=== PATIENT | male | born 1930 | race Asian ===

== ENCOUNTER → 2016-06-10 | Outpatient (CLI) | payer BC ==
[~2016-06-10] MED LIST: ATOR-22 PO; CALC-20 PO; CARB25TA PO; CEPH500C2 PO; CHOL1000 PO; FERR325T74 PO; HYDR-5688 PO; LOSA100T2 PO; METO25TA56 PO; PLV75 PO; RASA1TAB PO; SILO8CAP PO; TOLT2TAB9 PO; TRAV0.00 OP; VSC/10 PO
== END | disposition home or self-care (01) ==
LOC: C.MAMM 14:54
PROVIDERS: ATTEND Family Medicine
DX: M81.0 Age-related osteoporosis without current pathological fracture (principal)

== ENCOUNTER → 2016-09-17 | Outpatient (CLI) | payer BC ==
[~2016-09-17] MED LIST changes: -CEPH500C2 PO; -HYDR-5688 PO
[2016-09-17 17:30] LABS: BLOOD UREA NITROGEN 46 mg/dl (7-18)
== END | disposition home or self-care (01) ==
LOC: C.LABBC 14:48
PROVIDERS: ATTEND Psychiatry & Neurology Neurology
DX: N18.3 Chronic kidney disease, stage 3 (moderate) (principal); R48.2 Apraxia; F09 Unspecified mental disorder due to known physiological condition

== ENCOUNTER → 2016-09-19 | Outpatient (CLI) | payer BC ==
--- NOTE | 2016-09-19 09:13 | DIAGNOSTIC IMAGING REPORT ---
Brain MRI WITHOUT CONTRAST HISTORY: Mental status change COGNITIVE DISORDER TECHNIQUE: Multiplanar multisequence MRI of the brain was performed without the use of contrast. COMPARISON STUDY: None. FINDINGS: There are no areas of restricted diffusion to suggest acute infarction. The midline structures are intact. The paranasal sinuses are clear. The mastoid air cells are clear. The ventricles and sulci are within normal limits for age. There is no mass, hematoma, midline shift. The major vascular flow-voids at the skull base are well maintained. Considerable chronic small vessel change of the periventricular deep white matter regions. No midline shift. Generalized atrophy. IMPRESSION: Moderate atrophy. Considerable chronic small vessel change. No acute intracranial abnormality. Electronically signed by: Jason Steinberg M.D. 09/19/2016 9:11 AM Dictated Date/Time: 09/19/2016 9:08 AM
== END | disposition home or self-care (01) ==
LOC: C.MRIBC 07:45
PROVIDERS: ATTEND Psychiatry & Neurology Neurology
DX: F09 Unspecified mental disorder due to known physiological condition (principal); R48.2 Apraxia; G31.9 Degenerative disease of nervous system, unspecified

== ENCOUNTER 2016-12-26 11:46 | Inpatient (IN) | payer BC, OTHER ==
[~2016-12-26] VITALS: Ht 170.2 cm; Wt 57.7 kg
[~2016-12-26 11:46] MED LIST changes: -PLV75 PO; -TOLT2TAB9 PO
--- NOTE | 2016-12-26 12:35 | EMERGENCY ROOM VISIT NOTE ---
History Report prepared by Alba: Juan Quiroga Under the Supervision of: Dr. Halina Mcdaniels D.O. First contact with patient: 12:16 Chief Complaint: WEAKNESS Stated Complaint: CANNOT WALK Nursing Triage Summary: Patient reports bilateral leg weakness that began yesterday. Patient states he feels like he is not able to pick and shovel worker his feet. Patient also had a recent fall approx a week ago. Patient has bruising to right lower arm and hand from the fall. History of Present Illness The patient is an 86 year old male who presents to the Emergency Room with complaints of sudden onset and worsening bilateral leg weakness that started yesterday. This weakness is worse with walking. The patient reports typically walking with a cane or walker but now being unable to walk at all. Additional symptoms include a loss of appetite and frequent urination. Patient denies fevers, nausea, vomiting, diarrhea, abdominal pain, pain in legs, chest pain, and dizziness. The patient notes that he suffered a fall approximately two weeks ago. Source of History: patient Onset: Yesterday Position: leg (bilateral) Timing: worsening Modifying Factors (Worsening): other (Walking) Associated Symptoms: + urinary symptoms (Frequent urination ), No fevers, No chest pain, No nausea, No vomiting, No diarrhea Note: Additional associated symptoms include loss of appetite. Review of Systems See HPI for pertinent positives & negatives. A total of 10 systems reviewed and were otherwise negative. Past Medical & Surgical Medical Problems: (1) Benign hypertension (2) Heart disease (3) Inguinal hernia (4) Leg weakness, bilateral (5) Parkinson's disease Family History Unknown Social History Smoking Status: Never Smoker Alcohol Use: none Drug Use: none Marital Status: Housing Status: lives with significant other Current/Historical Medications Scheduled Atorvastatin (Lipitor), 20 MG PO QPM Carbidopa-Levodopa (Sinemet Cr 25MG/100MG), 2 TAB PO TID Clopidogrel Bisulfate (Clopidogrel), 1 TAB PO DAILY Losartan Potassium & Hydrochlo (Hyzaar), 1 TABLET PO QAM Metoprolol Tartrate (Lopressor) (Lopressor), 12.5 MG PO BID Rasagiline Mesylate (Azilect), 1 MG PO DAILY Tolterodine Tartrate (Tolterodine Tartrate), 1 TAB PO BID Travoprost (Travatan Z), 1 DROPS OP QAM Allergies Coded Allergies: Alfuzosin (Unverified Allergy, Unknown, DIZZY, 12/26/16) Lactose Intolerance (GI) (Unverified Allergy, Unknown, diarrhea with milk products, 12/26/16) Physical Exam Vital Signs Date Time Temp Pulse Resp B/P (MAP) Pulse Ox O2 Delivery O2 Flow Rate FiO2 12/26/16 17:56 69 13 207/79 99 Room Air 12/26/16 17:28 64 202/85 12/26/16 17:00 62 19 197/90 96 Room Air 12/26/16 16:18 69 12/26/16 16:00 67 20 209/91 96 Room Air 12/26/16 14:53 65 18 194/84 97 Room Air 12/26/16 13:47 57 20 198/73 99 Room Air 12/26/16 12:13 97 Room Air 12/26/16 12:08 50 12/26/16 11:49 36.7 51 18 145/63 98 Room Air Physical Exam GENERAL: alert, well appearing, well nourished, no distress, non-toxic EYE EXAM: normal conjunctiva, PERRL and EOM's grossly intact OROPHARYNX: no exudate, no erythema, lips, buccal mucosa, and tongue normal and mucous membranes are mildly dry. NECK: supple, no nuchal rigidity, no adenopathy, non-tender LUNGS: Clear to auscultation. Normal chest wall mechanics HEART: no murmurs, S1 normal and S2 normal ABDOMEN: abdomen soft, non-tender, normo-active bowel sounds, no masses, no rebound or guarding. BACK: Back is symmetrical on inspection and there is no deformity, no midline tenderness, no CVA tenderness. SKIN: no rashes and no bruising UPPER EXTREMITIES: Resolving ecchymosis of right forearm. upper extremities are otherwise grossly normal. LOWER EXTREMITIES: No pitting edema. NEURO EXAM: Normal sensorium, cranial nerves II-XII grossly intact, normal speech, no gross weakness of arms, no gross weakness of legs. Medical Decision & Procedures ER Provider Diagnostic Interpretation: Radiology results have been interpreted by the radiologist and reviewed by me. HEAD WITHOUT CONTRAST (CT) CT DOSE: 767.83 mGy.cm HISTORY: Mental status change leg weakness TECHNIQUE: Multiaxial CT images of the head were performed without the use of intravenous contrast. A dose lowering technique was utilized adhering to the principles of ALARA. Comparison: 08/12/2012 Findings: The paranasal sinuses and mastoid air cells are clear. Moderate cerebellar as well as cerebral atrophy. No acute intracranial hemorrhage. No midline shift. Impression: No acute process. Atrophy. The above report was generated using voice recognition software. It may contain grammatical, syntax or spelling errors. Electronically signed by: Jason Steinberg M.D. 12/26/2016 1:24 PM Dictated Date/Time: 12/26/2016 1:22 PM RIGHT FOREARM 2 VIEWS ROUTINE CLINICAL HISTORY: fall Right trauma. Pain. COMPARISON: None. DISCUSSION: The bones and joint spaces appear intact. There is no evidence of fracture, dislocation or bony disease. There is no evidence for soft tissue swelling. IMPRESSION: Negative study. The above report was generated using voice recognition software. It may contain grammatical, syntax or spelling errors. Electronically signed by: Jason Steinberg M.D. 12/26/2016 1:36 PM Dictated Date/Time: 12/26/2016 1:35 PM CHEST ONE VIEW PORTABLE CLINICAL HISTORY: weakness dyspnea COMPARISON STUDY: 08/04/2015 FINDINGS: Moderate stable cardiomegaly. Prior median sternotomy. Chronic emphysematous change. Chronic fullness the pulmonary vasculature. No focal infiltrate. IMPRESSION: Moderate stable cardiomegaly. Chronic pulmonary vascular congestion. The above report was generated using voice recognition software. It may contain grammatical, syntax or spelling errors. Electronically signed by: Jason Steinberg M.D. 12/26/2016 1:37 PM Dictated Date/Time: 12/26/2016 1:36 PM Laboratory Results 12/26/16 12:30 Red Blood Count 3.29, Mean Corpuscular Volume 90.3, Mean Corpuscular Hemoglobin 27.4, Mean Corpuscular Hemoglobin Concent 30.3, Mean Platelet Volume 10.7, Neutrophils (%) (Auto) 68.4, Lymphocytes (%) (Auto) 22.6, Monocytes (%) (Auto) 7.5, Eosinophils (%) (Auto) 1.1, Basophils (%) (Auto) 0.2, Neutrophils # (Auto) 3.00, Lymphocytes # (Auto) 0.99, Monocytes # (Auto) 0.33, Eosinophils # (Auto) 0.05, Basophils # (Auto) 0.01 12/26/16 12:30 Test 12/26/16 12:30 12/26/16 12:53 White Blood Count 4.39 K/uL (4.8-10.8) Red Blood Count 3.29 M/uL (4.7-6.1) Hemoglobin 9.0 g/dL (14.0-18.0) Hematocrit 29.7 % (42-52) Mean Corpuscular Volume 90.3 fL (80-100) Mean Corpuscular Hemoglobin 27.4 pg (25-34) Mean Corpuscular Hemoglobin Concent 30.3 g/dl (32-36) Platelet Count 155 K/uL (130-400) Mean Platelet Volume 10.7 fL (7.4-10.4) Neutrophils (%) (Auto) 68.4 % Lymphocytes (%) (Auto) 22.6 % Monocytes (%) (Auto) 7.5 % Eosinophils (%) (Auto) 1.1 % Basophils (%) (Auto) 0.2 % Neutrophils # (Auto) 3.00 K/uL (1.4-6.5) Lymphocytes # (Auto) 0.99 K/uL (1.2-3.4) Monocytes # (Auto) 0.33 K/uL (0.11-0.59) Eosinophils # (Auto) 0.05 K/uL (0-0.5) Basophils # (Auto) 0.01 K/uL (0-0.2) RDW Standard Deviation 48.0 fL (36.4-46.3) RDW Coefficient of Variation 14.6 % (11.5-14.5) Immature Granulocyte % (Auto) 0.2 % Immature Granulocyte # (Auto) 0.01 K/uL (0.00-0.02) Prothrombin Time 10.8 SECONDS (9.0-12.0) Prothromb Time International Ratio 1.0 (0.9-1.1) Anion Gap 6.0 mmol/L (3-11) Est Creatinine Clear Calc Drug Dose 18.4 ml/min Estimated GFR () 27.3 Estimated GFR (Non- 23.5 BUN/Creatinine Ratio 23.2 (10-20) Lactic Acid Level 1.5 mmol/L (0.4-2.0) Calcium Level 8.3 mg/dl (8.5-10.1) Magnesium Level 2.3 mg/dl (1.8-2.4) Total Bilirubin 0.5 mg/dl (0.2-1) Aspartate Amino Transf (AST/SGOT) 17 U/L (15-37) Alanine Aminotransferase (ALT/SGPT) 10 U/L (12-78) Alkaline Phosphatase 61 U/L (45-117) Troponin I 0.048 ng/ml (0-0.045) Total Protein 6.2 gm/dl (6.4-8.2) Albumin 3.5 gm/dl (3.4-5.0) Globulin 2.7 gm/dl (2.5-4.0) Albumin/Globulin Ratio 1.3 (0.9-2) Thyroid Stimulating Hormone (TSH) 0.749 uIu/ml (0.300-4.500) Urine Color YELLOW Urine Appearance CLEAR (CLEAR) Urine pH 6.0 (4.5-7.5) Urine Specific [place] 1.015 (1.000-1.030) Urine Protein 1+ (NEG) Urine Glucose (UA) NEG (NEG) Urine Ketones NEG (NEG) Urine Occult Blood NEG (NEG) Urine Nitrite NEG (NEG) Urine Bilirubin NEG (NEG) Urine Urobilinogen NEG (NEG) Urine Leukocyte Esterase NEG (NEG) Urine WBC (Auto) 0 /hpf (0-5) Urine RBC (Auto) 0-4 /hpf (0-4) Urine Hyaline Casts (Auto) 0 /lpf (0-5) Urine Epithelial Cells (Auto) 0-5 /lpf (0-5) Urine Bacteria (Auto) NEG (NEG) Laboratory results per my review. Medications Administered Medications (Trade) Dose Ordered Sig/Janet Route Start Time Stop Time Status Last Admin Dose Admin Aspirin/Aluminum/ Magnesium/Ca Carb (Ascriptin Tab) 325 mg NOW STAT PO 12/26/16 14:07 12/26/16 14:09 DC 12/26/16 14:50 325 MG Hydralazine HCl (HydrALAZINE INJ) 10 mg Q8H PRN IV. 12/26/16 15:15 01/25/17 15:14 12/26/16 17:31 10 MG Losartan Potassium (coZAAR TAB) 100 mg 1620 ONCE PO 12/26/16 16:20 12/26/16 16:50 DC 12/26/16 17:14 100 MG ECG Indication: weakness Rate (beats per minute): 49 Rhythm: sinus bradycardia Findings: no acute ischemic change, other (Normal axis, normal intervals, flattened t-wave throughout) ED Course 1219: The patient was evaluated in room B8. A complete history and physical exam was performed. 1222: Upon further EMR review, it was found that the patient had an MRI in September for cognitive disorder. 1342: I updated the patient on the treatment plan. He is agreeable at this time. 1407: Ordered Ascriptin Tablet 325 mg PO. 1404: I reviewed the patient's case with Dr. Nelson ([facility] [place]). She will evaluate the patient for further management. Medical Decision Differential Diagnosis includes but is not limited to dehydration, stroke, anemia, hypoglycemia, hyponatremia, hypernatremia, urinary tract infection, pneumonia, bronchitis, sepsis, gastroenteritis, additional abdominal pathology, metabolic abnormalities and infections. Unclear etiology of worsening lower extremity weakness and ambulatory dysfunction. No apparent bacteremia/sepsis or other infectious etiology. Patient with a history of Parkinson's disease leading to shuffling gait, however not usually this ataxic per description of both patient and at bedside. No other recent medication changes, no acute collection light abnormalities, anemia and chronic kidney disease appear stable compared to baseline. Patient admitted here for continued evaluation and treatment, given age and comorbidities and saturation of possible CVA/TIA or cerebellar pathology. Patient and verbalized understanding of all results were agreeable with plan. No evidence of acute cardiac etiology, patient with no history of prior back injury or symptoms to suggest cauda equina/discitis/ epidural abscess or hematoma/acute nerve impingement. Mildly elevated troponin more likely secondary to chronic kidney disease, patient with no symptoms to suggest acute coronary syndrome, EKG not suggestive of acute ischemic changes either. Medication Reconcilliation Current Medication List: was personally reviewed by me Blood Pressure Screening Patient's blood pressure: Elevated blood pressure Blood pressure disposition: Referred to PCP Consults Time Called: 1352 Consulting Physician: Dr. Nelson ([facility] [place]) Returned Call: [phone] I reviewed the patient's case with Dr. Nelson ([facility] [place]). She will evaluate the patient for further management. Impression Primary Impression: Leg weakness, bilateral Additional Impressions: Parkinson's disease Chronic kidney disease (CKD) Elevated troponin Scribe Attestation The scribe's documentation has been prepared under my direction and personally reviewed by me in its entirety. I confirm that the note above accurately reflects all work, treatment, procedures, and medical decision making performed by me. Departure Information Dispostion Being Evaluated By Hospitalist Referrals No Doctor, Assigned (PCP) Patient Instructions My [facility] Problem Qualifiers Additional Impressions: Chronic kidney disease (CKD) Chronic kidney disease stage: unspecified stage Qualified Codes: N18.9 - Chronic kidney disease, unspecified
[2016-12-26 13:02] LABS: BASO % 0.2 %; BASO ABS # 0.01 K/uL (0-0.2); COMPLETE YES; EOS % 1.1 %; HEMATOCRIT 29.7 % (42-52); IG% 0.2 %; LYMPH % 22.6 %; LYMPH ABS # 0.99 K/uL (1.2-3.4); MEAN CELL VOLUME 90.3 fL (80-100); MEAN CORPUSCULAR HEMOGLOBIN 27.4 pg (25-34); MEAN CORPUSCULAR HGB CONC 30.3 g/dl (32-36); MEAN PLATELET VOLUME 10.7 fL (7.4-10.4); MONO % 7.5 %; NEUT % 68.4 %; PLATELET COUNT 155 K/uL (130-400); RED BLOOD COUNT 3.29 M/uL (4.7-6.1); WHITE BLOOD COUNT 4.39 K/uL (4.8-10.8)
[2016-12-26 13:08] LABS: PROTHROMBIN TIME (PATIENT) 10.8 SECONDS (9.0-12.0)
[2016-12-26 13:16] LABS: BUN/CREATININE RATIO 23.2 (10-20); CALCIUM 8.3 mg/dl (8.5-10.1); CREATININE 2.4 mg/dl (0.60-1.40); MAGNESIUM 2.3 mg/dl (1.8-2.4); POTASSIUM 3.7 mmol/L (3.5-5.1)
[2016-12-26 13:21] LABS: URINE APPEARANCE CLEAR (CLEAR); URINE BILIRUBIN NEG (NEG); URINE COLOR YELLOW; URINE EPITHELIAL CELL AUTO 0-5 /lpf (0-5); URINE NITRITE NEG (NEG); URINE SPECIFIC GRAVITY 1.015 (1.000-1.030); UROBILINOGEN NEG (NEG); ZZUR CULT IF INDIC CLEAN CATCH NO
[2016-12-26 13:24] LABS: MANUAL MICROSCOPIC REQUIRED? NO; REVIEW REQ? NO
--- NOTE | 2016-12-26 13:25 | DIAGNOSTIC IMAGING REPORT ---
HEAD WITHOUT CONTRAST (CT) CT DOSE: 767.83 mGy.cm HISTORY: Mental status change leg weakness TECHNIQUE: Multiaxial CT images of the head were performed without the use of intravenous contrast. A dose lowering technique was utilized adhering to the principles of ALARA. Comparison: 08/12/2012 Findings: The paranasal sinuses and mastoid air cells are clear. Moderate cerebellar as well as cerebral atrophy. No acute intracranial hemorrhage. No midline shift. Impression: No acute process. Atrophy. The above report was generated using voice recognition software. It may contain grammatical, syntax or spelling errors. Electronically signed by: Jason Steinberg M.D. 12/26/2016 1:24 PM Dictated Date/Time: 12/26/2016 1:22 PM
[2016-12-26 13:31] LABS: ALB/GLOB RATIO 1.3 (0.9-2); THYROID STIMULATING HORMONE 0.749 uIu/ml (0.300-4.500)
--- NOTE | 2016-12-26 13:37 | DIAGNOSTIC IMAGING REPORT ---
RIGHT FOREARM 2 VIEWS ROUTINE CLINICAL HISTORY: fall Right trauma. Pain. COMPARISON: None. DISCUSSION: The bones and joint spaces appear intact. There is no evidence of fracture, dislocation or bony disease. There is no evidence for soft tissue swelling. IMPRESSION: Negative study. The above report was generated using voice recognition software. It may contain grammatical, syntax or spelling errors. Electronically signed by: Jason Steinberg M.D. 12/26/2016 1:36 PM Dictated Date/Time: 12/26/2016 1:35 PM
--- NOTE | 2016-12-26 13:38 | DIAGNOSTIC IMAGING REPORT ---
CHEST ONE VIEW PORTABLE CLINICAL HISTORY: weakness dyspnea COMPARISON STUDY: 08/04/2015 FINDINGS: Moderate stable cardiomegaly. Prior median sternotomy. Chronic emphysematous change. Chronic fullness the pulmonary vasculature. No focal infiltrate. IMPRESSION: Moderate stable cardiomegaly. Chronic pulmonary vascular congestion. The above report was generated using voice recognition software. It may contain grammatical, syntax or spelling errors. Electronically signed by: Jason Steinberg M.D. 12/26/2016 1:37 PM Dictated Date/Time: 12/26/2016 1:36 PM
[2016-12-26] MEDS ORDERED: ASPIRIN/ALUM/MAGNES/CAL CARB 325 MG TAB PO STA (14:07)
[2016-12-26] MEDS ORDERED: PLV75 PO (14:15)
[2016-12-26] MEDS ORDERED: TOLT2TAB9 PO (14:15)
[2016-12-26] MEDS ORDERED: PHARMACIST DISCHARGE MED REC CONSULT PRN (15:45)
[2016-12-26] MEDS ORDERED: ACETAMINOPHEN 325 MG TAB PO PRN (15:45)
[2016-12-26] MEDS ORDERED: LOSARTAN POTASSIUM 50 MG TAB PO ONE (16:20)
--- NOTE | 2016-12-26 16:38 | Medical Student: [facility] ---
Med Student History & Physical Date & Time of Service: Dec 26, 2016 at 16:13 Chief Complaint: Cannot Walk Primary Care Physician: Gene Crawford M.D. History of Present Illness Source: patient Patient is a 86yo male with history of Parkinson, HTN, CAD with 4x bypass in 2007 presenting with bilateral leg weakness leading to difficulty walking. Patient states the symptoms began yesterday when he was standing. Suddenly, the patient experienced bilaterally, RT worse than LT, which made him feel " unstable. This sensation persisted and when he woke this am, patient felt similar with minimal change from previous night. Patient denies any PICKENS, dizziness, falls LOC, changes in vision/hearing, no speech changes or difficulty , N/V, fever, chills, diaphoresis, pain in legs/chest/abd, SOB, tachycardia, or tachypnea. He has had a recent fall 2wks ago that was not followed up medically and has experienced increased urinary frequency without change in quantity/ quality. Patient experiences chronic constipation, "always hears music" x1 month Past Medical/Surgical History PMH Parkinson Chronic constipation HTN CAD s/p CABG x4 in 2007 Urinary urgency PSH CABG x4 vessel 2008 RT inguinal hernia repair Cholecystectomy over 30y ago Family History Father: stomach cancer Mother: HTN, possible [place] with sudden cardiac Sister: DM II No known HX CAD, CVA, DVT, PE Social History Diet reported as "pretty good" Usually freely mobile with use of cane, past few days decreased walking with no desire to stand/walk beyond what is minimally needed Smoking Status: Never Smoker Smokeless Tobacco Use: No Alcohol Use: occasionally (Wine perhaps once a week) Drug Use: none Marital Status: Housing status: lives with significant other Occupational Status: retired Immunizations History of Influenza Vaccine: N/A History of Tetanus Vaccine?: Yes History of Pneumococcal: Unknown History of Hepatitis B Vaccine: No Allergies Coded Allergies: Alfuzosin (Unverified Allergy, Unknown, DIZZY, 12/26/16) Lactose Intolerance (GI) (Unverified Allergy, Unknown, diarrhea with milk products, 12/26/16) Medications Atorvastatin (Lipitor), 20 MG PO QPM Carbidopa-Levodopa (Sinemet Cr 25MG/100MG), 2 TAB PO TID Clopidogrel Bisulfate (Clopidogrel), 1 TAB PO DAILY Losartan Potassium & Hydrochlo (Hyzaar), 1 TABLET PO QAM Metoprolol Tartrate (Lopressor) (Lopressor), 12.5 MG PO BID Rasagiline Mesylate (Azilect), 1 MG PO DAILY Tolterodine Tartrate (Tolterodine Tartrate), 1 TAB PO BID Travoprost (Travatan Z), 1 DROPS OP QAM Review of Systems Constitutional: + weakness, + fatigue, No fever, No chills, No sweats Eyes: No worsening of vision ENT: + problem reported ("always hears music" x1 month), No hearing loss, No tinnitus Respiratory: No shortness of breath Cardiovascular: No chest pain, No edema, No palpitations Abdomen: + constipation (chronic), No pain, No nausea, No vomiting, No diarrhea , No GI bleeding Musculoskeletal: + problem reported (pain in RT neck to shoulder) Genitourinary - Male: + urinary frequency, No dysuria, No urinary urgency, No urinary hesitancy, No urinary retention, No urinary incontinence Neurologic: + weakness, + problem reported (mild cognitive impairment with Parkinson per ), No paralysis, No numbness/tingling Psychiatric: No problem reported Endocrine: + fatigue, + excessive urination, No excessive thirst Hematologic / Lymphatic: No swollen lymph nodes Integumentary: + color change (Ecchymosis on RT forarm from recent fall) Physical Exam Vital Signs (24 Hours) Date Time Temp Pulse Resp B/P (MAP) Pulse Ox O2 Delivery O2 Flow Rate FiO2 12/26/16 14:53 65 18 194/84 97 Room Air 12/26/16 13:47 57 20 198/73 99 Room Air 12/26/16 12:13 97 Room Air 12/26/16 12:08 50 12/26/16 11:49 36.7 51 18 145/63 98 Room Air General Appearance: WD/WN, no apparent distress Head: normocephalic, atraumatic Eyes: normal inspection, PERRL, EOMI, sclerae normal, funduscopic exam normal ENT: hearing grossly normal, pharynx normal Neck: supple, no adenopathy, thyroid normal, no JVD, no carotid bruits, trachea midline Respiratory/Chest: chest non-tender, lungs clear, normal breath sounds, no respiratory distress, no accessory muscle use Cardiovascular: regular rate, rhythm, + diastolic murmur, + systolic murmur, + extra beats Abdomen/GI: normal bowel sounds, non tender, soft, no organomegaly, no pulsatile mass Back: normal inspection Extremities/Musculoskelatal: no calf tenderness, normal capillary refill, normal range of motion, + pedal edema (minimal) Neurologic/Psych: keyliner II-XII nml as tested, no motor/sensory deficits, alert, normal mood/affect, normal reflexes, oriented x 3 Skin: normal color, warm/dry, no rash Lymphatic: no adenopathy Diagnostics Laboratory Results Results Past 24 Hours Test 12/26/16 12:30 12/26/16 12:53 Range/Units White Blood Count 4.39 4.8-10.8 K/uL Red Blood Count 3.29 4.7-6.1 M/uL Hemoglobin 9.0 14.0-18.0 g/dL Hematocrit 29.7 42-52 % Mean Corpuscular Volume 90.3 80-100 fL Mean Corpuscular Hemoglobin 27.4 25-34 pg Mean Corpuscular Hemoglobin Concent 30.3 32-36 g/dl Platelet Count 155 130-400 K/uL Mean Platelet Volume 10.7 7.4-10.4 fL Neutrophils (%) (Auto) 68.4 % Lymphocytes (%) (Auto) 22.6 % Monocytes (%) (Auto) 7.5 % Eosinophils (%) (Auto) 1.1 % Basophils (%) (Auto) 0.2 % Neutrophils # (Auto) 3.00 1.4-6.5 K/uL Lymphocytes # (Auto) 0.99 1.2-3.4 K/uL Monocytes # (Auto) 0.33 0.11-0.59 K/uL Eosinophils # (Auto) 0.05 0-0.5 K/uL Basophils # (Auto) 0.01 0-0.2 K/uL RDW Standard Deviation 48.0 36.4-46.3 fL RDW Coefficient of Variation 14.6 11.5-14.5 % Immature Granulocyte % (Auto) 0.2 % Immature Granulocyte # (Auto) 0.01 0.00-0.02 K/uL Prothrombin Time 10.8 9.0-12.0 SECONDS Prothromb Time International Ratio 1.0 0.9-1.1 Sodium Level 143 136-145 mmol/L Potassium Level 3.7 3.5-5.1 mmol/L Chloride Level 110 98-107 mmol/L Carbon Dioxide Level 27 21-32 mmol/L Anion Gap 6.0 3-11 mmol/L Blood Urea Nitrogen 56 7-18 mg/dl Creatinine 2.40 0.60-1.40 mg/dl Est Creatinine Clear Calc Drug Dose 18.4 ml/min Estimated GFR () 27.3 Estimated GFR (Non- 23.5 BUN/Creatinine Ratio 23.2 10-20 Random Glucose 92 70-99 mg/dl Lactic Acid Level 1.5 0.4-2.0 mmol/L Calcium Level 8.3 8.5-10.1 mg/dl Magnesium Level 2.3 1.8-2.4 mg/dl Total Bilirubin 0.5 0.2-1 mg/dl Aspartate Amino Transf (AST/SGOT) 17 15-37 U/L Alanine Aminotransferase (ALT/SGPT) 10 12-78 U/L Alkaline Phosphatase 61 45-117 U/L Troponin I 0.048 0-0.045 ng/ml Total Protein 6.2 6.4-8.2 gm/dl Albumin 3.5 3.4-5.0 gm/dl Globulin 2.7 2.5-4.0 gm/dl Albumin/Globulin Ratio 1.3 0.9-2 Thyroid Stimulating Hormone (TSH) 0.749 0.300-4.500 uIu/ml Urine Color YELLOW Urine Appearance CLEAR CLEAR Urine pH 6.0 4.5-7.5 Urine Specific [place] 1.015 1.000-1.030 Urine Protein 1+ NEG Urine Glucose (UA) NEG NEG Urine Ketones NEG NEG Urine Occult Blood NEG NEG Urine Nitrite NEG NEG Urine Bilirubin NEG NEG Urine Urobilinogen NEG NEG Urine Leukocyte Esterase NEG NEG Urine WBC (Auto) 0 0-5 /hpf Urine RBC (Auto) 0-4 0-4 /hpf Urine Hyaline Casts (Auto) 0 0-5 /lpf Urine Epithelial Cells (Auto) 0-5 0-5 /lpf Urine Bacteria (Auto) NEG NEG Diagnostic Radiology CHEST XRAY IMPRESSION: Moderate stable cardiomegaly. Chronic pulmonary vascular congestion. Head CT Impression: No acute process. Atrophy. Impression Assessment and Plan Patient is an 86yo male with history of Parkinson disease, CAD s/p CABG, HTN, CKD, and chronic constipation presenting with bilateral leg weakness secondary to acute ischemic stroke v. Parkinson disease progression Leg weakness - reported by patient with no significant deficiency motor function or strength on exam - Acute CVA r/o - - Head CT in ER ruled out hermorrhagic change - Consult with neurology revealed weakness is a common complaint amongst Parkinson patients, suggestions: - Complete brain MRI to r/o ischemic change, compare to most recent image - Echo, MRA and carotid Doppler not recommended at this time due to atypical presentation and Parkinson history - Until MRI is completed to r/o stroke, maintain BP above 160/90 with fluid bolus PRN to prevent induced ischemia - Continuous nuclear monitoring technician for possible afib, D/C following negative brain MRI results - Parkinson disease: chronic - Continue home Rasagiline Mesylate 1mg and Carbidopa-Levodopa 25MG/100MG TID CAD s/p x4 vessel CABG in 2007: stable - Continue home clopidogrel 75mg, atorvastatin 20mg, metoprolol 25mg Hypertension: 200/100s - until stroke ruled out, maintain BP above 160/90 to prevent induced ischemia - Continue home losartan 25mg - campus monitor with vital signs q4 CKD: BUN 56 Creat 2.4 - relatively close to established base - Trend BUN and creatinine while patient is hospitalized Level of Care Telemetry Resuscitation Status DO NOT RESUSCITATE DVT Prophylaxis enoxaparin (Lovenox) SQ, SCDs Social Service Consult None Apply Note Total Time: Critical Care 30 - 74 minutes
[2016-12-26] MEDS: HydrALAZINE HCL 20 MG/ML VIAL IV. PRN (17:31)
[2016-12-26 18:45] VITALS: BP 210/90; PULSE 72; TEMP 37.1; O2SAT 97
[2016-12-26] MEDS ORDERED: NURSING VERBAL MED ORDER ONE (19:00)
[2016-12-26] MEDS ORDERED: HydrALAZINE HCL 20 MG/ML VIAL IV. ONE (19:15)
[2016-12-26 19:48] VITALS: BP 203/79
[2016-12-26 20:00] VITALS: BP 210/90; PULSE 72; TEMP 37.1; O2SAT 97; Ht 170.2 cm; Wt 57.7 kg
[2016-12-26 20:57] VITALS: BP 119/51
[2016-12-26] MEDS: METOPROLOL TARTRATE 25 MG TAB PO SCH (21:08)
[2016-12-26] MEDS: TOLTERODINE TARTRATE 2 MG TAB PO SCH (21:08)
[2016-12-26] MEDS: ATORVASTATIN 20 MG TAB PO SCH (21:08)
[2016-12-26] MEDS: CARBIDOPA/LEVODOPA 25/100MG EXT REL TAB PO SCH (21:09)
[2016-12-26] MEDS: HEPARIN SOD 5000 UNIT/0.5 ML CARP SQ SCH (21:10)
[2016-12-26 22:28] LABS: CKMB/CK RATIO 1.7 (0-3.0)
[2016-12-26 23:39] VITALS: BP 156/66; PULSE 63; TEMP 37.3; O2SAT 97
[2016-12-27] VITALS (10 sets, daily range): BP systolic 142–196; BP diastolic 59–74; PULSE 46–59; TEMP 36.3–36.9; O2SAT 95–99
--- NOTE | 2016-12-27 03:08 | History and Physical ---
History & Physical Date & Time of Service: Dec 26, 2016 at 15:04 Chief Complaint: Cannot Walk Primary Care Physician: Gene Crawford M.D. History of Present Illness Source: patient Pt is an 86 yo male with a h/o CKD, HTN, PD, chronic constipation, and CAD s/p CABG 2001 who presents with sudden inability to walk with bilateral leg weakness R>L x 1 day. He was able to continue walking but rested, and when he woke up today it was slightly better but he decided to come to the ER. He denies any dizziness, LOC, visual or hearing changes, no headache or speech changes, no witnessed facial droop, no nausea or vomiting. He has had some urinary frequency, some chronic difficulty finding words, and has been having auditory hallucinations of hearing music for the last month. He had a fall about 2 weeks ago and did not sustain any injuries, no LOC or head trauma and was not seen by MD. He does normally ambulate with a cane or walker at baseline. Past Medical/Surgical History PMH: CKD Stage HTN Parkinson's Disease Chronic constipation CAD s/p CABG 2001 Overactive bladder PSH: Inguinal hernia-right Cholecystectomy CABG-approx 2001 Family History Unknown Father- stomach CA Mother-HTN, ?[place] and had sudden in her 60s Sister-DMII Social History Smoking Status: Never Smoker Alcohol Use: occasionally (wine 1drink per week) Drug Use: none Marital Status: Housing status: lives with significant other Immunizations History of Influenza Vaccine: N/A History of Tetanus Vaccine?: Yes History of Pneumococcal: Unknown History of Hepatitis B Vaccine: No Multi-Drug Resistant Organisms History of MDRO: No Allergies Coded Allergies: Alfuzosin (Unverified Allergy, Unknown, DIZZY, 12/26/16) Lactose Intolerance (GI) (Unverified Allergy, Unknown, diarrhea with milk products, 12/26/16) Home Medications Scheduled Atorvastatin (Lipitor), 20 MG PO QPM Carbidopa-Levodopa (Sinemet Cr 25MG/100MG), 2 TAB PO TID Clopidogrel Bisulfate (Clopidogrel), 1 TAB PO DAILY Losartan Potassium & Hydrochlo (Hyzaar), 1 TABLET PO QAM Metoprolol Tartrate (Lopressor) (Lopressor), 12.5 MG PO BID Rasagiline Mesylate (Azilect), 1 MG PO DAILY Tolterodine Tartrate (Tolterodine Tartrate), 1 TAB PO BID Travoprost (Travatan Z), 1 DROPS OP QAM Physical Exam Vital Signs Date Time Temp Pulse Resp B/P (MAP) Pulse Ox O2 Delivery O2 Flow Rate FiO2 12/26/16 14:53 65 18 194/84 97 Room Air 12/26/16 13:47 57 20 198/73 99 Room Air 12/26/16 12:13 97 Room Air 12/26/16 12:08 50 12/26/16 11:49 36.7 51 18 145/63 98 Room Air General Appearance: WD/WN, no apparent distress, + thin Head: normocephalic, atraumatic Eyes: normal inspection, PERRL, EOMI, sclerae normal ENT: hearing grossly normal, pharynx normal Neck: supple, no adenopathy, thyroid normal, no JVD, no carotid bruits, trachea midline Respiratory/Chest: lungs clear, normal breath sounds, no respiratory distress, no accessory muscle use Cardiovascular: regular rate, rhythm, no edema, no gallop, normal peripheral pulses, + systolic murmur (2/6 DANNIELLE at [facility]) Abdomen/GI: normal bowel sounds, non tender, soft, no organomegaly Back: normal inspection Extremities/Musculoskelatal: normal inspection (except right forearm and wrist with ecchymosis, nontender), no calf tenderness, no pedal edema, normal range of motion 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, no motor/sensory deficits, alert, normal mood/affect, normal reflexes Skin: normal color, warm/dry, no rash Diagnostics Laboratory Results Results Past 24 Hours Test 12/26/16 12:30 12/26/16 12:53 Range/Units White Blood Count 4.39 4.8-10.8 K/uL Red Blood Count 3.29 4.7-6.1 M/uL Hemoglobin 9.0 14.0-18.0 g/dL Hematocrit 29.7 42-52 % Mean Corpuscular Volume 90.3 80-100 fL Mean Corpuscular Hemoglobin 27.4 25-34 pg Mean Corpuscular Hemoglobin Concent 30.3 32-36 g/dl Platelet Count 155 130-400 K/uL Mean Platelet Volume 10.7 7.4-10.4 fL Neutrophils (%) (Auto) 68.4 % Lymphocytes (%) (Auto) 22.6 % Monocytes (%) (Auto) 7.5 % Eosinophils (%) (Auto) 1.1 % Basophils (%) (Auto) 0.2 % Neutrophils # (Auto) 3.00 1.4-6.5 K/uL Lymphocytes # (Auto) 0.99 1.2-3.4 K/uL Monocytes # (Auto) 0.33 0.11-0.59 K/uL Eosinophils # (Auto) 0.05 0-0.5 K/uL Basophils # (Auto) 0.01 0-0.2 K/uL RDW Standard Deviation 48.0 36.4-46.3 fL RDW Coefficient of Variation 14.6 11.5-14.5 % Immature Granulocyte % (Auto) 0.2 % Immature Granulocyte # (Auto) 0.01 0.00-0.02 K/uL Prothrombin Time 10.8 9.0-12.0 SECONDS Prothromb Time International Ratio 1.0 0.9-1.1 Sodium Level 143 136-145 mmol/L Potassium Level 3.7 3.5-5.1 mmol/L Chloride Level 110 98-107 mmol/L Carbon Dioxide Level 27 21-32 mmol/L Anion Gap 6.0 3-11 mmol/L Blood Urea Nitrogen 56 7-18 mg/dl Creatinine 2.40 0.60-1.40 mg/dl Est Creatinine Clear Calc Drug Dose 18.4 ml/min Estimated GFR () 27.3 Estimated GFR (Non- 23.5 BUN/Creatinine Ratio 23.2 10-20 Random Glucose 92 70-99 mg/dl Lactic Acid Level 1.5 0.4-2.0 mmol/L Calcium Level 8.3 8.5-10.1 mg/dl Magnesium Level 2.3 1.8-2.4 mg/dl Total Bilirubin 0.5 0.2-1 mg/dl Aspartate Amino Transf (AST/SGOT) 17 15-37 U/L Alanine Aminotransferase (ALT/SGPT) 10 12-78 U/L Alkaline Phosphatase 61 45-117 U/L Troponin I 0.048 0-0.045 ng/ml Total Protein 6.2 6.4-8.2 gm/dl Albumin 3.5 3.4-5.0 gm/dl Globulin 2.7 2.5-4.0 gm/dl Albumin/Globulin Ratio 1.3 0.9-2 Thyroid Stimulating Hormone (TSH) 0.749 0.300-4.500 uIu/ml Urine Color YELLOW Urine Appearance CLEAR CLEAR Urine pH 6.0 4.5-7.5 Urine Specific [place] 1.015 1.000-1.030 Urine Protein 1+ NEG Urine Glucose (UA) NEG NEG Urine Ketones NEG NEG Urine Occult Blood NEG NEG Urine Nitrite NEG NEG Urine Bilirubin NEG NEG Urine Urobilinogen NEG NEG Urine Leukocyte Esterase NEG NEG Urine WBC (Auto) 0 0-5 /hpf Urine RBC (Auto) 0-4 0-4 /hpf Urine Hyaline Casts (Auto) 0 0-5 /lpf Urine Epithelial Cells (Auto) 0-5 0-5 /lpf Urine Bacteria (Auto) NEG NEG Diagnostic Radiology Head CT: Atrophy, no acute changes Chest x-ray:: Moderate stable cardiomegaly. Chronic pulmonary vascular congestion. Right forearm x-ray negative for fracture EKG Sinus bradycardia, LVH with repolarization abnormality, no ischemic changes Impression Assessment and Plan Pt is an 86 yo male with a h/o CKD, HTN, PD, chronic constipation, and CAD s/p CABG 2007 who presents with sudden inability to walk with bilateral leg weakness R>L x 1 day. He was able to continue walking but rested, and when he woke up today it was slightly better but he decided to come to the ER. He denies any dizziness, LOC, visual or hearing changes, no headache or speech changes, no witnessed facial droop, no nausea or vomiting. He has had some urinary frequency, some chronic difficulty finding words, and has been having auditory hallucinations of hearing music for the last month. He had a fall about 2 weeks ago and did not sustain any injuries, no LOC or head trauma and was not seen by MD. He does normally ambulate with a cane or walker at baseline. Bilateral Leg weakness/Parkinson's disease - reported by patient with no significant deficiency motor function or strength on exam. Could be secondary to Parkinson's vs more of an ataxia rather than weakness. Case discussed with neurology on the phone. No concern for cauda equina syndrome at this time. Was given aspirin in the ER - Acute CVA r/o - - Head CT negative - Consult with neurology -Check MRI of the brain - MRA and carotid Doppler not recommended at this time due to atypical presentation and Parkinson history - Until MRI is completed to r/o stroke, permissive hypertension -Telemetry monitoring for arrhythmia -Neuro checks, PT/OT/speech therapy consults - Parkinson disease: chronic - Continue home Rasagiline Mesylate 1mg and Carbidopa-Levodopa 25MG/100MG TID CAD s/p x4 vessel CABG in 2007: stable - Continue home clopidogrel 75mg, atorvastatin 20mg, metoprolol Hypertension: 200/100s on presentation - until stroke ruled out, maintain BP above 150/80 to prevent induced ischemia but will bring down somewhat with IV hydralazine - Continue home losartan 100mg, hold HCTZ for now CKD stage 3-4: BUN 56 Creat 2.4 - relatively close to established baseline -Follow PRP -Avoid nephrotoxins -Renally dose medications Prophylaxis-heparin Disposition-DO NOT RESUSCITATE/DO NOT INTUBATE Level of Care Telemetry Resuscitation Status DO NOT RESUSCITATE VTE Prophylaxis Given or contraindicated: Unfractionated heparin SQ Additional Copies To Gene Crawford M.D.
[2016-12-27 06:30] LABS: BASO % 0.2 %; BASO ABS # 0.01 K/uL (0-0.2); COMPLETE YES; EOS % 1.4 %; HEMATOCRIT 29.9 % (42-52); IG% 0.2 %; LYMPH % 22.8 %; LYMPH ABS # 0.97 K/uL (1.2-3.4); MEAN CELL VOLUME 88.2 fL (80-100); MEAN CORPUSCULAR HGB CONC 31.8 g/dl (32-36); MEAN PLATELET VOLUME 10.6 fL (7.4-10.4); MONO % 7.3 %; NEUT % 68.1 %; PLATELET COUNT 166 K/uL (130-400); RED BLOOD COUNT 3.39 M/uL (4.7-6.1); WHITE BLOOD COUNT 4.25 K/uL (4.8-10.8)
[2016-12-27 06:59] LABS: BUN/CREATININE RATIO 23.7 (10-20); CALCIUM 8.5 mg/dl (8.5-10.1); CREATININE 2.1 mg/dl (0.60-1.40); POTASSIUM 3.8 mmol/L (3.5-5.1)
[2016-12-27 07:03] LABS: CHOLESTEROL/HDL RATIO 1.8
[2016-12-27 07:07] LABS: CKMB/CK RATIO 1.7 (0-3.0)
[2016-12-27] MEDS: HydrALAZINE HCL 20 MG/ML VIAL IV. PRN (07:24)
[2016-12-27 08:01] LABS: ESTIMATED AVERAGE GLUCOSE 131 mg/dl; HA1C FLAG Normal (Normal)
[2016-12-27] MEDS: RASAGILINE 0.5 MG TAB PO SCH (08:49)
[2016-12-27] MEDS: CARBIDOPA/LEVODOPA 25/100MG EXT REL TAB PO SCH (08:49)
[2016-12-27] MEDS: TOLTERODINE TARTRATE 2 MG TAB PO SCH ×2 (08:50→20:40)
[2016-12-27] MEDS: LOSARTAN POTASSIUM 50 MG TAB PO SCH (08:50)
[2016-12-27] MEDS: CLOPIDOGREL BISULFATE 75 MG TAB PO SCH (08:50)
[2016-12-27] MEDS: TRAVOPROST Z 0.004% OPH SOLN 2.5 ML BTL OP SCH (08:51)
[2016-12-27] MEDS: METOPROLOL TARTRATE 25 MG TAB PO SCH ×2 (08:57→20:35)
[2016-12-27] MEDS: HEPARIN SOD 5000 UNIT/0.5 ML CARP SQ SCH ×2 (09:04→20:43)
[2016-12-27] MEDS ORDERED: POTASSIUM CHLORIDE 20 MEQ TABCR PO STA (11:02)
--- NOTE | 2016-12-27 12:01 | ECHOCARDIOGRAM REPORT ---
*NOTICE TO RECEIVING REPUBLICAN AGENCY This information is strictly Confidential and protected under [place] law. [place] law prohibits you from making any further disclosure of this information unless further disclosure is expressly permitted by the written consent of the person to whom it pertains or is authorized by law. A general authorization for the release of medical or other information is not sufficient for this purpose. Hospital accepts no responsibility if the information is made available to any other person, INCLUDING THE PATIENT. Interpretation Summary * Name: CHARLI REIS Study Date: 12/27/2016 10:08 AM BP: 157/59 mmHg * Patient Location: [facility]\S\N279\S\1 HR: 52 * : 1930 (M/d/yyyy) Gender: Male Height: 67 in * Age: 86 yrs Ethnicity: Weight: 130 lb * Ordering Physician: Mary Nelson * Performed By: Jennifer Moody * * Reason For Study: ELEVATED TROP * BSA: 1.7 m2 * -- Conclusions -- * Left ventricular systolic function is normal. * No regional wall motion abnormalities noted. * Ejection Fraction = 60-65%. * There is moderate concentric left ventricular hypertrophy. * Grade I diastolic dysfunction, (abnormal relaxation pattern). * Mild aortic regurgitation. * Mild to moderate mitral regurgitation. Procedure Details * A complete two-dimensional transthoracic echocardiogram was performed (2D, M-mode, Doppler and color flow Doppler). Left Ventricle * The left ventricle is normal in size. * There is moderate concentric left ventricular hypertrophy. * Ejection Fraction = 60-65%. * Left ventricular systolic function is normal. * No regional wall motion abnormalities noted. Right Ventricle * The right ventricle is not well visualized. * The right ventricular systolic function is normal as assessed by tricuspid annular plane systolic excursion (TAPSE) (normal >1.5 cm). Atria * The left atrium is moderately dilated. * The right atrium is mildly dilated. * There is no evidence of atrial septal defect, but resolution does not allow assessment for a patent foramen ovale. Mitral Valve * The mitral valve is not well visualized. * No significant mitral valve stenosis. * There is mild to moderate mitral regurgitation. * The mitral regurgitant jet is posteriorly directed, which is consistent with anterior leaflet pathology. Tricuspid Valve * The tricuspid valve is not well visualized, but is grossly normal. * There is no tricuspid stenosis. * There is mild tricuspid regurgitation. Aortic Valve * The aortic valve is trileaflet. * The aortic valve opens well. * Aortic valve sclerosis mild, without significant aortic valvular stenosis. * Mild aortic regurgitation. Pulmonic Valve * The pulmonary valve is not well seen, but the Doppler examination is normal without significant regurgitation or stenosis. * Trace pulmonic valvular regurgitation. Great Vessels * The aortic root is normal size. * The pulmonary is not well visualized. Pericardium/Pleural * There is no pericardial effusion. Great Vessels * Normal inferior vena cava size and collapsability with sniff indicates a normal right atrial pressure of 3 mmHg Left Ventricular Diastolic Function * Grade I diastolic dysfunction, (abnormal relaxation pattern). MMode 2D Measurements and Calculations IVSd 2.3 cm IVSs 2.9 cm LVIDd 4.2 cm LVIDs 2.9 cm LVPWd 1.4 cm LVPWs 2.1 cm IVS/LVPW 1.7 FS 32.6 % EDV(Teich) 80.1 ml ESV(Teich) 31.0 ml EF(Teich) 61.3 % EDV(cubed) 75.9 ml ESV(cubed) 23.2 ml EF(cubed) 69.4 % % IVS thick 23.5 % % LVPW thick 55.6 % LV mass(C)d 351.6 grams LV mass(C)dI 208.8 grams/m\S\2 LV mass(C)s 384.1 grams LV mass(C)sI 228.1 grams/m\S\2 CO(Teich) 2.8 l/min CI(Teich) 1.6 l/min/m\S\2 SV(Teich) 49.1 ml SI(Teich) 29.2 ml/m\S\2 CO(cubed) 3.0 l/min CI(cubed) 1.8 l/min/m\S\2 SV(cubed) 52.7 ml SI(cubed) 31.3 ml/m\S\2 ACS 1.4 cm LA dimension 5.1 cm asc Aorta Diam 3.5 cm LVOT diam 2.1 cm LVOT area 3.6 cm\S\2 LVAd ap4 31.5 cm\S\2 LVLd ap4 8.3 cm EDV(MOD-sp4) 98.6 ml LVAs ap4 16.5 cm\S\2 LVLs ap4 6.5 cm ESV(MOD-sp4) 34.5 ml EF(MOD-sp4) 65.0 % LVAd ap2 29.6 cm\S\2 LVLd ap2 7.7 cm EDV(MOD-sp2) 97.0 ml LVAs ap2 16.5 cm\S\2 LVLs ap2 6.6 cm ESV(MOD-sp2) 35.2 ml EF(MOD-sp2) 63.7 % CO(MOD-sp4) 3.6 l/min CI(MOD-sp4) 2.1 l/min/m\S\2 SV(MOD-sp4) 64.1 ml SI(MOD-sp4) 38.1 ml/m\S\2 CO(MOD-sp2) 3.5 l/min CI(MOD-sp2) 2.1 l/min/m\S\2 SV(MOD-sp2) 61.8 ml SI(MOD-sp2) 36.7 ml/m\S\2 Doppler Measurements and Calculations MV E max julia 59.7 cm/sec MV A max julia 100.4 cm/sec MV E/A 0.59 MV dec time 0.32 sec Ao V2 max 198.2 cm/sec Ao max PG 15.7 mmHg Ao max PG (full) 10.3 mmHg YOLI(V,A) 2.1 cm\S\2 YOLI(V,D) 2.1 cm\S\2 AI max julia 348.2 cm/sec AI max PG 48.5 mmHg AI dec slope 233.6 cm/sec\S\2 AI P1/2t 436.5 msec LV V1 max PG 5.4 mmHg LV V1 max 116.4 cm/sec MR max julia 346.4 cm/sec MR max PG 48.0 mmHg PA V2 max 63.1 cm/sec PA max PG 1.6 mmHg PI end-d julia 139.1 cm/sec TR max julia 288.8 cm/sec
--- NOTE | 2016-12-27 12:07 | Neurology Consultation ---
Neurology Consultation Date of Consultation: Dec 27, 2016. Attending Physician: Colin Weller MD Primary Care Physician: Gene Crawford M.D. Reason for Consultation: Consultation for bilateral leg weakness History of Present Illness Source: patient, clinic records, hospital records This is 86-year-old male who presents with complaints of worsening leg weakness. While the initial admitting notes suggested that third benefit and increase since , today the patient has a difficult time giving a time course for increased weakness. It appears that there may have been some acute decompensation in the past few days but is slowly getting worse over the last several months. He reports that it does feel consistent with his slow gait dysfunction and decline related to Parkinson's. Patient does follow in neurology clinic with Dr. Breen for parkinsonism versus atypical Parkinson's disease. Upon review Dr. Breen's notes it appears the patient hasn't not have typical idiopathic Parkinson's features. He has only had a modest response to Sinemet. He said his symptoms for approximately 10 years which have included bradykinesia, showed stability, mild resting tremor, and REM sleep disorder. Also has some cognitive deficits consistent with mild cognitive impairment versus mild dementia. When seen last in clinic in November there is some concern that the patient was not taking medication as initially prescribed. His Sinemet was increased to 2 tabs 3 times a day. The patient denies any increased dizziness or side effects from going up on medication. He continues to take Azilect. It appears that in the past patient was tried on Requip with concerns for possible dizziness side effects. Labs this admission were reviewed. CBC unremarkable. UA unremarkable. Mag within normal limits. TSH within normal limits. Mildly increased troponin. Creatinine of 2.1. CT of the head is unremarkable. Patient denies any significant back pain or radiculopathy type symptoms. He denies any new numbness. Denies any weakness of the upper extremities. He does admit to frequent falls. MRI of the brain report and images from September 2016 were reviewed by myself. The patient has mild diffuse atrophy and moderate T2 hyperintensities in the subcortical white matter consistent with small vessel ischemic disease. Past Medical/Surgical History Medical Problems: (1) Chronic kidney disease (CKD) Status: Acute (2) Elevated troponin Status: Acute (3) Epigastric abdominal pain Status: Acute Cc daily, hypertension, parkinsonism, CAD status post CABG, overactive bladder, musical tinnitus Family History Family history noted to have hypertension, CAD, diabetes Social History Patient typically needs an assist device for walking such as a cane or walker Smoking Status: Never smoker Smokeless Tobacco Use: No Alcohol Use: occasionally (wine 1drink per week) Drug Use: none Marital Status: Housing Status: lives with significant other Occupation Status: retired Allergies Coded Allergies: Alfuzosin (Unverified Allergy, Unknown, DIZZY, 12/26/16) Lactose Intolerance (GI) (Unverified Allergy, Unknown, diarrhea with milk products, 12/26/16) Current Inpatient Medications Current Inpatient Medications Medications (Trade) Dose Ordered Sig/Janet Route Start Time Stop Time Status Last Admin Dose Admin Hydralazine HCl (HydrALAZINE INJ) 10 mg Q8H PRN IV. 12/26/16 15:15 01/25/17 15:14 12/27/16 07:24 10 MG Atorvastatin Calcium (Lipitor Tab) 20 mg QPM PO 12/26/16 21:00 01/25/17 20:59 12/26/16 21:08 20 MG Carbidopa/Levodopa (Sinemet Cr 25/ 100MG Tab) 2 tab TID PO 12/26/16 21:00 01/25/17 20:59 12/27/16 08:49 2 TAB Clopidogrel Bisulfate (plAVix TAB) 75 mg DAILY PO 12/27/16 09:00 01/26/17 08:59 12/27/16 08:50 75 MG Metoprolol Tartrate (Lopressor Tab) 12.5 mg BID PO 12/26/16 21:00 01/25/17 20:59 12/26/16 21:08 12.5 MG Tolterodine Tartrate (Detrol Tab) 2 mg BID PO 12/26/16 21:00 01/25/17 20:59 12/27/16 08:50 2 MG Travoprost (Travatan Z) 1 drops QAM OP 12/27/16 09:00 01/26/17 08:59 12/27/16 08:51 1 DROPS Rasagiline (Azilect) 1 mg DAILY PO 12/27/16 09:00 12/28/16 10:00 12/27/16 08:49 1 MG Miscellaneous Information (Order Awaiting Action) 1 ea QS N/A 12/26/16 18:00 01/25/17 17:59 Miscellaneous Information (Pharmacist Discharge Med Rec Consult) 1 ea UD PRN N/A 12/26/16 15:45 01/25/17 15:44 Heparin Sodium (Porcine) (Heparin Sq 5000 Unit/0.5ml) 5,000 unit Q12 SQ 12/26/16 21:00 01/25/17 20:59 12/27/16 09:04 5,000 UNIT Acetaminophen (Tylenol Tab) 650 mg Q4H PRN PO 12/26/16 15:45 01/25/17 15:44 Losartan Potassium (coZAAR TAB) 100 mg QAM PO 12/27/16 09:00 01/26/17 08:59 12/27/16 08:50 100 MG Review of Systems Noted for urinary frequency, cognitive changes in word finding, and musical tinnitus. Otherwise complete review systems otherwise negative except for the noted in history of present illness Physical Exam Vital Signs (Past 24 Hrs): Date Time Temp Pulse Resp B/P (MAP) Pulse Ox O2 Delivery O2 Flow Rate FiO2 12/27/16 08:53 55 160/62 (94) 12/27/16 08:00 98 Room Air 12/27/16 07:20 36.6 51 20 184/74 (110) 98 Room Air 12/27/16 04:00 Room Air 12/27/16 03:55 36.8 52 18 157/59 (91) 96 Room Air 12/27/16 00:00 Room Air 12/27/16 00:00 95 Room Air 12/26/16 23:39 37.3 63 18 156/66 (96) 97 Room Air 12/26/16 20:57 119/51 (73) 12/26/16 20:00 37.1 72 18 210/90 97 Room Air 12/26/16 19:48 203/79 (120) 12/26/16 18:45 37.1 72 18 210/90 (130) 97 Room Air 12/26/16 18:23 69 15 185/79 99 12/26/16 17:56 69 13 207/79 99 Room Air 12/26/16 17:28 64 202/85 12/26/16 17:00 62 19 197/90 96 Room Air 12/26/16 16:18 69 12/26/16 16:00 67 20 209/91 96 Room Air 12/26/16 14:53 65 18 194/84 97 Room Air 12/26/16 13:47 57 20 198/73 99 Room Air 12/26/16 12:13 97 Room Air 12/26/16 12:08 50 Gen.: Patient is alert and lying in bed, in no acute distress. HEENT: Normocephalic /atraumatic, no scleral icterus Heart: Regular rate and rhythm Extremities: No gross deformities or rashes noted Neurological examination: Mental status: Patient is alert and oriented x3. Attention and concentration normal for the situation. Somewhat limited history and fund of knowledge Speech is fluent without any dysarthria or aphasia noted. Speech is slow. Armenian is not his first language and there may be some language barrier. Cranial nerve: Funduscopic examination was unremarkable. No papilledema. Pupils equally round and reactive to light. Extraocular muscles intact without nystagmus. No facial asymmetry noted. Facial sensation intact. Tongue is midline. Good palatal elevation. Good shoulder shrug bilaterally. Hearing grossly intact to voice. Strength: 5/5 both proximal and distally in all extremities. There is no arm drift. Tone is mildly increased bilaterally Sensation: Grossly intact to light touch in all extremities. Deep tendon reflexes: +1 in bilateral biceps, brachioradialis and patellar. Coordination: Patient had good finger to nose without dysmetria Patient was noted to have masked face. Bradykinesia movements. Slow rapid hand movements bilaterally. Patient had extreme difficulty standing from a seated position requiring the use of his arms and hands. Gait was extremely unsteady. No specific ataxia. Stooped posture. Small steps. Shuffled gait. He took 4-5 steps to turn around and easily would lose his balance when turning. Laboratory Results Past 24 Hours: 12/27/16 05:52 Red Blood Count 3.39, Mean Corpuscular Volume 88.2, Mean Corpuscular Hemoglobin 28.0, Mean Corpuscular Hemoglobin Concent 31.8, Mean Platelet Volume 10.6, Neutrophils (%) (Auto) 68.1, Lymphocytes (%) (Auto) 22.8, Monocytes (%) (Auto) 7.3, Eosinophils (%) (Auto) 1.4, Basophils (%) (Auto) 0.2, Neutrophils # (Auto) 2.89, Lymphocytes # (Auto) 0.97, Monocytes # (Auto) 0.31, Eosinophils # (Auto) 0.06, Basophils # (Auto) 0.01 12/27/16 05:52 Test 12/26/16 12:30 12/26/16 12:53 12/27/16 05:52 Prothrombin Time 10.8 SECONDS (9.0-12.0) Prothromb Time International Ratio 1.0 (0.9-1.1) Estimated Average Glucose 131 mg/dl Hemoglobin A1c 6.2 % (4.5-5.6) Lactic Acid Level 1.5 mmol/L (0.4-2.0) Magnesium Level 2.3 mg/dl (1.8-2.4) Total Bilirubin 0.5 mg/dl (0.2-1) Aspartate Amino Transf (AST/SGOT) 17 U/L (15-37) Alanine Aminotransferase (ALT/SGPT) 10 U/L (12-78) Alkaline Phosphatase 61 U/L (45-117) Total Protein 6.2 gm/dl (6.4-8.2) Albumin 3.5 gm/dl (3.4-5.0) Globulin 2.7 gm/dl (2.5-4.0) Albumin/Globulin Ratio 1.3 (0.9-2) Thyroid Stimulating Hormone (TSH) 0.749 uIu/ml (0.300-4.500) Urine Color YELLOW Urine Appearance CLEAR (CLEAR) Urine pH 6.0 (4.5-7.5) Urine Specific [place] 1.015 (1.000-1.030) Urine Protein 1+ (NEG) Urine Glucose (UA) NEG (NEG) Urine Ketones NEG (NEG) Urine Occult Blood NEG (NEG) Urine Nitrite NEG (NEG) Urine Bilirubin NEG (NEG) Urine Urobilinogen NEG (NEG) Urine Leukocyte Esterase NEG (NEG) Urine WBC (Auto) 0 /hpf (0-5) Urine RBC (Auto) 0-4 /hpf (0-4) Urine Hyaline Casts (Auto) 0 /lpf (0-5) Urine Epithelial Cells (Auto) 0-5 /lpf (0-5) Urine Bacteria (Auto) NEG (NEG) White Blood Count 4.25 K/uL (4.8-10.8) Red Blood Count 3.39 M/uL (4.7-6.1) Hemoglobin 9.5 g/dL (14.0-18.0) Hematocrit 29.9 % (42-52) Mean Corpuscular Volume 88.2 fL (80-100) Mean Corpuscular Hemoglobin 28.0 pg (25-34) Mean Corpuscular Hemoglobin Concent 31.8 g/dl (32-36) Platelet Count 166 K/uL (130-400) Mean Platelet Volume 10.6 fL (7.4-10.4) Neutrophils (%) (Auto) 68.1 % Lymphocytes (%) (Auto) 22.8 % Monocytes (%) (Auto) 7.3 % Eosinophils (%) (Auto) 1.4 % Basophils (%) (Auto) 0.2 % Neutrophils # (Auto) 2.89 K/uL (1.4-6.5) Lymphocytes # (Auto) 0.97 K/uL (1.2-3.4) Monocytes # (Auto) 0.31 K/uL (0.11-0.59) Eosinophils # (Auto) 0.06 K/uL (0-0.5) Basophils # (Auto) 0.01 K/uL (0-0.2) RDW Standard Deviation 46.7 fL (36.4-46.3) RDW Coefficient of Variation 14.5 % (11.5-14.5) Immature Granulocyte % (Auto) 0.2 % Immature Granulocyte # (Auto) 0.01 K/uL (0.00-0.02) Anion Gap 6.0 mmol/L (3-11) Est Creatinine Clear Calc Drug Dose 20.6 ml/min Estimated GFR () 32.1 Estimated GFR (Non- 27.7 BUN/Creatinine Ratio 23.7 (10-20) Calcium Level 8.5 mg/dl (8.5-10.1) Total Creatine Kinase 132 U/L (39-308) Creatine Kinase MB 2.3 ng/ml (0.5-3.6) Creatine Kinase MB Ratio 1.7 (0-3.0) Troponin I 0.218 ng/ml (0-0.045) Triglycerides Level 66 mg/dl (0-150) Cholesterol Level 95 mg/dl (0-200) HDL Cholesterol 53 mg/dl LDL Cholesterol, Calculated 29 mg/dl VLDL Cholesterol, Calculated 13 mg/dl Cholesterol/HDL Ratio 1.8 Imaging As noted above in history of present illness Impression This is an 86-year-old male with ambulatory dysfunction secondary to parkinsonism versus atypical Parkinson's disease. Per outpatient clinic notes patient has only had a modest response to Sinemet. Has not tolerated Requip in the past. Patient does not have any focal weakness consistent with last stroke or spinal lesion. Plan I think it is reasonable to get a follow-up MRI of the brain without contrast to make sure that there is no acute lesions since initially he presented with complaints of sudden weakness. More than likely I think his ambulatory dysfunction has been long-standing and slowly progressive secondary to his parkinsonism. Is not clear whether the patient is always taking his Parkinson's medications as prescribed, although today he does report good compliance with medications without any severe side effects. I have increased his Sinemet to 3 tabs 3 times a day to see if this would improve his motor symptoms. Sinemet should be taken on an empty stomach at least 30 minutes before meals. Recommend dosing time first thing when he gets up in the morning, 11am, and 4 PM. Continue Azilect without change. If the patient is not able to tolerate increased dose of Sinemet due to either GI upset or dizziness, can go back down to 2 tabs 3 times a day. Could consider amantadine in the future. Highly recommend PT/OT and speech evaluation. Patient will likely need inpatient physical therapy. Patient would likely be a good candidate for [facility] Parkinson's program. Follow-up with Dr. Breen in neurology clinic in May as previously scheduled or sooner if needed. Think you for allowing me to participate in this patient's care. If there is any questions or concerns, feel free to call/page me.
--- NOTE | 2016-12-27 14:47 | Family Medicine Progress Note ---
Progress Note Date of Service Dec 27, 2016. Subjective Pt evaluation today including: conversation w/ patient, physical exam, chart review, lab review, review of studies, review of inpatient medication list Pain: Denies having any pain PO Intake: Tolerating Voiding: no voiding problems Mr. Hodges reports mild dizziness this AM but denies having any pain and reports improvement in ambulation and weakness in his legs. He denies having any cp, sob , abdominal pain, n/v, or dysuria. Constitutional: No fever, No chills Respiratory: No shortness of breath Cardiovascular: No chest pain Abdomen: No pain, No nausea, No vomiting Musculoskeletal: No joint pain Male : No dysuria Neurologic: + weakness (bilateral LEs) Medications Current Inpatient Medications Medications (Trade) Dose Ordered Sig/Janet Route Start Time Stop Time Status Last Admin Dose Admin Hydralazine HCl (HydrALAZINE INJ) 10 mg Q8H PRN IV. 12/26/16 15:15 01/25/17 15:14 12/27/16 07:24 10 MG Atorvastatin Calcium (Lipitor Tab) 20 mg QPM PO 12/26/16 21:00 01/25/17 20:59 12/26/16 21:08 20 MG Clopidogrel Bisulfate (plAVix TAB) 75 mg DAILY PO 12/27/16 09:00 01/26/17 08:59 12/27/16 08:50 75 MG Metoprolol Tartrate (Lopressor Tab) 12.5 mg BID PO 12/26/16 21:00 01/25/17 20:59 12/26/16 21:08 12.5 MG Tolterodine Tartrate (Detrol Tab) 2 mg BID PO 12/26/16 21:00 01/25/17 20:59 12/27/16 08:50 2 MG Travoprost (Travatan Z) 1 drops QAM OP 12/27/16 09:00 01/26/17 08:59 12/27/16 08:51 1 DROPS Rasagiline (Azilect) 1 mg DAILY PO 12/27/16 09:00 12/28/16 10:00 12/27/16 08:49 1 MG Miscellaneous Information (Order Awaiting Action) 1 ea QS N/A 12/26/16 18:00 01/25/17 17:59 Miscellaneous Information (Pharmacist Discharge Med Rec Consult) 1 ea UD PRN N/A 12/26/16 15:45 01/25/17 15:44 Heparin Sodium (Porcine) (Heparin Sq 5000 Unit/0.5ml) 5,000 unit Q12 SQ 12/26/16 21:00 01/25/17 20:59 12/27/16 09:04 5,000 UNIT Acetaminophen (Tylenol Tab) 650 mg Q4H PRN PO 12/26/16 15:45 01/25/17 15:44 Losartan Potassium (coZAAR TAB) 100 mg QAM PO 12/27/16 09:00 01/26/17 08:59 12/27/16 08:50 100 MG Carbidopa/Levodopa (Sinemet 25/ 100MG Tab) 3 tab TID@0700,1100,1600 PO 12/27/16 16:00 01/26/17 15:59 Objective Vital Signs Date Time Temp Pulse Resp B/P (MAP) Pulse Ox O2 Delivery O2 Flow Rate FiO2 12/27/16 11:00 36.9 59 18 163/65 (97) 98 Nasal Cannula 12/27/16 08:53 55 160/62 (94) 12/27/16 08:00 98 Room Air 12/27/16 07:20 36.6 51 20 184/74 (110) 98 Room Air 12/27/16 04:00 Room Air 12/27/16 03:55 36.8 52 18 157/59 (91) 96 Room Air 12/27/16 00:00 Room Air 12/27/16 00:00 95 Room Air 12/26/16 23:39 37.3 63 18 156/66 (96) 97 Room Air 12/26/16 20:57 119/51 (73) 12/26/16 20:00 37.1 72 18 210/90 97 Room Air 12/26/16 19:48 203/79 (120) 12/26/16 18:45 37.1 72 18 210/90 (130) 97 Room Air 12/26/16 18:23 69 15 185/79 99 12/26/16 17:56 69 13 207/79 99 Room Air 12/26/16 17:28 64 202/85 12/26/16 17:00 62 19 197/90 96 Room Air 12/26/16 16:18 69 12/26/16 16:00 67 20 209/91 96 Room Air Physical Exam General Appearance: no apparent distress Eyes: normal inspection Respiratory/Chest: lungs clear, normal breath sounds, no respiratory distress Cardiovascular: regular rate, rhythm, no edema, + systolic murmur (3/6 systolic ejection murmur over LLSB), + normal peripheral pulses (2+ bilateral DP and PTP) Abdomen: normal bowel sounds, non tender, soft Extremities: non-tender, no pedal edema Neurologic/Psychiatric: alert, normal mood/affect, oriented x 3 Laboratory Results Last Resulted 12/27/16 05:52 Red Blood Count 3.39, Mean Corpuscular Volume 88.2, Mean Corpuscular Hemoglobin 28.0, Mean Corpuscular Hemoglobin Concent 31.8, Mean Platelet Volume 10.6, Neutrophils (%) (Auto) 68.1, Lymphocytes (%) (Auto) 22.8, Monocytes (%) (Auto) 7.3, Eosinophils (%) (Auto) 1.4, Basophils (%) (Auto) 0.2, Neutrophils # (Auto) 2.89, Lymphocytes # (Auto) 0.97, Monocytes # (Auto) 0.31, Eosinophils # (Auto) 0.06, Basophils # (Auto) 0.01 Last Resulted 12/27/16 05:52 Past 24 Hours Test 12/26/16 21:47 12/27/16 05:52 Range/Units Creatine Kinase MB 3.0 2.3 0.5-3.6 ng/ml Creatine Kinase MB Ratio 1.7 1.7 0-3.0 Total Creatine Kinase 173 132 39-308 U/L Troponin I 0.103 *H 0.218 *H 0-0.045 ng/ml Assessment and Plan Pt is an 86 yo male with a h/o PD, and CAD s/p CABG 2007, CKD, HTN, and chronic constipation who presents with sudden inability to walk with bilateral leg weakness R>L and dizziness x 2 days . Bilateral Leg weakness/Parkinson's disease: no significant deficiency in motor function or strength on exam. Likely secondary to Parkinson's per neurology consult - Acute CVA r/o - - Head CT - negative - F/u on brain MRI - Regular neuro checks - PT/OT/speech therapy consults ordered - Neurology consulted and following pt - Parkinson disease: chronic - Neurology consulted and increased home Carbidopa-Levodopa 25MG/100MG to 3 tabs TID and continued home Rasagiline Mesylate 1mg Dizziness and hx of CAD s/p x4 vessel CABG in 2008: - Cardiology consulted - ECHO ordered - results within normal limits for age - Telemetry monitoring for arrhythmia - Continue home clopidogrel 75mg, atorvastatin 20mg, and metoprolol Hypertension: 200/100s on presentation. Latest BP: 163/65 - until stroke ruled out, maintain BP above 150/80 to prevent induced ischemia but will bring down somewhat with IV hydralazine - Continue home losartan 100mg, hold HCTZ for now CKD stage 3-4: BUN improved to 50 from 56 on 12/26 and Cr improved to 2.10 from 2.4 on 12/26 - relatively close to established baseline -Follow PRP -Avoid nephrotoxins -Renally dose medications DVT Prophylaxis-heparin Disposition-DO NOT RESUSCITATE/DO NOT INTUBATE Resident Involvement: Resident Care Provided Care Provided: Adult [facility] Medicine History Resident Physician Supervision Note: I was present with Dr. Meyer during the history and exam. I discussed the case with the resident and agree with the findings and plan as documented in the note. Any exceptions or clarifications are listed here. Pt resting in bed with gradual improvement in dizziness which he reports has been episodic for some time but has become worse of late. He states that he feels otherwise well and denies chest pain, SOB, palpitations, nausea, paresthesias, weakness, PICKENS. Constitutional: denies: chills, fever, weakness Respiratory: negative: cough, short of breath, wheezing Cardiovascular: denies chest pain, denies palpitations, denies syncope Skin: negative: change in color, change in hair/nails, lesions Neurological/Psych: negative: headache, numbness, paresthesia, weakness General Appearance: no apparent distress, cachetic Respiratory: chest non-tender, lungs clear, normal breath sounds, no respiratory distress Cardiovascular: normal peripheral pulses, regular rate, rhythm, systolic murmur (3/6 DANNIELLE LLSB) Gastrointestinal: normal bowel sounds, non tender, soft, no organomegaly Assessment/Plan 86 y/o male h/o CAD s/p CABG in 2007, HTN, CKD of unknown baseline, HTN, chronic constipation presenting with new onset dizziness episode x 2 days Dizziness - neurology consulted and input appreciated, MRI w/o acute pathology - increased synemet and contninue rasagiline. PT/OT consulted Parkinson's - regimen as above h/o CAD s/p CABG - cardiology consulted and input appreciated - echocardiogram ordered & results reviewed, tele. Continue plavix, statin, toprol CKD stage IV - at baseline - trend BMP, avoid nephrotoxic medications DVT PPX - heparin
--- NOTE | 2016-12-27 15:35 | DIAGNOSTIC IMAGING REPORT ---
MRI OF THE BRAIN WITHOUT CONTRAST CLINICAL HISTORY: Bilateral leg weakness. Evaluate for cerebrovascular accident. COMPARISON STUDY: MRI of the brain July 27, [address] December 26, 2016. TECHNIQUE: Utilizing a 1.5 Violet magnet and dedicated coil, multiplanar, multiecho imaging of the brain was performed without IV contrast. FINDINGS: There are no areas of restricted diffusion. No acute intracranial hemorrhage, midline shift or mass effect is present. Ventricular system is stable. Basilar cisterns are patent. There are no extra-axial collections. Marked atrophy is again noted. Numerous white matter T2 hyperintense foci are similar to MRI of July 17, 2014 and suggests small vessel disease. No intracranial masses are identified on this unenhanced exam. Calvarial signal is normal. Orbits are unremarkable. There is no fluid within the mastoid air cells or the sinuses. IMPRESSION: 1. No acute intracranial findings. 2. No change since MRI of July 17, 2014. Marked atrophy and moderate small vessel disease. Electronically signed by: Alex Kovacs M.D. 12/27/2016 3:34 PM Dictated Date/Time: 12/27/2016 3:30 PM
[2016-12-27] MEDS ORDERED: CARBIDOPA/LEVODOPA 25/100MG TAB PO SCH (16:00)
[2016-12-27] MEDS: CARBIDOPA/LEVODOPA 25/100MG TAB PO SCH (16:42)
[2016-12-27] MEDS: ATORVASTATIN 20 MG TAB PO SCH (20:40)
[2016-12-28] VITALS (9 sets, daily range): BP systolic 109–208; BP diastolic 55–74; PULSE 49–64; TEMP 36.1–37; O2SAT 95–99
[2016-12-28] MEDS: HydrALAZINE HCL 20 MG/ML VIAL IV. PRN (00:06)
[2016-12-28] MEDS ORDERED: HydrALAZINE HCL 20 MG/ML VIAL IV. STA (03:26)
[2016-12-28] MEDS ORDERED: NURSING VERBAL MED ORDER ONE (03:30)
[2016-12-28] MEDS: CARBIDOPA/LEVODOPA 25/100MG TAB PO SCH ×3 (06:30→16:36)
[2016-12-28 06:40] LABS: BASO % 0.2 %; BASO ABS # 0.01 K/uL (0-0.2); COMPLETE YES; EOS % 1.6 %; HEMATOCRIT 37.7 % (42-52); IG% 0.2 %; LYMPH % 18.7 %; LYMPH ABS # 1.16 K/uL (1.2-3.4); MEAN CELL VOLUME 88.9 fL (80-100); MEAN CORPUSCULAR HEMOGLOBIN 27.8 pg (25-34); MEAN CORPUSCULAR HGB CONC 31.3 g/dl (32-36); MEAN PLATELET VOLUME 11.3 fL (7.4-10.4); MONO % 7.4 %; NEUT % 71.9 %; PLATELET COUNT 170 K/uL (130-400); RED BLOOD COUNT 4.24 M/uL (4.7-6.1)
[2016-12-28 07:10] LABS: BUN/CREATININE RATIO 23.3 (10-20); CALCIUM 8.9 mg/dl (8.5-10.1)
--- NOTE | 2016-12-28 07:20 | CARDIOLOGY CONSULTATION ---
DATE OF CONSULTATION: 12/27/2016 PERTINENT HISTORY: Mr. Hodges is an 86-year-old white male admitted yesterday with neurologic complaints. His troponin I level is elevated and therefore, this consultation was ordered. Of note, the patient typically follows with Dr. Dockery in the outpatient arena. The patient was in his usual state of health until approximately 36 hours prior to presentation. He developed the sudden inability to ambulate. He was also complaining of fatigue and therefore, was brought to the Emergency Room for further evaluation. Of note, the patient does have a long history of progressive Parkinson's disease. As part of his evaluation, troponin I levels have been trended. They have increased to maximum of 0.218. At no time the patient experienced chest discomfort. He claims to perform daily exercise at home and does not experience exertional angina pectoris or limiting dyspnea. He further denies syncope, presyncope, PND, orthopnea, palpitations, lower extremity edema, and claudication. The patient's cardiac history began back in October of 2007 when a cardiac catheterization revealed significant 3-vessel coronary artery disease. The patient underwent a cardiac catheterization on 06/2007. He was then transferred to [facility] and underwent a 4-vessel bypass. He had an CARLTON to the LAD, saphenous vein graft to a diagonal branch, a saphenous vein graft to an obtuse marginal branch, and a saphenous vein graft to the posterior descending artery. The patient has done well from a cardiac perspective since that time. He was seen by Dr. Dockery on the of this year. He was doing well at that time from a cardiac perspective. Currently, the patient is resting comfortably in bed without complaints. PAST MEDICAL HISTORY: 1. Coronary artery disease. 2. Coronary artery bypass grafting - 4 vessel - October 2007 -- see above. 3. Hypertension. 4. Hypercholesterolemia. 5. Chronic renal failure. 6. Parkinson's disease. 7. Cholecystectomy. 8. Right inguinal hernia repair. 9. Chronic constipation. 10. Glaucoma. 11. BPH. 12. Iron deficiency anemia. 13. Chronic venous insufficiency. MEDICATIONS: 1. Metoprolol tartrate 12.5 mg b.i.d. 2. Losartan 100 mg daily. 3. Lipitor 20 mg at bedtime. 4. Plavix 75 mg per day. 5. Heparin 5000 units subQ q. 12 hours. 6. Detrol 2 mg b.i.d. 7. Sinemet 25/100 three tablets t.i.d. 8. Azilect 1 mg daily. 9. Travatan drops daily. ALLERGIES: ALFUZOSIN. SOCIAL HISTORY: The patient is and lives with his . Does not use tobacco. Has 1 alcoholic drink per week. FAMILY HISTORY: Noncontributory realizing his advanced age. REVIEW OF SYSTEMS: A 10-point review of systems was negative except for that described above. PHYSICAL EXAMINATION: GENERAL: This is a thin, elderly male seated at the bedside without complaints. VITAL SIGNS: Blood pressure is 160/65 with a regular pulse of 60. Respiratory rate is 18. The patient is afebrile at 36.9 degrees Celsius. Saturations are 98% on room air. HEENT: Negative. NECK: Supple with full carotid upstrokes. No carotid bruits. Jugular venous pressure is flat at 90 degrees. There is no thyromegaly. CARDIOVASCULAR: Reveals a regular rhythm with an occasional extrasystole. There is a 3/6 apical holosystolic murmur along with a 1/6 diastolic murmur heard along the left sternal border. No S3 or S4. LUNGS: Clear without rales, rhonchi, or wheeze. ABDOMEN: Soft and nontender without bruits. EXTREMITIES: Reveal intact radial artery pulses bilaterally. There is no peripheral edema. Hyperpigmentation changes noted in the lower extremities. LABORATORY DATA: CBC notes hemoglobin of 9.5, hematocrit 29.9, white count 4.2, and platelet count 106,000. Electrolytes note a sodium of 144, potassium 3.8, chloride 111, bicarbonate 27, BUN 50, creatinine 2.1, and glucose 98. Magnesium level normal at 8.5. Initial troponin was 0.048 with followup values of 0.103 and 0.218. CKs were normal at 173 and 132 with MB fractions of 3.0 and 2.3 respectively. TSH is normal at 0.749. INR is normal at 1.0. Initial EKG noted sinus bradycardia with left ventricular hypertrophy and repolarization changes. QT interval is prolonged. Second tracing noted a PVC, but was otherwise unchanged. Both tracings were similar to a tracing done on 08/04/2015. Echocardiogram done today notes normal left ventricular systolic function without wall motion abnormalities. An estimated left ventricular ejection fraction is 60%-65%. There is evidence of moderate left ventricular hypertrophy and diastolic dysfunction. There is mild aortic insufficiency and mild to moderate mitral regurgitation with a posteriorly directed jet. IMPRESSION: Mr. Hodges was admitted with neurologic complaints, but has a mildly elevated troponin. Suspect that this elevated cardiac marker is related to his significant hypertension at the time of presentation (210/100) in the face of his moderate left ventricular hypertrophy. This likely represents subendocardial ischemia or supply demand mismatch. The patient also has evidence of renal insufficiency, which occasionally causes mildly elevated troponin chronically. As the patient has no cardiac symptoms whatsoever, no need for further cardiac testing at this time. The patient's mitral regurgitation and aortic insufficiency have been present on prior echocardiographic studies. PLAN: 1. Continue usual cardiac medications. 2. Agree with trending troponins. 3. No further cardiac testing indicated. 4. Further recommendations depending on his clinical course.
--- NOTE | 2016-12-28 07:56 | Family Medicine Progress Note ---
Progress Note Date of Service Dec 28, 2016. Subjective Pt evaluation today including: conversation w/ patient, physical exam, chart review, lab review, review of studies, review of inpatient medication list Pain: denies having pain PO Intake: tolerating Voiding: no voiding problems Mr. Hodges denies having any dizziness this AM. He reports improvement in leg weakness. He has been able to ambulate without dizziness, falls or LOC to the bathroom with nursing assistance. Constitutional: + weakness, No fever, No chills Respiratory: No shortness of breath Cardiovascular: No chest pain, No edema, No palpitations Abdomen: + diarrhea, No pain, No nausea, No vomiting Musculoskeletal: + problem reported (b/l leg weakness) Medications Current Inpatient Medications Medications (Trade) Dose Ordered Sig/Janet Route Start Time Stop Time Status Last Admin Dose Admin Hydralazine HCl (HydrALAZINE INJ) 10 mg Q8H PRN IV. 12/26/16 15:15 01/25/17 15:14 12/28/16 00:06 10 MG Atorvastatin Calcium (Lipitor Tab) 20 mg QPM PO 12/26/16 21:00 01/25/17 20:59 12/27/16 20:40 20 MG Clopidogrel Bisulfate (plAVix TAB) 75 mg DAILY PO 12/27/16 09:00 01/26/17 08:59 12/28/16 08:54 75 MG Metoprolol Tartrate (Lopressor Tab) 12.5 mg BID PO 12/26/16 21:00 01/25/17 20:59 12/28/16 08:55 12.5 MG Tolterodine Tartrate (Detrol Tab) 2 mg BID PO 12/26/16 21:00 01/25/17 20:59 12/28/16 08:55 2 MG Travoprost (Travatan Z) 1 drops QAM OP 12/27/16 09:00 01/26/17 08:59 12/28/16 08:57 1 DROPS Miscellaneous Information (Order Awaiting Action) 1 ea QS N/A 12/26/16 18:00 01/25/17 17:59 Heparin Sodium (Porcine) (Heparin Sq 5000 Unit/0.5ml) 5,000 unit Q12 SQ 12/26/16 21:00 01/25/17 20:59 12/28/16 10:02 5,000 UNIT Acetaminophen (Tylenol Tab) 650 mg Q4H PRN PO 12/26/16 15:45 01/25/17 15:44 Losartan Potassium (coZAAR TAB) 100 mg QAM PO 12/27/16 09:00 01/26/17 08:59 12/28/16 08:54 100 MG Carbidopa/Levodopa (Sinemet 25/ 100MG Tab) 3 tab TID@0700,1100,1600 PO 12/27/16 16:00 01/26/17 15:59 12/28/16 10:54 3 TAB Objective Vital Signs Date Time Temp Pulse Resp B/P (MAP) Pulse Ox O2 Delivery O2 Flow Rate FiO2 12/28/16 12:21 36.1 49 18 118/55 (76) 99 Room Air 12/28/16 12:10 Room Air 12/28/16 12:08 36.3 52 16 109/55 (73) 95 Room Air 12/28/16 09:07 Room Air 12/28/16 04:02 37.0 64 18 151/65 (93) 99 Room Air 12/28/16 04:00 Room Air 12/28/16 01:41 60 204/70 (114) 12/28/16 01:06 57 189/73 (111) 12/28/16 00:01 54 208/74 (118) 202/70 (114) 12/28/16 00:00 Room Air 12/27/16 23:16 36.3 52 18 182/70 (107) 99 Room Air 12/27/16 20:00 Room Air 12/27/16 19:53 36.4 54 18 174/72 (106) 96 Room Air 12/27/16 19:07 46 142/71 (94) Room Air 12/27/16 16:02 36.4 53 20 196/64 (108) 96 Room Air 12/27/16 16:00 Room Air Physical Exam General Appearance: no apparent distress, + thin Eyes: normal inspection Respiratory/Chest: lungs clear, normal breath sounds, no respiratory distress Cardiovascular: regular rate, rhythm, no edema, no JVD, + systolic murmur (3/6 systolic ejection murmur over LLSB) Abdomen: normal bowel sounds, non tender, soft Extremities: non-tender, no pedal edema, normal capillary refill Neurologic/Psychiatric: alert, normal mood/affect, oriented x 3 Laboratory Results Last Resulted 12/28/16 06:01 Red Blood Count 4.24, Mean Corpuscular Volume 88.9, Mean Corpuscular Hemoglobin 27.8, Mean Corpuscular Hemoglobin Concent 31.3, Mean Platelet Volume 11.3, Neutrophils (%) (Auto) 71.9, Lymphocytes (%) (Auto) 18.7, Monocytes (%) (Auto) 7.4, Eosinophils (%) (Auto) 1.6, Basophils (%) (Auto) 0.2, Neutrophils # (Auto) 4.46, Lymphocytes # (Auto) 1.16, Monocytes # (Auto) 0.46, Eosinophils # (Auto) 0.10, Basophils # (Auto) 0.01 Last Resulted 12/28/16 06:01 Assessment and Plan Pt is an 86 yo male with a h/o PD, and CAD s/p CABG 2007, CKD, HTN, and chronic constipation who presents with sudden inability to walk with bilateral leg weakness R>L and dizziness x 2 days . Bilateral Leg weakness/Parkinson's disease: no significant deficiency in motor function or strength on exam. Likely secondary to Parkinson's per neurology consult - Acute CVA r/o - - Head CT - negative - Brain MRI - negative - Regular neuro checks - Neurology consulted - believe slowly progressive and related to PD - PT/OT/speech therapy consulted -cleared to go home if can provide assistance otherwise to rehab - Parkinson disease: chronic - Neurology consulted and increased home Carbidopa-Levodopa 25MG/100MG to 3 tabs TID and continued home Rasagiline Mesylate 1mg Dizziness and hx of CAD s/p x4 vessel CABG in 2007: - Cardiology consulted - elevated troponin due to elevated BP at presentation which given mod LVH represents subendocardial ischemia/supply demand mismatch - ECHO ordered - results within normal limits for age - Telemetry monitoring for arrhythmia - Continue home clopidogrel 75mg, atorvastatin 20mg, and metoprolol Hypertension: 200/100s on presentation. 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 Meyer during the history and exam. I discussed the case with the resident and agree with the findings and plan as documented in the note. Any exceptions or clarifications are listed here. For full attending documentation, please see attestation on discharge summary from this day.
[2016-12-28] MEDS: CLOPIDOGREL BISULFATE 75 MG TAB PO SCH (08:54)
[2016-12-28] MEDS: LOSARTAN POTASSIUM 50 MG TAB PO SCH (08:54)
[2016-12-28] MEDS: TOLTERODINE TARTRATE 2 MG TAB PO SCH (08:55)
[2016-12-28] MEDS: METOPROLOL TARTRATE 25 MG TAB PO SCH (08:55)
[2016-12-28] MEDS: RASAGILINE 0.5 MG TAB PO SCH (08:56)
[2016-12-28] MEDS: TRAVOPROST Z 0.004% OPH SOLN 2.5 ML BTL OP SCH (08:57)
[2016-12-28] MEDS: HEPARIN SOD 5000 UNIT/0.5 ML CARP SQ SCH (10:02)
[2016-12-28] MEDS ORDERED: CARB25TA PO (17:15)
--- NOTE | 2016-12-28 17:28 | Discharge Instructions ---
Discharge Instructions Date of Service Dec 28, 2016. Admission Reason for Admission: Leg Weakness,Bilateral Discharge Discharge Diagnosis / Problem: dizziness; bilateral leg weakness Discharge Goals Goal(s): Decrease discomfort, Improve function Activity Recommendations Activity Limitations: resume your previous activity . Instructions / Follow-Up Instructions / Follow-Up You were admitted for leg weakness and dizziness which improved over the course of your hospital stay. We took pictures of your head and brain (Head CT and brain MRI) which were normal. Neurology also saw you and believed the weakness is from your Parkinson's disease because it has been going on for a while. The neurologists increased your Levidopa/Carbidopa dosage to 3 pills three times a day for which we have given you another prescription. Please refill the new prescription and stop taking the old one. You can continue taking your Rasagiline as well. The physical therapists also saw you and believed you were functioning well but needed some support at home which your is happy to provide. You should follow up with your neurologist. You were also dizzy and because your heart labs were abnormal we had the cardiologists see you. They believed the heart lab abnormality was from your high blood pressure when you came in. They also took pictures of your heart which were normal. The heart doctor/cardiologists want you to continue taking the medications you were taking at home: clopidogrel 75mg, atorvastatin 20mg, and metoprolol and blood pressure medications: Hydrochlorothiazide and Losartan 100mg. Please follow up with your neurologist and cardiology. Please see your family doctor within 1 week for follow up. Current Hospital Diet Patient's current hospital diet: AHA Diet (Heart Healthy) Discharge Diet Recommended Diet: Regular Diet Pending Studies Studies pending at discharge: no Laboratory Results Hemoglobin A1c Test 12/26/16 12:30 Range/Units Estimated Average Glucose 131 mg/dl Hemoglobin A1c 6.2 H 4.5-5.6 % Lipid Panel Test 12/27/16 05:52 Range/Units Triglycerides Level 66 0-150 mg/dl Cholesterol Level 95 0-200 mg/dl HDL Cholesterol 53 mg/dl Cholesterol/HDL Ratio 1.8 LDL Cholesterol, Calculated 29 mg/dl Medical Emergencies . Who to Call and When: Medical Emergencies: If at any time you feel your situation is an emergency, please call 911 immediately. . Non-Emergent Contact Non-Emergency issues call your: Primary Care Provider . Past History Medical & Surgical History: (1) Benign hypertension (2) Inguinal hernia (3) Heart disease (4) Chronic kidney disease (CKD) (5) Parkinson's disease . "Provider Documentation" section prepared by Pattie Meyer. . VTE Core Measure Inpt VTE Proph given/why not?: Unfractionated heparin SQ
--- NOTE | 2016-12-28 17:47 | Discharge Summary ---
Discharge Summary Date of Service Dec 28, 2016. (Pattie Meyer M.D.) Discharge Summary Admission Date: Dec 26, 2016 at 16:14 Discharge Date: Dec 28, 2016 Discharge Disposition: Home Principal Diagnosis: dizziness; bilateral leg weakness Immunizations: Have You Had Influenza Vaccine: N/A History of Tetanus Vaccine?: Yes History of Pneumococcal: Unknown History of Hepatitis B Vaccine: No Consultations: Neurology and Cardiology (Pattie Meyer M.D.) Medication Reconciliation Changed Medications: Carbidopa-Levodopa (Sinemet Cr 25MG/100MG) 1 Tab Tab 3 TAB PO TID for 30 Days, #270 TAB (Changed from: 2 TAB) Continued Medications: Atorvastatin (Lipitor) 20 Mg Tab 20 MG PO QPM, TAB Clopidogrel Bisulfate (Clopidogrel) 75 Mg Tab 1 TAB PO DAILY, #90 Losartan Potassium & Hydrochlo (Hyzaar) 1 Tab Tab 1 TABLET PO QAM 100-25 mg tablet Metoprolol Tartrate (Lopressor) (Lopressor) 25 Mg Tab 12.5 MG PO BID, TAB Rasagiline Mesylate (Azilect) 1 Mg Tab 1 MG PO DAILY, TAB Tolterodine Tartrate (Tolterodine Tartrate) 2 Mg Tab 1 TAB PO BID Travoprost (Travatan Z) 0.004 % En 1 DROPS OP QAM, #1 BTL 5 Refills Discharge Exam See progress note 12/28/16 (Pattie Meyer M.D.) Hospital Course Mr. Hodges was admitted for new onset dizziness and bilateral leg weakness. He had a normal neuro exam and reported improvement in weakness on the day of admission. Head CT and brain MRI were obtained which were compared to older studies and within normal range for patient. Neurology was consulted given his Parkinson's disease diagnosis. Neurology believed his bilateral leg weakness was slowly progressive and related to his PD. Neurology also increased his Carbidopa/Levidopa dosage to 3 tabs TID (previously 2 tabs TID) and continued his Rasagiline. For his dizziness, given his history of CAD and CABG in 2007 along with up trending troponin levels cardiology was consulted and an ECHO was completed. Cardiology believed the elevated troponin levels were from his elevated BP at presentation and given his moderate LVH likely represent subendocardial ischemia or supply demand mismatch. Cardiology wanted his to continue his home medications of Clopidogrel 75mg, atorvastatin 20mg, and metoprolol. He was also instructed to continue home antihypertensives: HCTZ and Losartan 100mg. Additionally his creatinine remained close to his established baseline during admission in light of his CKD stage 4. Nephrotoxins were avoided. He received DVT prophylaxis with heparin. He was instructed to follow up with senior executive assistant Dr. Dockery on an outpatient basis and neurology as scheduled for May. Total Time Spent: Greater than 30 minutes This includes examination of the patient, discharge planning, medication reconciliation, and communication with other providers. (Pattie Meyer M.D.) Discharge Instructions Please refer to the electronic Patient Visit Report (Discharge Instructions) for additional information. (Pattie Meyer M.D.) Follow-Up Follow up with PCP within 1 week and neurology and cardiology as recommended (Pattie Meyer M.D.) History Resident Physician Supervision Note: I was present with Dr. Meyer during the history and exam. I discussed the case with the resident and agree with the findings and plan as documented in the note. Any exceptions or clarifications are listed here. Pt reports resolution of lightheadedness and resting comfortably in bed without pain. Reports no PICKENS, dizziness, CP/palpitations, SOB, paresthesias, nausea, gait imbalance. feels he is mobile at baseline and is willing to work with him at home with outpatient PT and home health support. (Colin Weller MD) General Appearance: no apparent distress, thin Respiratory: chest non-tender, lungs clear, normal breath sounds, no respiratory distress Cardiovascular: normal peripheral pulses, regular rate, rhythm, no edema, no murmur Gastrointestinal: normal bowel sounds, non tender, soft, no organomegaly Neurologic/Psychiatric: alert, normal mood/affect, oriented x 3 (Colin Weller MD) Assessment/Plan 86 y/o male h/o CAD s/p CABG in 2007, HTN, CKD of unknown baseline, HTN, chronic constipation presenting with new onset dizziness episode x 2 days Dizziness - neurology consulted, MRI w/o acute pathology - discharge w/ increased synemet and contninue rasagiline. Home PT/OT & home health Parkinson's - regimen as above h/o CAD s/p CABG - cardiology consulted, echocardiogram complete - Continue plavix, statin, toprol CKD stage IV - at baseline - avoid nephrotoxic medications (Colin Weller MD)
== END 2016-12-28 18:32 | disposition home health service (06) | DRG 57 ==
LOC: C.EDB 11:48 → C.MED 16:14 → ENRESERV 17:01
PROVIDERS: ADMIT Family Medicine; ATTEND Family Medicine
DX: G20 Parkinson's disease (principal); I24.8 Other forms of acute ischemic heart disease; N18.4 Chronic kidney disease, stage 4 (severe); R53.1 Weakness; I25.10 Atherosclerotic heart disease of native coronary artery without angina pectoris; K59.00 Constipation, unspecified; Z95.1 Presence of aortocoronary bypass graft; N32.81 Overactive bladder; R42 Dizziness and giddiness; E78.5 Hyperlipidemia, unspecified; H40.9 Unspecified glaucoma; N40.1 Benign prostatic hyperplasia with lower urinary tract symptoms; R10.13 Epigastric pain; I12.9 Hypertensive chronic kidney disease with stage 1 through stage 4 chronic kidney disease, or unspecified chronic kidney disease

== ENCOUNTER → 2017-02-05 | Outpatient (CLI) | payer BC ==
[~2017-02-05] MED LIST changes: -CALC-20 PO; -CHOL1000 PO; -FERR325T74 PO; +PLV75 PO; -SILO8CAP PO; +TOLT2TAB9 PO; -VSC/10 PO
--- NOTE | 2017-02-05 16:39 | DIAGNOSTIC IMAGING REPORT ---
(RENAL)RETROPERITON COMP HISTORY: 87 years-old Male I10 [id number] Stage III chronic kidney [id number] Anem COMPARISON: CT abdomen and pelvis 08/05/2015 TECHNIQUE: Multiple real-time sonographic images of the kidneys and urinary bladder were obtained assessing grayscale appearance and color flow. FINDINGS: Right kidney measures 9.4 x 3.7 x 4.3 cm. Mildly increased echogenicity of the right kidney is noted. Subcentimeter cyst of the inferior pole right kidney is noted. There is no significant right-sided hydronephrosis or renal calculi. Left kidney measures 9.8 x 4.7 x 4.3 cm. Cyst within the superior pole left kidney is noted with an apparent thin internal septation which overall measures up to 2.5 cm. Cyst was noted within this distribution on comparison study 08/05/2015 without significant change in size. There are additional scattered cysts of the left kidney measuring in the 1.5 cm range. No definite left-sided renal calculi or hydronephrosis. There is increased echogenicity of the left renal parenchyma as well. Trabeculated urinary bladder wall is noted with thickened shearer. There are apparent bladder diverticula noted containing calcifications, largest which measures up to 0.9 cm on the right. Left ureteral jet is seen. The right ureteral jet is not definitely identified. IMPRESSION: 1. Increased echogenicity of the bilateral kidneys suggests underlying chronic medical renal disease. No definite renal calculi or hydronephrosis identified. 2. Bilateral renal cysts. 3. Thickened urinary bladder shearer with trabeculation and bladder diverticula suggests sequela of chronic bladder obstruction. Some of the bladder diverticula contain internal calculi measuring up to 0.9 cm. The above report was generated using voice recognition software. It may contain grammatical, syntax or spelling errors. Electronically signed by: Rubio Masters M.D. 02/05/2017 4:38 PM Dictated Date/Time: 02/05/2017 4:32 PM
== END | disposition home or self-care (01) ==
LOC: C.ULTR 15:40
PROVIDERS: ATTEND Internal Medicine Nephrology
DX: D64.9 Anemia, unspecified (principal); I10 Essential (primary) hypertension; N18.3 Chronic kidney disease, stage 3 (moderate); R80.9 Proteinuria, unspecified

== ENCOUNTER → 2017-02-05 | Outpatient (CLI) | payer BC ==
[2017-02-05 16:53] LABS: PATIENT HEIGHT 165.1 cm
[2017-02-05 17:48] LABS: HEMATOCRIT 31.6 % (42-52); MEAN CELL VOLUME 90.8 fL (80-100); MEAN CORPUSCULAR HEMOGLOBIN 27.9 pg (25-34); MEAN CORPUSCULAR HGB CONC 30.7 g/dl (32-36); MEAN PLATELET VOLUME 11.3 fL (7.4-10.4); PLATELET COUNT 151 K/uL (130-400); RED BLOOD COUNT 3.48 M/uL (4.7-6.1); WHITE BLOOD COUNT 4.75 K/uL (4.8-10.8)
[2017-02-05 18:05] LABS: ALT/SGPT 11 U/L (12-78); BLOOD UREA NITROGEN 46 mg/dl (7-18); BUN/CREATININE RATIO 19.9 (10-20); CALCIUM 8.5 mg/dl (8.5-10.1); CARBON DIOXIDE 28 mmol/L (21-32); CHLORIDE 109 mmol/L (98-107); GLUCOSE 117 mg/dl (70-99); POTASSIUM 4.1 mmol/L (3.5-5.1); SODIUM 146 mmol/L (136-145)
[2017-02-05 18:08] LABS: ALB/GLOB RATIO 1.3 (0.9-2); ALKALINE PHOSPHATASE 69 U/L (45-117); AST/SGOT 19 U/L (15-37)
[2017-02-05 18:12] LABS: URINE TOTAL PROTEIN 67.5 mg/dl (0-11.9)
[2017-02-05 18:31] LABS: CREATININE 2.3 mg/dl (0.6-1.4)
== END | disposition home or self-care (01) ==
LOC: C.LAB1850 16:38
PROVIDERS: ATTEND Internal Medicine Nephrology
DX: I10 Essential (primary) hypertension (principal); N18.3 Chronic kidney disease, stage 3 (moderate); D64.9 Anemia, unspecified; R80.9 Proteinuria, unspecified

== ENCOUNTER → 2017-08-20 | Outpatient (CLI) | payer BC ==
[~2017-08-20] MED LIST changes: +AMLO2.5T PO
--- NOTE | 2017-08-20 19:24 | DIAGNOSTIC IMAGING REPORT ---
BILATERAL LOWER EXTREMITY VENOUS DOPPLER HISTORY: Acute bilateral lower extremity swelling BILATERAL LEG SWELLING COMPARISON STUDY: None. FINDINGS: There is normal compressibility, flow, and augmentation within the bilateral lower extremity deep venous systems. Study is limited secondary to bilateral lower extremity subcutaneous edema. IMPRESSION: No sonographic evidence of deep venous thrombosis within the right or left lower extremity. Electronically signed by: Rubio Masters M.D. 08/20/2017 7:23 PM Dictated Date/Time: 08/20/2017 7:22 PM
[2017-08-20 22:35] LABS: BLOOD UREA NITROGEN 66 mg/dl (7-18); CALCIUM 8.1 mg/dl (8.5-10.1); CARBON DIOXIDE 23 mmol/L (21-32); CREATININE 2.88 mg/dl (0.60-1.40); GLUCOSE 80 mg/dl (70-99); POTASSIUM 3.9 mmol/L (3.5-5.1); SODIUM 146 mmol/L (136-145)
== END | disposition home or self-care (01) ==
LOC: C.ULTR 18:24
PROVIDERS: ATTEND Family Medicine
DX: M79.89 Other specified soft tissue disorders (principal)

== ENCOUNTER 2017-08-25 16:06 | Inpatient (IN) | payer BC, OTHER ==
[~2017-08-25] VITALS: Ht 170.2 cm; Wt 58.4 kg
[~2017-08-25 16:06] MED LIST changes: -AMLO2.5T PO
[2017-08-25] MEDS ORDERED: AMLO2.5T PO (16:34)
--- NOTE | 2017-08-25 17:01 | EMERGENCY ROOM VISIT NOTE ---
History Report prepared by Alba: Sukhdeep Watkins Under the Supervision of: Dr. Kelsey Wick M.D. First contact with patient: 16:34 Chief Complaint: SWELLING TO EXTREMITY Stated Complaint: SWOLLEN LEG History of Present Illness The patient is an 87 year old male who presents to the Emergency Room with complaints of worsening right leg swelling starting a few weeks ago. The states that the patient has been having some drainage and bleeding form the leg this morning, and the patient additionally had a fall this morning. The patient states that he is not having any pain, and he did not hurt anything else while falling. The patient states that he was sitting in a chair and lost his balance , and he sat onto the floor. He was able to get up by himself afterwards. The patient states that he is currently on Plavix, and he has a history of a bypass more than 10 years ago. He denies any chest pain, shortness of breath, headache , nausea, and vomiting. He states that he gets tried when he walks. Per the patient's , the patient is currently at his baseline. The patient had an ultrasound and blood test earlier this week. Source of History: patient, spouse/significant other Onset: a few weeks ago Position: knee (right) Quality: other (swelling) Timing: worsening Associated Symptoms: No headache, No chest pain, No SOB, No nausea, No vomiting Note: Associated symptoms: he gets tired when he walks. Review of Systems See HPI for pertinent positives & negatives. A total of 10 systems reviewed and were otherwise negative. Past Medical & Surgical Medical Problems: (1) Benign hypertension (2) Heart disease (3) Inguinal hernia (4) Leg weakness, bilateral (5) Parkinson's disease Family History Unknown Social History Smoking Status: Never Smoker Alcohol Use: none Drug Use: none Marital Status: Housing Status: lives with significant other Occupation Status: retired Current/Historical Medications Scheduled Amlodipine Besylate (Norvasc), 2.5 MG PO DAILY Atorvastatin (Lipitor), 20 MG PO QPM Carbidopa-Levodopa (Sinemet Cr 25MG/100MG), 3 TAB PO TID Clopidogrel Bisulfate (Clopidogrel), 75 MG PO DAILY Losartan Potassium & Hydrochlo (Hyzaar), 1 TABLET PO QAM Metoprolol Tartrate (Lopressor) (Lopressor), 12.5 MG PO BID Rasagiline Mesylate (Azilect), 1 MG PO DAILY Tolterodine Tartrate (Tolterodine Tartrate), 2 MG PO BID Travoprost (Travatan Z), 1 DROPS OP QAM Allergies Coded Allergies: Alfuzosin (Unverified Allergy, Unknown, DIZZY, 08/25/17) Lactose Intolerance (GI) (Unverified Allergy, Unknown, diarrhea with milk products, 08/25/17) Physical Exam Vital Signs Date Time Temp Pulse Resp B/P (MAP) Pulse Ox O2 Delivery O2 Flow Rate FiO2 08/25/17 19:45 59 20 177/75 96 Nasal Cannula 3.0 08/25/17 18:17 68 22 200/86 100 Nasal Cannula 3.0 08/25/17 17:29 69 08/25/17 17:00 97 Nasal Cannula 2.0 08/25/17 16:11 36.2 64 20 166/65 88 Room Air Physical Exam Vital signs reviewed. General: Chronically ill-appearing male on nasal cannula oxygen. HEENT: No scleral icterus, PERRLA, neck supple. Atraumatic. Cardiovascular: Regular rate and rhythm. He has S1, S2, and S3 heart tones. Pulmonary: Clear to auscultation bilaterally, normal work of breathing. Abdomen: Soft, nontender, nondistended, positive bowel sounds. Musculoskeletal: There is dependent peripheral edema of the bilateral lower extremities with a 1 cm laceration to the anterior zheng. No active bleeding. Positive serous drainage. Neurologic: Patient awake alert and oriented x 3, full strength in all 4 extremities. Cranial nerves 2 through 12 grossly intact. Skin: Warm, dry, no rash Medical Decision & Procedures ER Provider Diagnostic Interpretation: Radiology results as stated below per my review and radiologist interpretation: R TIBIA/FIBULA 2 VIEWS ROUTINE CLINICAL HISTORY: Right lower leg trauma. Pain. COMPARISON STUDY: None. FINDINGS: No fracture or dislocation. Mild subcutaneous edema. Mild vascular calcifications. The bones are slightly osteopenic. IMPRESSION: No fracture or dislocation within the right tibia or fibula. Electronically signed by: Arnulfo Sofia M.D. 08/25/2017 5:53 PM Dictated Date/Time: 08/25/2017 5:51 PM CHEST ONE VIEW PORTABLE HISTORY: Short of breath. Congestive heart failure. COMPARISON: Chest 12/26/2016. FINDINGS: No pneumothorax. Small bilateral pleural effusions have developed. Right basilar calcified pleural plaque is again noted. The heart is moderately enlarged. This has increased in size. Perihilar interstitial and vascular thickening consistent with mild pulmonary edema. Bibasilar densities favor atelectasis from the pleural effusions. There are poststernotomy changes. Old, healed left-sided rib fractures. IMPRESSION: Interval development of mild pulmonary edema and small bilateral pleural effusions. Electronically signed by: Arnulfo Sofia M.D. 08/25/2017 5:51 PM Dictated Date/Time: 08/25/2017 5:[address]AST CT DOSE: 2211.36 mGy.cm HISTORY: fall TECHNIQUE: Multiaxial CT images of the head were performed without the use of intravenous contrast. Automated exposure control was utilized for this study. A dose lowering technique was utilized adhering to the principles of ALARA. Comparison: Head CT 12/26/2016. Findings: The paranasal sinuses and mastoid air cells are clear. The calvarium and skull base are intact. There is no mass, hematoma, midline shift, acute infarct. White matter hypodensity is nonspecific but suggestive of microvascular ischemic change. The ventricles and sulci demonstrate mild age-related involutional changes. Mild motion artifact. Impression: No acute intracranial abnormality. Atrophy and microvascular ischemic changes. Electronically signed by: Arnulfo Sofia M.D. 08/25/2017 7:11 PM Dictated Date/Time: 08/25/2017 7:06 PM Laboratory Results 08/25/17 17:35 Red Blood Count 3.37, Mean Corpuscular Volume 90.5, Mean Corpuscular Hemoglobin 28.5, Mean Corpuscular Hemoglobin Concent 31.5, Mean Platelet Volume 10.9, Neutrophils (%) (Auto) 77.5, Lymphocytes (%) (Auto) 14.6, Monocytes (%) (Auto) 6.1, Eosinophils (%) (Auto) 1.3, Basophils (%) (Auto) 0.1, Neutrophils # (Auto) 5.20, Lymphocytes # (Auto) 0.98, Monocytes # (Auto) 0.41, Eosinophils # (Auto) 0.09, Basophils # (Auto) 0.01 Test 08/25/17 17:35 08/25/17 17:43 White Blood Count 6.72 K/uL (4.8-10.8) Red Blood Count 3.37 M/uL (4.7-6.1) Hemoglobin 9.6 g/dL (14.0-18.0) Hematocrit 30.5 % (42-52) Mean Corpuscular Volume 90.5 fL (80-100) Mean Corpuscular Hemoglobin 28.5 pg (25-34) Mean Corpuscular Hemoglobin Concent 31.5 g/dl (32-36) Platelet Count 184 K/uL (130-400) Mean Platelet Volume 10.9 fL (7.4-10.4) Neutrophils (%) (Auto) 77.5 % Lymphocytes (%) (Auto) 14.6 % Monocytes (%) (Auto) 6.1 % Eosinophils (%) (Auto) 1.3 % Basophils (%) (Auto) 0.1 % Neutrophils # (Auto) 5.20 K/uL (1.4-6.5) Lymphocytes # (Auto) 0.98 K/uL (1.2-3.4) Monocytes # (Auto) 0.41 K/uL (0.11-0.59) Eosinophils # (Auto) 0.09 K/uL (0-0.5) Basophils # (Auto) 0.01 K/uL (0-0.2) RDW Standard Deviation 50.8 fL (36.4-46.3) RDW Coefficient of Variation 15.4 % (11.5-14.5) Immature Granulocyte % (Auto) 0.4 % Immature Granulocyte # (Auto) 0.03 K/uL (0.00-0.02) Total Bilirubin 0.5 mg/dl (0.2-1) Direct Bilirubin mg/dl (0-0.2) Aspartate Amino Transf (AST/SGOT) 60 U/L (15-37) Alanine Aminotransferase (ALT/SGPT) 33 U/L (12-78) Alkaline Phosphatase 146 U/L (45-117) Total Protein 7.5 gm/dl (6.4-8.2) Albumin 3.7 gm/dl (3.4-5.0) Lipase 156 U/L (73-393) Chemistry Specimen Hemolysis Bedside Troponin I 0.130 ng/ml (0-0.045) Laboratory results per my review. Medications Administered Medications (Trade) Dose Ordered Sig/Janet Route Start Time Stop Time Status Last Admin Dose Admin Furosemide (Lasix Inj) 40 mg NOW STAT IV 08/25/17 18:23 08/25/17 18:25 DC 08/25/17 18:33 40 MG Nitroglycerin (Nitroglycerin 2% Oint) 0.5 inch NOW STAT EXT 08/25/17 18:26 08/25/17 18:28 DC 08/25/17 18:38 0.5 INCH Heparin Sodium (Porcine) (Heparin Sq 5000 Unit/0.5ml) 5,000 unit Q8H SQ 08/25/17 18:00 09/24/17 17:59 08/27/17 01:50 5,000 UNIT ECG Per My Interpretation Indication: other (leg swelling) Rate (beats per minute): 68 Rhythm: sinus rhythm Findings: other (Premature supraventricular complexes. LVH. T wave flattening laterally. No acute ST segment elevation) ED Course 1633: Past medical records reviewed. The patient was evaluated in room A9. A complete history and physical examination was performed. 1819: I reviewed the patient's case with Dr. Malin - [facility] Hospitalist. He will evaluate the patient for further management. 1822: I reevaluated the patient, and his pressure was up. I discussed the treatment plan with him and his . He will be further evaluated by the hospitalist. I ordered Lasix 40mg IV 1825: Nitroglycerin 0.5 inch EXT Medical Decision Differential diagnosis: Etiologies such as metabolic, infection, hypo/hyperglycemia, electrolyte abnormalities, cardiac sources, intracerebral event, toxicologic, neurologic, congestive failure, renal failure, hypoxia, as well as others were entertained. This pt was evaluated and appeared to be in no distress. IV access was obtained and lab work was drawn. CXR is c/w CHF, EKG reveals T wave flattening laterally. Pt is hypertensive. He was given top NTG paste, IV lasix 40 mg. Lab work indicates CRF, elevated troponin. Pt was feeling improved, respiratory status was maintained on n/c O2. Wound was bandaged. Tib/Fib XR is negative. CT head is negative for acute intracranial abnl. Pt was d/w the [facility] hospitalist service for further management. Pt and family are aware of the plan and agree. Medication Reconcilliation Current Medication List: was personally reviewed by me Blood Pressure Screening Patient's blood pressure: Elevated blood pressure Monitored by the hospitalist Consults Time Called: 1816 Consulting Physician: Dr. Dea CASTELLANO Hospitalist Returned Call: 1819 I reviewed the patient's case with Dr. Dea CASTELLANO Hospitalist. He will evaluate the patient for further management. Impression Primary Impression: CHF (congestive heart failure) Additional Impressions: Elevated troponin Chronic renal disease Scribe Attestation The scribe's documentation has been prepared under my direction and personally reviewed by me in its entirety. I confirm that the note above accurately reflects all work, treatment, procedures, and medical decision making performed by me. Departure Information Dispostion Being Evaluated By Hospitalist Referrals Gene Crawford M.D. (PCP) Patient Instructions My [facility] Problem Qualifiers
[2017-08-25 17:47] LABS: BASO % 0.1 %; BASO ABS # 0.01 K/uL (0-0.2); EOS % 1.3 %; EOS ABS # 0.09 K/uL (0-0.5); HEMATOCRIT 30.5 % (42-52); HEMOGLOBIN 9.6 g/dL (14.0-18.0); IG# 0.03 K/uL (0.00-0.02); LYMPH % 14.6 %; LYMPH ABS # 0.98 K/uL (1.2-3.4); MEAN CELL VOLUME 90.5 fL (80-100); MEAN CORPUSCULAR HEMOGLOBIN 28.5 pg (25-34); MEAN CORPUSCULAR HGB CONC 31.5 g/dl (32-36); MEAN PLATELET VOLUME 10.9 fL (7.4-10.4); MONO % 6.1 %; MONO ABS # 0.41 K/uL (0.11-0.59); NEUT % 77.5 %; PLATELET COUNT 184 K/uL (130-400); RED CELL DISTRIBUTION WIDTH CV 15.4 % (11.5-14.5); RED CELL DISTRIBUTION WIDTH SD 50.8 fL (36.4-46.3); WHITE BLOOD COUNT 6.72 K/uL (4.8-10.8)
--- NOTE | 2017-08-25 17:52 | DIAGNOSTIC IMAGING REPORT ---
CHEST ONE VIEW PORTABLE HISTORY: Short of breath. Congestive heart failure. COMPARISON: Chest 12/26/2016. FINDINGS: No pneumothorax. Small bilateral pleural effusions have developed. Right basilar calcified pleural plaque is again noted. The heart is moderately enlarged. This has increased in size. Perihilar interstitial and vascular thickening consistent with mild pulmonary edema. Bibasilar densities favor atelectasis from the pleural effusions. There are poststernotomy changes. Old, healed left-sided rib fractures. IMPRESSION: Interval development of mild pulmonary edema and small bilateral pleural effusions. Electronically signed by: Arnulfo Sofia M.D. 08/25/2017 5:51 PM Dictated Date/Time: 08/25/2017 5:50 PM
--- NOTE | 2017-08-25 17:54 | DIAGNOSTIC IMAGING REPORT ---
R TIBIA/FIBULA 2 VIEWS ROUTINE CLINICAL HISTORY: Right lower leg trauma. Pain. COMPARISON STUDY: None. FINDINGS: No fracture or dislocation. Mild subcutaneous edema. Mild vascular calcifications. The bones are slightly osteopenic. IMPRESSION: No fracture or dislocation within the right tibia or fibula. Electronically signed by: Arnulfo Sofia M.D. 08/25/2017 5:53 PM Dictated Date/Time: 08/25/2017 5:51 PM
[2017-08-25] MEDS ORDERED: FUROSEMIDE 40 MG/4 ML VIAL IV STA (18:23)
[2017-08-25 18:24] LABS: ALBUMIN 3.7 gm/dl (3.4-5.0); CALCIUM 8.4 mg/dl (8.5-10.1); CREATININE 2.88 mg/dl (0.60-1.40); TOTAL PROTEIN 7.5 gm/dl (6.4-8.2)
[2017-08-25] MEDS ORDERED: NITROGLYCERIN 2% OINTMENT 30GM TUBE EXT STA (18:26)
--- NOTE | 2017-08-25 19:13 | DIAGNOSTIC IMAGING REPORT ---
HEAD CT NONCONTRAST CT DOSE: 2211.36 mGy.cm HISTORY: fall TECHNIQUE: Multiaxial CT images of the head were performed without the use of intravenous contrast. Automated exposure control was utilized for this study. A dose lowering technique was utilized adhering to the principles of ALARA. Comparison: Head CT 12/26/2016. Findings: The paranasal sinuses and mastoid air cells are clear. The calvarium and skull base are intact. There is no mass, hematoma, midline shift, acute infarct. White matter hypodensity is nonspecific but suggestive of microvascular ischemic change. The ventricles and sulci demonstrate mild age-related involutional changes. Mild motion artifact. Impression: No acute intracranial abnormality. Atrophy and microvascular ischemic changes. Electronically signed by: Arnulfo oSfia M.D. 08/25/2017 7:11 PM Dictated Date/Time: 08/25/2017 7:06 PM
[2017-08-25] MEDS ORDERED: ACETAMINOPHEN 325 MG TAB PO PRN (20:00)
[2017-08-25] MEDS ORDERED: ALUMINUM/MAGNESIUM/SIMETH (MAALOX MAX) 30 ML UDC PO PRN (20:00)
--- NOTE | 2017-08-25 20:48 | History and Physical ---
History & Physical Date & Time of Service: Aug 25, 2017 at 20:20 Chief Complaint: Swollen Leg Primary Care Physician: Gene Crawford M.D. History of Present Illness Source: patient, family Mr. Hodges is an 87yo male who was sent from his PCP with bilateral LE edema/pain and shortness of breath progressive x 2 weeks. Family also reports increased frequency of falls over the last two weeks - last fall today, unwitnessed, no head trauma reported. Patient states he feels well, no complaints. He denies CP/palpitations/cough or wheeze. He denies abdominal pain/nausea/vomiting/diarrhea/constipation. He reports normal urine output. No additional complaints today. In the ER the patient was hypertensive, 200/86. He was administered Lasix 40mg IV and Nitropaste Past Medical/Surgical History Medical Problems: (1) Benign hypertension (2) Chronic kidney disease (CKD) (3) Elevated troponin (5) CAD s/p CABG in 2001 (6) Inguinal hernia (7) Leg weakness, bilateral (8) Parkinson's disease (9) Chronic constipation (10) Overacteive bladder Family History Unknown Stomach cancer Hypertension Diabetes Social History Patient lives at home with family. He requires assistance with some ADLs. He has a wheelchair and a walker at home Smoking Status: Former Smoker Smokeless Tobacco Use: No Alcohol Use: none Drug Use: none Marital Status: Housing status: lives with family, lives with significant other Occupational Status: retired Immunizations History of Influenza Vaccine: N/A History of Tetanus Vaccine?: Yes History of Pneumococcal: Unknown History of Hepatitis B Vaccine: No Allergies Coded Allergies: Alfuzosin (Unverified Allergy, Unknown, DIZZY, 08/25/17) Lactose Intolerance (GI) (Unverified Allergy, Unknown, diarrhea with milk products, 08/25/17) Home Medications Scheduled Amlodipine Besylate (Norvasc), 2.5 MG PO DAILY Atorvastatin (Lipitor), 20 MG PO QPM Carbidopa-Levodopa (Sinemet Cr 25MG/100MG), 3 TAB PO TID Clopidogrel Bisulfate (Clopidogrel), 75 MG PO DAILY Losartan Potassium & Hydrochlo (Hyzaar), 1 TABLET PO QAM Metoprolol Tartrate (Lopressor) (Lopressor), 12.5 MG PO BID Rasagiline Mesylate (Azilect), 1 MG PO DAILY Tolterodine Tartrate (Tolterodine Tartrate), 2 MG PO BID Travoprost (Travatan Z), 1 DROPS OP QAM Review of Systems Constitutional: No fever, No chills Eyes: No worsening of vision ENT: No hearing loss Respiratory: + shortness of breath, No cough, No sputum, No wheezing Cardiovascular: + edema, No chest pain, No orthopnea, No palpitations Abdomen: No pain, No nausea, No vomiting, No diarrhea Musculoskeletal: + swelling, + calf pain Genitourinary - Male: No hematuria, No dysuria Neurologic: + weakness Physical Exam Vital Signs Date Time Temp Pulse Resp B/P (MAP) Pulse Ox O2 Delivery O2 Flow Rate FiO2 08/25/17 19:45 59 20 177/75 96 Nasal Cannula 3.0 08/25/17 18:17 68 22 200/86 100 Nasal Cannula 3.0 08/25/17 17:29 69 08/25/17 17:00 97 Nasal Cannula 2.0 08/25/17 16:11 36.2 64 20 166/65 88 Room Air Blood pressure 177/75, O2 removed, patient with no respiratory distress, 93% General Appearance: no apparent distress Head: normocephalic, atraumatic Eyes: normal inspection, PERRL, EOMI, sclerae normal ENT: hearing grossly normal, pharynx normal Neck: supple, no adenopathy, thyroid normal Respiratory/Chest: chest non-tender, lungs clear, normal breath sounds, no respiratory distress, no accessory muscle use Cardiovascular: regular rate, rhythm (bradycardic with ectopy), no edema (1+ pitting edema of bilateral LE, hemosiderin staining) Abdomen/GI: normal bowel sounds, non tender, soft, no organomegaly Neurologic/Psych: alert, normal mood/affect Skin: normal color, warm/dry Lymphatic: no adenopathy Diagnostics Laboratory Results Results Past 24 Hours Test 08/25/17 17:35 08/25/17 17:43 Range/Units White Blood Count 6.72 4.8-10.8 K/uL Red Blood Count 3.37 4.7-6.1 M/uL Hemoglobin 9.6 14.0-18.0 g/dL Hematocrit 30.5 42-52 % Mean Corpuscular Volume 90.5 80-100 fL Mean Corpuscular Hemoglobin 28.5 25-34 pg Mean Corpuscular Hemoglobin Concent 31.5 32-36 g/dl Platelet Count 184 130-400 K/uL Mean Platelet Volume 10.9 7.4-10.4 fL Neutrophils (%) (Auto) 77.5 % Lymphocytes (%) (Auto) 14.6 % Monocytes (%) (Auto) 6.1 % Eosinophils (%) (Auto) 1.3 % Basophils (%) (Auto) 0.1 % Neutrophils # (Auto) 5.20 1.4-6.5 K/uL Lymphocytes # (Auto) 0.98 1.2-3.4 K/uL Monocytes # (Auto) 0.41 0.11-0.59 K/uL Eosinophils # (Auto) 0.09 0-0.5 K/uL Basophils # (Auto) 0.01 0-0.2 K/uL RDW Standard Deviation 50.8 36.4-46.3 fL RDW Coefficient of Variation 15.4 11.5-14.5 % Immature Granulocyte % (Auto) 0.4 % Immature Granulocyte # (Auto) 0.03 0.00-0.02 K/uL Sodium Level 144 136-145 mmol/L Potassium Level 4.0 3.5-5.1 mmol/L Chloride Level 112 98-107 mmol/L Carbon Dioxide Level 23 21-32 mmol/L Anion Gap 9.0 3-11 mmol/L Blood Urea Nitrogen 75 7-18 mg/dl Creatinine 2.88 0.60-1.40 mg/dl Est Creatinine Clear Calc Drug Dose 14.6 ml/min Estimated GFR () 21.7 Estimated GFR (Non- 18.8 BUN/Creatinine Ratio 26.0 10-20 Random Glucose 97 70-99 mg/dl Calcium Level 8.4 8.5-10.1 mg/dl Magnesium Level 2.6 1.8-2.4 mg/dl Total Bilirubin 0.5 0.2-1 mg/dl Direct Bilirubin 0-0.2 mg/dl Aspartate Amino Transf (AST/SGOT) 60 15-37 U/L Alanine Aminotransferase (ALT/SGPT) 33 12-78 U/L Alkaline Phosphatase 146 45-117 U/L Pro-B-Type Natriuretic Peptide 26697 0-1800 pg/ml Total Protein 7.5 6.4-8.2 gm/dl Albumin 3.7 3.4-5.0 gm/dl Lipase 156 73-393 U/L Chemistry Specimen Hemolysis Bedside Troponin I 0.130 0-0.045 ng/ml Troponin I 0.147 0-0.045 ng/ml Diagnostic Radiology CHEST ONE VIEW PORTABLE HISTORY: Short of breath. Congestive heart failure. COMPARISON: Chest 12/26/2016. FINDINGS: No pneumothorax. Small bilateral pleural effusions have developed. Right basilar calcified pleural plaque is again noted. The heart is moderately enlarged. This has increased in size. Perihilar interstitial and vascular thickening consistent with mild pulmonary edema. Bibasilar densities favor atelectasis from the pleural effusions. There are poststernotomy changes. Old, healed left-sided rib fractures. IMPRESSION: Interval development of mild pulmonary edema and small bilateral pleural effusions. HEAD CT NONCONTRAST CT DOSE: 2211.36 mGy.cm HISTORY: fall TECHNIQUE: Multiaxial CT images of the head were performed without the use of intravenous contrast. Automated exposure control was utilized for this study. A dose lowering technique was utilized adhering to the principles of ALARA. Comparison: Head CT 12/26/2016. Findings: The paranasal sinuses and mastoid air cells are clear. The calvarium and skull base are intact. There is no mass, hematoma, midline shift, acute infarct. White matter hypodensity is nonspecific but suggestive of microvascular ischemic change. The ventricles and sulci demonstrate mild age-related involutional changes. Mild motion artifact. Impression: No acute intracranial abnormality. Atrophy and microvascular ischemic changes. Impression Assessment and Plan 87yo male presenting with progressive bilateral LE edema, weakness, increased frequency of falls. 1. Bilateral LE edema - patient with elevated LJV=[id number], concern for CHF exacerbation. -Check 2D echocardiogram -Lasix 40mg IV BID -Losartan 100mg po daily - home dose -Will hold BB in setting of suspected HF exacerbation and bradycardia 2. HTN - patient with elevated blood pressure while in ER. Reports not taking his evening medications -Resume Losartan 100mg po daily -Resume Amlodipine 2.5mg po daily - doubt that this is responsible for LE edema -Will hold BB in setting of suspected HF exacerbation and relative bradycardia -Hydralazine PRN SBP >180mmHg 3. CAD - stable. Patient denies CP at present. EKG with no ischemic changes. Detectable troponin at 0.147, patient has had elevated troponins in the past. Most likely secondary to supply-demand mismatch in setting of elevated BP and renal failure. -continue to trend troponin x 4 sets -Continue home Lipitor -Continue home Plavix -Holding BB as above 4. Falls - patient with increased frequency of falls over the last 2 weeks as well as progressive gait instability. Most likely secondary to progression of PD -Fall precautions -PT/OT assessment 5. PD - stable. Continue home Sinemet and Azilect 6. Overactive bladder - stable. Continue home toteridone 7. Chronic constipation - bowel regimen with Colace 100mg po BID PRN 8. F/E/N - Heplock. Monitor electrolytes. Regular diet, soft mechanical as tolerated with aspiration precautions 9. Ppx - Heparin for DVT ppx 10. Code - DNR per discussion with patient and family 11. Dispo - Observation Resuscitation Status VTE Prophylaxis Will order VTE Prophylaxis: Yes
[2017-08-25] MEDS ORDERED: DOCUSATE SODIUM 100 MG CAP PO PRN (21:00)
[2017-08-25 22:15] VITALS: BP 201/78; PULSE 62; TEMP 36.4; BMI 19.7
[2017-08-25] MEDS: AZILECT~ORDER AWAITING ACTION SCH ×2 (22:35→23:28)
[2017-08-25] MEDS: CARBIDOPA/LEVODOPA 25/100MG EXT REL TAB PO SCH (22:35)
[2017-08-25] MEDS: ATORVASTATIN 20 MG TAB PO SCH (22:36)
[2017-08-25] MEDS: TOLTERODINE TARTRATE 2 MG TAB PO SCH (22:36)
[2017-08-25] MEDS: FUROSEMIDE INJ 40 MG in SYRINGE 0 ML IV SCH (22:38)
[2017-08-26] VITALS (7 sets, daily range): BP systolic 135–203; BP diastolic 56–80; PULSE 56–71; TEMP 36.2–36.4; O2SAT 93–100
[2017-08-26] MEDS: AZILECT~ORDER AWAITING ACTION SCH ×3 (07:17→23:30)
[2017-08-26] MEDS: AMLODIPINE BESYLATE 5 MG TAB PO SCH (08:41)
[2017-08-26] MEDS: TOLTERODINE TARTRATE 2 MG TAB PO SCH ×2 (08:41→20:38)
[2017-08-26] MEDS: CLOPIDOGREL BISULFATE 75 MG TAB PO SCH (08:41)
[2017-08-26] MEDS: CARBIDOPA/LEVODOPA 25/100MG EXT REL TAB PO SCH ×3 (08:41→20:37)
[2017-08-26] MEDS: TRAVOPROST Z 0.004% OPH SOLN 2.5 ML BTL OP SCH (08:41)
[2017-08-26] MEDS: LOSARTAN POTASSIUM 50 MG TAB PO SCH (08:41)
[2017-08-26] MEDS: FUROSEMIDE INJ 40 MG in SYRINGE 0 ML IV SCH ×2 (08:42→20:36)
[2017-08-26] MEDS ORDERED: HEPARIN SOD 5000 UNIT/0.5 ML CARP SQ SCH (09:00)
[2017-08-26 09:19] LABS: CALCIUM 8.4 mg/dl (8.5-10.1); CREATININE 2.77 mg/dl (0.60-1.40); POTASSIUM 3.6 mmol/L (3.5-5.1)
[2017-08-26] MEDS: HEPARIN SOD 5000 UNIT/0.5 ML CARP SQ SCH ×2 (09:34→17:34)
[2017-08-26] MEDS ORDERED: POTASSIUM CHLORIDE 20 MEQ TABCR PO STA (13:47)
--- NOTE | 2017-08-26 13:54 | Progress Note ---
Subjective Date of Service: Aug 26, 2017. Subjective Pt evaluation today including: conversation w/ patient, physical exam, lab review, review of inpatient medication list Pain: no pain PO Intake: adequate Voiding: barreto catheter in place patient was having incontinence this AM and last night, difficult to assess urine output barreto placed, 600cc out immediately, clear urine less dyspnea and less edema per patient difficult to assess detailed review of systems due to language barrier reviewed labs, Cr 2.77, K is 3.6 Problem List Medical Problems: (1) CHF (congestive heart failure) Status: Acute (2) Chronic kidney disease (CKD) Status: Acute (3) Chronic renal disease Status: Acute (4) Elevated troponin Status: Acute (5) Elevated troponin Status: Acute (6) Epigastric abdominal pain Status: Acute Review of Systems Constitutional: + weakness, + fatigue Respiratory: + dyspnea on exertion Cardiac: + edema All Other Systems: Reviewed and Negative Medications Current Inpatient Medications Medications (Trade) Dose Ordered Sig/Janet Route Start Time Stop Time Status Last Admin Dose Admin Atorvastatin Calcium (Lipitor Tab) 20 mg QPM PO 08/25/17 21:00 09/24/17 20:59 08/25/17 22:36 20 MG Carbidopa/Levodopa (Sinemet Cr 25/ 100MG Tab) 3 tab TID PO 08/25/17 21:00 09/24/17 20:59 08/26/17 08:41 3 TAB Clopidogrel Bisulfate (plAVix TAB) 75 mg DAILY PO 08/26/17 08:00 09/25/17 08:59 08/26/17 08:41 75 MG Tolterodine Tartrate (Detrol Tab) 2 mg BID PO 08/25/17 21:00 09/24/17 20:59 08/26/17 08:41 2 MG Travoprost (Travatan Z) 1 drops QAM OP 08/26/17 08:00 09/25/17 08:59 08/26/17 08:41 1 DROPS Miscellaneous Information (Order Awaiting Action) 1 ea QS N/A 08/25/17 20:45 09/24/17 20:44 Furosemide 40 mg/ Syringe 4 ml @ 4 mls/min Q12 IV 08/25/17 21:00 09/24/17 20:59 08/26/17 08:42 4 MLS/MIN Losartan Potassium (coZAAR TAB) 100 mg QAM PO 08/26/17 08:00 09/25/17 08:59 08/26/17 08:41 100 MG Heparin Sodium (Porcine) (Heparin Sq 5000 Unit/0.5ml) 5,000 unit Q8H SQ 08/25/17 18:00 09/24/17 17:59 Acetaminophen (Tylenol Tab) 650 mg Q4H PRN PO 08/25/17 20:00 09/24/17 19:59 Al Hydrox/Mg Hydrox/Simethicone (Maalox Max Susp) 15 ml Q4H PRN PO 08/25/17 20:00 09/24/17 19:59 Amlodipine Besylate (Norvasc Tab) 2.5 mg QAM PO 08/26/17 08:00 09/25/17 08:59 08/26/17 08:41 2.5 MG Docusate Sodium (coLACE CAP) 100 mg BID PRN PO 08/25/17 21:00 09/24/17 20:59 08/26/17 08:41 100 MG Hydralazine HCl (HydrALAZINE INJ) 5 mg Q4 PRN IV. 08/25/17 21:00 09/24/17 20:59 Objective Vital Signs Date Time Temp Pulse Resp B/P (MAP) Pulse Ox O2 Delivery O2 Flow Rate FiO2 08/26/17 10:17 149/76 (100) 08/26/17 07:50 Nasal Cannula 2.0 08/26/17 07:45 36.3 71 18 198/74 (115) 93 Nasal Cannula 3.0 08/26/17 04:40 58 158/80 (106) 97 Nasal Cannula 3.0 08/26/17 00:00 Nasal Cannula 3.0 08/25/17 22:15 36.4 62 22 201/78 Nasal Cannula 3.0 08/25/17 20:59 60 20 181/76 98 08/25/17 20:24 79 20 137/46 96 Nasal Cannula 3.0 08/25/17 19:45 59 20 177/75 96 Nasal Cannula 3.0 08/25/17 18:17 68 22 200/86 100 Nasal Cannula 3.0 08/25/17 17:29 69 08/25/17 17:00 97 Nasal Cannula 2.0 08/25/17 16:11 36.2 64 20 166/65 88 Room Air Physical Exam General Appearance: WD/WN, no apparent distress Eyes: normal inspection, EOMI, sclerae normal ENT: normal ENT inspection, hearing grossly normal, pharynx normal Neck: supple, no adenopathy, no JVD, trachea midline Respiratory/Chest: chest non-tender, normal breath sounds, no respiratory distress, no accessory muscle use, + rales (bases) Cardiovascular: regular rate, rhythm, no gallop, no JVD, no murmur Abdomen: normal bowel sounds, non tender, soft, no organomegaly Extremities: normal range of motion, non-tender, normal inspection, no calf tenderness, pelvis stable, + pedal edema (pitting to mid zheng) Neurologic/Psychiatric: intake specialist II-XII nml as tested, no motor/sensory deficits, alert, normal mood/affect, oriented x 3 Skin: + pertinent finding (venous stasis changes bilaterally in lower legs) Lymphatic: no adenopathy Laboratory Results Last 24 Hours Test 08/25/17 17:35 08/25/17 17:43 08/26/17 01:58 08/26/17 08:34 White Blood Count 6.72 K/uL Red Blood Count 3.37 M/uL Hemoglobin 9.6 g/dL Hematocrit 30.5 % Mean Corpuscular Volume 90.5 fL Mean Corpuscular Hemoglobin 28.5 pg Mean Corpuscular Hemoglobin Concent 31.5 g/dl Platelet Count 184 K/uL Mean Platelet Volume 10.9 fL Neutrophils (%) (Auto) 77.5 % Lymphocytes (%) (Auto) 14.6 % Monocytes (%) (Auto) 6.1 % Eosinophils (%) (Auto) 1.3 % Basophils (%) (Auto) 0.1 % Neutrophils # (Auto) 5.20 K/uL Lymphocytes # (Auto) 0.98 K/uL Monocytes # (Auto) 0.41 K/uL Eosinophils # (Auto) 0.09 K/uL Basophils # (Auto) 0.01 K/uL RDW Standard Deviation 50.8 fL RDW Coefficient of Variation 15.4 % Immature Granulocyte % (Auto) 0.4 % Immature Granulocyte # (Auto) 0.03 K/uL Sodium Level 144 mmol/L 142 mmol/L Potassium Level 4.0 mmol/L 3.6 mmol/L Chloride Level 112 mmol/L 110 mmol/L Carbon Dioxide Level 23 mmol/L 26 mmol/L Anion Gap 9.0 mmol/L 7.0 mmol/L Blood Urea Nitrogen 75 mg/dl 69 mg/dl Creatinine 2.88 mg/dl 2.77 mg/dl Est Creatinine Clear Calc Drug Dose 14.6 ml/min 17.6 ml/min Estimated GFR () 21.7 22.8 Estimated GFR (Non- 18.8 19.7 BUN/Creatinine Ratio 26.0 25.1 Random Glucose 97 mg/dl 109 mg/dl Calcium Level 8.4 mg/dl 8.4 mg/dl Magnesium Level 2.6 mg/dl Total Bilirubin 0.5 mg/dl Direct Bilirubin mg/dl Aspartate Amino Transf (AST/SGOT) 60 U/L Alanine Aminotransferase (ALT/SGPT) 33 U/L Alkaline Phosphatase 146 U/L Pro-B-Type Natriuretic Peptide 49744 pg/ml Total Protein 7.5 gm/dl Albumin 3.7 gm/dl Lipase 156 U/L Chemistry Specimen Hemolysis Bedside Troponin I 0.130 ng/ml Troponin I 0.147 ng/ml 0.140 ng/ml 0.141 ng/ml Prothrombin Time 10.6 SECONDS Prothromb Time International Ratio 1.0 Assessment and Plan 87yo male presenting with progressive bilateral LE edema, weakness, increased frequency of falls. - Acute on chronic diastolic heart failure diuresing well with Lasix 40mg IV q12, give additional dose this evening and hold until tomorrow check echo, last echo in 2016 showed preserved EF follow Cr and electrolytes daily weights, monitor I/O's, barreto placed continue Losartan, continue to hold BB for time being check BNP tomorrow - Low normal potassium: measured at 3.6 today will give 20mEq of KCl now and start BID dosing anticipate it going down with Lasix - HTN: better controlled now on Losartan, Norvasc and Lasix - CAD: minimal elevation in troponin, all at 0.1 no chest pain, no EKG changes hold on checking any further troponin levels follow up echo continue Plavix and Lipitor - Falls at home: precautions, check PT/OT PD - stable. Continue home Sinemet and Azilect Overactive bladder - stable. Continue home toteridone barreto placed due to incontinence with diuresis Chronic constipation - bowel regimen with Colace 100mg po BID PRN Heparin for DVT ppx Code - DNR per discussion with patient and family still requiring diuresis, will make full admit since he will require two midnights
--- NOTE | 2017-08-26 18:31 | ECHOCARDIOGRAM REPORT ---
*NOTICE TO RECEIVING LIBERTARIAN AGENCY This information is strictly Confidential and protected under [place] law. [place] law prohibits you from making any further disclosure of this information unless further disclosure is expressly permitted by the written consent of the person to whom it pertains or is authorized by law. A general authorization for the release of medical or other information is not sufficient for this purpose. Hospital accepts no responsibility if the information is made available to any other person, INCLUDING THE PATIENT. Interpretation Summary * Name: CHARLI REIS Study Date: 08/26/2017 01:19 PM BP: 158/80 mmHg * Patient Location: [facility] HR: 67 * : 1930 (M/d/yyyy) Gender: Male Height: 67 in * Age: 87 yrs Ethnicity: Weight: 125 lb * Ordering Physician: Kaylie Lopez * Referring Physician: Self, Referred * Performed By: Esther Castro RDCS * * Reason For Study: Congestive Heart Failure * BSA: 1.7 m2 * -- Conclusions -- * 1. Normal left ventricular size and systolic function. EF 55-60%. No regional wall motion abnormalities. Mild concentric left ventricular hypertrophy. Type 2 diastolic dysfunction. * 2. The right ventricle is mildly dilated. The right ventricular systolic function is normal as assessed by tricuspid annular plane systolic excursion (TAPSE) (normal >1.5 cm). * 3. The left atrium is severely dilated. * 4. The right atrium is moderately dilated. * 5. Sclerotic aortic valve with mild regurgitation. * 6. Moderate, anteriorly directed mitral regurgitation. * 7. [id number] tricuspid regurgitation. * 8. Mildly elevated right ventricular systolic pressure; 39mmHg. * 9. No significant change from prior study on 12/27/2016. Procedure Details * A complete two-dimensional transthoracic echocardiogram was performed (2D, M-mode, Doppler and color flow Doppler). Left Ventricle * Normal left ventricular size and systolic function. EF 55-60%. No regional wall motion abnormalities. Mild concentric left ventricular hypertrophy. Type 2 diastolic dysfunction. Right Ventricle * The right ventricle is mildly dilated. * The right ventricular systolic function is normal as assessed by tricuspid annular plane systolic excursion (TAPSE) (normal >1.5 cm). Atria * The left atrium is severely dilated. * The right atrium is moderately dilated. * There is no evidence of atrial septal defect, but resolution does not allow assessment for a patent foramen ovale. Mitral Valve * There is moderate mitral annular calcification. * There is no mitral valve stenosis. * Moderate, anteriorly directed mitral regurgitation. Tricuspid Valve * The tricuspid valve is not well visualized, but is grossly normal. * There is no tricuspid stenosis. * There is mild to moderate tricuspid regurgitation. Aortic Valve * The aortic valve is trileaflet. * Sclerotic aortic valve without significant stenosis. * Mild aortic regurgitation. Pulmonic Valve * The pulmonic valve is not well seen, but is grossly normal. * There is no pulmonic valvular stenosis. * Mild pulmonic valvular regurgitation. Great Vessels * Borderline aortic root dilatation. Pericardium/Pleural * Trace pericardial effusion. Great Vessels * Normal IVC size. MMode 2D Measurements and Calculations IVSd 1.2 cm IVSs 1.2 cm LVIDd 4.7 cm LVIDs 3.6 cm LVPWd 1.3 cm LVPWs 2.1 cm IVS/LVPW 0.93 FS 22.7 % EDV(Teich) 100.7 ml ESV(Teich) 54.7 ml EF(Teich) 45.6 % EDV(cubed) 101.7 ml ESV(cubed) 47.0 ml EF(cubed) 53.8 % % IVS thick -1.21 % % LVPW thick 58.8 % LV mass(C)d 224.6 grams LV mass(C)dI 135.7 grams/m\S\2 LV mass(C)s 232.2 grams LV mass(C)sI 140.2 grams/m\S\2 SV(Teich) 46.0 ml SI(Teich) 27.8 ml/m\S\2 SV(cubed) 54.7 ml SI(cubed) 33.0 ml/m\S\2 Ao root diam 3.9 cm Ao root area 12.0 cm\S\2 ACS 1.4 cm LA dimension 4.7 cm asc Aorta Diam 3.3 cm LA/Ao 1.2 LVOT diam 2.2 cm LVOT area 3.8 cm\S\2 LVAd ap4 32.8 cm\S\2 LVLd ap4 8.6 cm EDV(MOD-sp4) 104.8 ml EDV(sp4-el) 106.5 ml LVAs ap4 20.3 cm\S\2 LVLs ap4 7.7 cm ESV(MOD-sp4) 45.0 ml ESV(sp4-el) 45.7 ml EF(MOD-sp4) 57.1 % EF(sp4-el) 57.1 % LVAd ap2 39.7 cm\S\2 LVLd ap2 9.4 cm EDV(MOD-sp2) 140.2 ml EDV(sp2-el) 142.0 ml LVAs ap2 20.1 cm\S\2 LVLs ap2 8.2 cm ESV(MOD-sp2) 46.6 ml ESV(sp2-el) 41.7 ml EF(MOD-sp2) 66.7 % EF(sp2-el) 70.6 % LVLd %diff 8.9 % EDV(MOD-bp) 128.0 ml LVLs %diff 6.5 % ESV(MOD-bp) 46.3 ml EF(MOD-bp) 63.9 % SV(MOD-sp4) 59.8 ml SI(MOD-sp4) 36.1 ml/m\S\2 SV(MOD-sp2) 93.6 ml SI(MOD-sp2) 56.5 ml/m\S\2 SV(MOD-bp) 81.8 ml SI(MOD-bp) 49.4 ml/m\S\2 SV(sp4-el) 60.8 ml SI(sp4-el) 36.7 ml/m\S\2 SV(sp2-el) 100.3 ml SI(sp2-el) 60.6 ml/m\S\2 Doppler Measurements and Calculations MV E max julia 127.1 cm/sec MV A max julia 89.2 cm/sec MV E/A 1.4 MV dec time 0.16 sec Ao V2 max 202.7 cm/sec Ao max PG 16.5 mmHg Ao max PG (full) 12.8 mmHg Ao V2 mean 122.7 cm/sec Ao mean PG 7.2 mmHg Ao mean PG (full) 5.7 mmHg Ao V2 VTI 44.9 cm YOLI(I,A) 1.8 cm\S\2 YOLI(I,D) 1.8 cm\S\2 YOLI(V,A) 1.8 cm\S\2 YOLI(V,D) 1.8 cm\S\2 AI max julia 380.1 cm/sec AI max PG 58.2 mmHg AI dec slope 231.1 cm/sec\S\2 AI P1/2t 481.8 msec LV V1 max PG 3.7 mmHg LV V1 mean PG 1.5 mmHg LV V1 max 96.0 cm/sec LV V1 mean 56.8 cm/sec LV V1 VTI 21.0 cm SV(Ao) 537.8 ml SI(Ao) 324.8 ml/m\S\2 SV(LVOT) 78.9 ml SI(LVOT) 47.6 ml/m\S\2 PA V2 max 95.0 cm/sec PA max PG 3.6 mmHg PI max julia 241.6 cm/sec PI max PG 23.4 mmHg PI dec slope 128.5 cm/sec\S\2 PI P1/2t 550.7 msec TR max julia 300.8 cm/sec RVSP(TR) 39.2 mmHg RAP systole 3.0 mmHg
[2017-08-26] MEDS: POTASSIUM CHLORIDE 20 MEQ TABCR PO SCH (20:36)
[2017-08-26] MEDS: ATORVASTATIN 20 MG TAB PO SCH (20:36)
[2017-08-26] MEDS: HydrALAZINE HCL 20 MG/ML VIAL IV. PRN (23:41)
[2017-08-27 00:23] VITALS: BP 187/73; PULSE 59
[2017-08-27] MEDS: HEPARIN SOD 5000 UNIT/0.5 ML CARP SQ SCH ×3 (01:50→17:55)
[2017-08-27 01:51] VITALS: BP 161/60; PULSE 59
[2017-08-27 07:56] VITALS: BP 212/90; PULSE 70; TEMP 36.5; O2SAT 96
[2017-08-27 08:00] VITALS: O2SAT 96
[2017-08-27] MEDS: AZILECT~ORDER AWAITING ACTION SCH ×2 (08:00→15:37)
[2017-08-27 08:52] LABS: CALCIUM 8.7 mg/dl (8.5-10.1); CREATININE 2.69 mg/dl (0.60-1.40); POTASSIUM 4.1 mmol/L (3.5-5.1)
[2017-08-27] MEDS ORDERED: ISOSORBIDE MONONITRATE 30 MG TABCR PO ONE (09:15)
[2017-08-27 09:41] VITALS: BP 162/79; PULSE 68
[2017-08-27] MEDS: LOSARTAN POTASSIUM 50 MG TAB PO SCH (09:43)
[2017-08-27] MEDS: CARBIDOPA/LEVODOPA 25/100MG EXT REL TAB PO SCH ×3 (09:43→20:48)
[2017-08-27] MEDS: AMLODIPINE BESYLATE 5 MG TAB PO SCH (09:44)
[2017-08-27] MEDS: CLOPIDOGREL BISULFATE 75 MG TAB PO SCH (09:44)
[2017-08-27] MEDS: POTASSIUM CHLORIDE 20 MEQ TABCR PO SCH ×2 (09:44→20:49)
[2017-08-27] MEDS: TOLTERODINE TARTRATE 2 MG TAB PO SCH ×2 (09:44→20:48)
[2017-08-27] MEDS ORDERED: FUROSEMIDE INJ 40 MG in SYRINGE 0 ML IV SCH (09:45)
[2017-08-27] MEDS: TRAVOPROST Z 0.004% OPH SOLN 2.5 ML BTL OP SCH (09:45)
[2017-08-27 14:50] VITALS: BP 101/63; PULSE 59; TEMP 36.4; O2SAT 99
--- NOTE | 2017-08-27 14:55 | Progress Note ---
Subjective Date of Service: Aug 27, 2017. Subjective Pt evaluation today including: conversation w/ patient, physical exam, lab review, review of inpatient medication list Pain: no pain PO Intake: adequate Voiding: barreto catheter in place patient doing well, diuresing, breathing better, less leg edema eating well -5200cc for admission reviewed labs, Cr 2.69, K normal BNP is down to 15k from 22k BP markedly elevated with systolic in 190's past 24 hours added Imdur and Hydralazine, pressure was low in 100's systolic in early afternoon Problem List Medical Problems: (1) CHF (congestive heart failure) Status: Acute (2) Chronic kidney disease (CKD) Status: Acute (3) Chronic renal disease Status: Acute (4) Elevated troponin Status: Acute (5) Elevated troponin Status: Acute (6) Epigastric abdominal pain Status: Acute Review of Systems Constitutional: + weakness, + fatigue Respiratory: + dyspnea on exertion Cardiac: + edema All Other Systems: Reviewed and Negative Medications Current Inpatient Medications Medications (Trade) Dose Ordered Sig/Janet Route Start Time Stop Time Status Last Admin Dose Admin Atorvastatin Calcium (Lipitor Tab) 20 mg QPM PO 08/25/17 21:00 09/24/17 20:59 08/26/17 20:36 20 MG Carbidopa/Levodopa (Sinemet Cr 25/ 100MG Tab) 3 tab TID PO 08/25/17 21:00 09/24/17 20:59 08/27/17 09:43 3 TAB Clopidogrel Bisulfate (plAVix TAB) 75 mg DAILY PO 08/26/17 08:00 09/25/17 08:59 08/27/17 09:44 75 MG Tolterodine Tartrate (Detrol Tab) 2 mg BID PO 08/25/17 21:00 09/24/17 20:59 08/27/17 09:44 2 MG Travoprost (Travatan Z) 1 drops QAM OP 08/26/17 08:00 09/25/17 08:59 08/27/17 09:45 1 DROPS Miscellaneous Information (Order Awaiting Action) 1 ea QS N/A 08/25/17 20:45 09/24/17 20:44 Losartan Potassium (coZAAR TAB) 100 mg QAM PO 08/26/17 08:00 09/25/17 08:59 08/27/17 09:43 100 MG Heparin Sodium (Porcine) (Heparin Sq 5000 Unit/0.5ml) 5,000 unit Q8H SQ 08/25/17 18:00 09/24/17 17:59 08/27/17 09:55 5,000 UNIT Acetaminophen (Tylenol Tab) 650 mg Q4H PRN PO 08/25/17 20:00 09/24/17 19:59 Al Hydrox/Mg Hydrox/Simethicone (Maalox Max Susp) 15 ml Q4H PRN PO 08/25/17 20:00 09/24/17 19:59 Amlodipine Besylate (Norvasc Tab) 2.5 mg QAM PO 08/26/17 08:00 09/25/17 08:59 08/27/17 09:44 2.5 MG Docusate Sodium (coLACE CAP) 100 mg BID PRN PO 08/25/17 21:00 09/24/17 20:59 08/26/17 08:41 100 MG Hydralazine HCl (HydrALAZINE INJ) 5 mg Q4 PRN IV. 08/25/17 21:00 09/24/17 20:59 08/26/17 23:41 5 MG Potassium Chloride (Klor-Con Tab) 20 meq BID PO 08/26/17 20:00 09/25/17 19:59 08/27/17 09:44 20 MEQ Hydralazine HCl (Apresoline Tab) 50 mg TID PO 08/27/17 14:00 09/26/17 13:59 Isosorbide Mononitrate (Imdur Ext Rel Tab) 30 mg QAM PO 08/28/17 08:00 09/27/17 07:59 Furosemide 40 mg/ Syringe 4 ml @ 4 mls/min 1600 ONCE IV 08/27/17 16:00 08/27/17 16:01 Objective Vital Signs Date Time Temp Pulse Resp B/P (MAP) Pulse Ox O2 Delivery O2 Flow Rate FiO2 08/27/17 09:41 68 162/79 (106) 08/27/17 08:00 96 Nasal Cannula 2.0 08/27/17 07:56 36.5 70 20 212/90 (130) 96 Nasal Cannula 2.0 08/27/17 01:51 59 161/60 (93) 08/27/17 00:23 59 187/73 (111) 08/26/17 23:40 Nasal Cannula 2.0 08/26/17 23:38 61 189/75 (113) 08/26/17 23:38 185/70 (108) 08/26/17 23:35 36.4 59 22 190/68 (108) 100 Nasal Cannula 2.0 08/26/17 16:30 Nasal Cannula 2.0 08/26/17 15:12 36.2 56 20 203/72 (115) 93 Nasal Cannula 2.0 Physical Exam General Appearance: WD/WN, no apparent distress Eyes: normal inspection, EOMI, sclerae normal ENT: normal ENT inspection, hearing grossly normal, pharynx normal Neck: supple, no adenopathy, no JVD, trachea midline Respiratory/Chest: chest non-tender, lungs clear, normal breath sounds, no respiratory distress, no accessory muscle use Cardiovascular: regular rate, rhythm, no gallop, no JVD, no murmur Abdomen: normal bowel sounds, non tender, soft, no organomegaly Extremities: normal range of motion, non-tender, normal inspection, no calf tenderness, pelvis stable, + pedal edema (trace in lower legs, less pitting than yesterday) Neurologic/Psychiatric: veterinarian poultry II-XII nml as tested, alert, normal mood/affect, oriented x 3, + motor weakness Skin: normal color, warm/dry, no rash Laboratory Results Last 24 Hours Test 08/27/17 08:03 Sodium Level 141 mmol/L Potassium Level 4.1 mmol/L Chloride Level 107 mmol/L Carbon Dioxide Level 29 mmol/L Anion Gap 6.0 mmol/L Blood Urea Nitrogen 65 mg/dl Creatinine 2.69 mg/dl Est Creatinine Clear Calc Drug Dose 15.9 ml/min Estimated GFR () 23.6 Estimated GFR (Non- 20.4 BUN/Creatinine Ratio 24.1 Random Glucose 109 mg/dl Calcium Level 8.7 mg/dl Magnesium Level 2.3 mg/dl Pro-B-Type Natriuretic Peptide 20939 pg/ml Assessment and Plan 87yo male presenting with progressive bilateral LE edema, weakness, increased frequency of falls. - Acute on chronic diastolic heart failure diuresing well with Lasix 40mg IV q12 echo: EF is 55-60%, severely dilated LA, mild RA dilation, elevated pulm pressures Cr is stable at 2.6 daily weights, monitor I/O's (-5200cc) continue Losartan, continue to hold BB for time being BNP down to 15k from 22k, will repeat tomorrow - Low normal potassium: measured at 3.6 yesterday continue KCl BID dosing K is 4.1 today - HTN: extremely elevated again last night and this morning systolic pressures in the 190's despite home medications and Lasix ordered Imdur 30mg this AM and Hydralazine 50mg TID pressure was 100's systolic in the afternoon, stop Hydralazine but continue Imdur tomorrow AM - CAD: minimal elevation in troponin, all at 0.1 no chest pain, no EKG changes hold on checking any further troponin levels no wall motion abnormalities on echo continue Plavix and Lipitor - Falls at home: precautions, check PT/OT PD - stable. Continue home Sinemet and Azilect Overactive bladder - stable. Continue home toteridone barrteo placed due to incontinence with diuresis Chronic constipation - bowel regimen with Colace 100mg po BID PRN Heparin for DVT ppx Code - DNR per discussion with patient and family still requiring diuresis, will make full admit since he will require two midnights repeat labs in the AM
[2017-08-27] MEDS ORDERED: FUROSEMIDE INJ 40 MG in SYRINGE 0 ML IV ONE (16:00)
[2017-08-27] MEDS: ATORVASTATIN 20 MG TAB PO SCH (20:48)
[2017-08-28] VITALS: BP 153/71; PULSE 62; TEMP 36.7; O2SAT 97
[2017-08-28] MEDS: HEPARIN SOD 5000 UNIT/0.5 ML CARP SQ SCH ×3 (02:00→17:38)
[2017-08-28 07:32] VITALS: BP 185/78; PULSE 65; TEMP 36.4; O2SAT 94
[2017-08-28 08:23] LABS: BASO % 0.2 %; BASO ABS # 0.01 K/uL (0-0.2); EOS % 2.6 %; EOS ABS # 0.12 K/uL (0-0.5); HEMATOCRIT 29.3 % (42-52); HEMOGLOBIN 9.2 g/dL (14.0-18.0); IG# 0.01 K/uL (0.00-0.02); LYMPH % 18.7 %; LYMPH ABS # 0.86 K/uL (1.2-3.4); MEAN CELL VOLUME 89.1 fL (80-100); MEAN CORPUSCULAR HGB CONC 31.4 g/dl (32-36); MEAN PLATELET VOLUME 10.6 fL (7.4-10.4); MONO % 8.3 %; MONO ABS # 0.38 K/uL (0.11-0.59); NEUT ABS # 3.21 K/uL (1.4-6.5); PLATELET COUNT 147 K/uL (130-400); RED CELL DISTRIBUTION WIDTH SD 48.8 fL (36.4-46.3); WHITE BLOOD COUNT 4.59 K/uL (4.8-10.8)
[2017-08-28] MEDS: AZILECT~ORDER AWAITING ACTION SCH ×3 (08:42→15:42)
[2017-08-28] MEDS: ISOSORBIDE MONONITRATE 30 MG TABCR PO SCH (08:43)
[2017-08-28] MEDS: CLOPIDOGREL BISULFATE 75 MG TAB PO SCH (08:43)
[2017-08-28] MEDS: LOSARTAN POTASSIUM 50 MG TAB PO SCH (08:43)
[2017-08-28] MEDS: TOLTERODINE TARTRATE 2 MG TAB PO SCH ×2 (08:44→20:24)
[2017-08-28] MEDS: POTASSIUM CHLORIDE 20 MEQ TABCR PO SCH (08:44)
[2017-08-28] MEDS: AMLODIPINE BESYLATE 5 MG TAB PO SCH (08:45)
[2017-08-28] MEDS: CARBIDOPA/LEVODOPA 25/100MG EXT REL TAB PO SCH ×3 (08:46→20:24)
[2017-08-28] MEDS: TRAVOPROST Z 0.004% OPH SOLN 2.5 ML BTL OP SCH (08:47)
[2017-08-28 08:53] LABS: CALCIUM 8.2 mg/dl (8.5-10.1); CREATININE 2.92 mg/dl (0.60-1.40); POTASSIUM 4.2 mmol/L (3.5-5.1)
[2017-08-28 11:57] VITALS: BP 115/59; PULSE 59; TEMP 36.4; O2SAT 98
--- NOTE | 2017-08-28 15:03 | Progress Note ---
Subjective Date of Service: Aug 28, 2017. Subjective Pt evaluation today including: conversation w/ patient, physical exam, lab review, review of inpatient medication list Pain: no pain PO Intake: adequate Voiding: barreto catheter in place patient breathing well, eating well, no new issues reviewed labs, Cr up to 2.9 today - 6300cc for the admission weights inaccurate certainly less edema in legs he is open to going to rehab, requesting [facility] Problem List Medical Problems: (1) CHF (congestive heart failure) Status: Acute (2) Chronic kidney disease (CKD) Status: Acute (3) Chronic renal disease Status: Acute (4) Elevated troponin Status: Acute (5) Elevated troponin Status: Acute (6) Epigastric abdominal pain Status: Acute Review of Systems Constitutional: + weakness, + fatigue Respiratory: + dyspnea on exertion Neurologic: + weakness, + balance problems All Other Systems: Reviewed and Negative Medications Current Inpatient Medications Medications (Trade) Dose Ordered Sig/Janet Route Start Time Stop Time Status Last Admin Dose Admin Atorvastatin Calcium (Lipitor Tab) 20 mg QPM PO 08/25/17 21:00 09/24/17 20:59 08/27/17 20:48 20 MG Carbidopa/Levodopa (Sinemet Cr 25/ 100MG Tab) 3 tab TID PO 08/25/17 21:00 09/24/17 20:59 08/28/17 14:34 3 TAB Clopidogrel Bisulfate (plAVix TAB) 75 mg DAILY PO 08/26/17 08:00 09/25/17 08:59 08/28/17 08:43 75 MG Tolterodine Tartrate (Detrol Tab) 2 mg BID PO 08/25/17 21:00 09/24/17 20:59 08/28/17 08:44 2 MG Travoprost (Travatan Z) 1 drops QAM OP 08/26/17 08:00 09/25/17 08:59 08/28/17 08:47 1 DROPS Miscellaneous Information (Order Awaiting Action) 1 ea QS N/A 08/25/17 20:45 09/24/17 20:44 Losartan Potassium (coZAAR TAB) 100 mg QAM PO 08/26/17 08:00 09/25/17 08:59 08/28/17 08:43 100 MG Heparin Sodium (Porcine) (Heparin Sq 5000 Unit/0.5ml) 5,000 unit Q8H SQ 3/20/18 18:00 09/24/17 17:59 08/28/17 10:05 5,000 UNIT Acetaminophen (Tylenol Tab) 650 mg Q4H PRN PO 08/25/17 20:00 09/24/17 19:59 Al Hydrox/Mg Hydrox/Simethicone (Maalox Max Susp) 15 ml Q4H PRN PO 08/25/17 20:00 09/24/17 19:59 Amlodipine Besylate (Norvasc Tab) 2.5 mg QAM PO 08/26/17 08:00 09/25/17 08:59 08/28/17 08:45 2.5 MG Docusate Sodium (coLACE CAP) 100 mg BID PRN PO 08/25/17 21:00 09/24/17 20:59 08/26/17 08:41 100 MG Hydralazine HCl (HydrALAZINE INJ) 5 mg Q4 PRN IV. 08/25/17 21:00 09/24/17 20:59 08/26/17 23:41 5 MG Isosorbide Mononitrate (Imdur Ext Rel Tab) 30 mg QAM PO 08/28/17 08:00 09/27/17 07:59 08/28/17 08:43 30 MG Objective Vital Signs Date Time Temp Pulse Resp B/P (MAP) Pulse Ox O2 Delivery O2 Flow Rate FiO2 08/28/17 11:57 36.4 59 18 115/59 (77) 98 Nasal Cannula 2.0 08/28/17 07:32 36.4 65 20 185/78 (113) 94 Nasal Cannula 2.0 08/28/17 07:31 Nasal Cannula 2.0 08/28/17 00:00 97 Nasal Cannula 2.0 08/28/17 00:00 36.7 62 18 153/71 (98) 97 2.0 08/27/17 16:00 Nasal Cannula 2.0 Physical Exam General Appearance: WD/WN, no apparent distress Eyes: normal inspection, EOMI, sclerae normal ENT: normal ENT inspection, hearing grossly normal, pharynx normal Neck: supple, no adenopathy, no JVD, trachea midline Respiratory/Chest: chest non-tender, lungs clear, normal breath sounds, no respiratory distress, no accessory muscle use Cardiovascular: regular rate, rhythm, no edema, no gallop, no JVD, no murmur Abdomen: normal bowel sounds, non tender, soft, no organomegaly Extremities: normal range of motion, non-tender, normal inspection, no pedal edema, no calf tenderness, normal capillary refill, pelvis stable 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, alert, normal mood/affect, oriented x 3, + abnormal gait, + motor weakness Skin: warm/dry, no rash, + pertinent finding (venous stasis changes bilaterally ) Laboratory Results Last 24 Hours Test 08/28/17 08:14 White Blood Count 4.59 K/uL Red Blood Count 3.29 M/uL Hemoglobin 9.2 g/dL Hematocrit 29.3 % Mean Corpuscular Volume 89.1 fL Mean Corpuscular Hemoglobin 28.0 pg Mean Corpuscular Hemoglobin Concent 31.4 g/dl Platelet Count 147 K/uL Mean Platelet Volume 10.6 fL Neutrophils (%) (Auto) 70.0 % Lymphocytes (%) (Auto) 18.7 % Monocytes (%) (Auto) 8.3 % Eosinophils (%) (Auto) 2.6 % Basophils (%) (Auto) 0.2 % Neutrophils # (Auto) 3.21 K/uL Lymphocytes # (Auto) 0.86 K/uL Monocytes # (Auto) 0.38 K/uL Eosinophils # (Auto) 0.12 K/uL Basophils # (Auto) 0.01 K/uL RDW Standard Deviation 48.8 fL RDW Coefficient of Variation 15.0 % Immature Granulocyte % (Auto) 0.2 % Immature Granulocyte # (Auto) 0.01 K/uL Sodium Level 143 mmol/L Potassium Level 4.2 mmol/L Chloride Level 108 mmol/L Carbon Dioxide Level 28 mmol/L Anion Gap 6.0 mmol/L Blood Urea Nitrogen 66 mg/dl Creatinine 2.92 mg/dl Est Creatinine Clear Calc Drug Dose 14.3 ml/min Estimated GFR () 21.4 Estimated GFR (Non- 18.4 BUN/Creatinine Ratio 22.6 Random Glucose 104 mg/dl Calcium Level 8.2 mg/dl Magnesium Level 2.3 mg/dl Pro-B-Type Natriuretic Peptide 75590 pg/ml Assessment and Plan 87yo male presenting with progressive bilateral LE edema, weakness, increased frequency of falls. - Acute on chronic diastolic heart failure diuresed well with Lasix 40mg IV q12 for two days echo: EF is 55-60%, severely dilated LA, mild RA dilation, elevated pulm pressures Cr up slightly at 2.9 with diuresis daily weights, monitor I/O's (-6300cc) continue Losartan, continue to hold BB for time being, may just continue to hold on discharge with HR being low BNP down to 11k from 22k, will repeat tomorrow - Low normal potassium: measured at 3.6 on 08/26 stop KCl K is 4.2 today - HTN: better controlled today on Losartan, Norvasc and Imdur - CAD: minimal elevation in troponin, all at 0.1 no chest pain, no EKG changes hold on checking any further troponin levels no wall motion abnormalities on echo continue Plavix and Lipitor - Falls at home: precautions, check PT/OT needs rehab, looking into [facility] PD - stable. Continue home Sinemet and Azilect Overactive bladder - stable. Continue home toteridone barreto placed due to incontinence with diuresis will d/c barreto today Chronic constipation - bowel regimen with Colace 100mg po BID PRN Heparin for DVT ppx Code - DNR per discussion with patient and family euvolemic on exam, acute heart failure resolved, looking into rehab placement
[2017-08-28 15:05] VITALS: BP 133/63; PULSE 54; O2SAT 98
[2017-08-28] MEDS: ATORVASTATIN 20 MG TAB PO SCH (20:24)
[2017-08-28 22:33] VITALS: BP 166/65; PULSE 58; TEMP 36.5; O2SAT 99
[2017-08-29] VITALS (8 sets, daily range): BP systolic 94–208; BP diastolic 48–73; PULSE 51–86; TEMP 36.4–36.8; O2SAT 95–98
[2017-08-29] MEDS: HEPARIN SOD 5000 UNIT/0.5 ML CARP SQ SCH ×3 (03:58→18:47)
[2017-08-29] MEDS: AZILECT~ORDER AWAITING ACTION SCH ×3 (08:00→15:34)
[2017-08-29 09:03] LABS: BASO % 0.4 %; BASO ABS # 0.02 K/uL (0-0.2); EOS % 3.5 %; EOS ABS # 0.16 K/uL (0-0.5); HEMATOCRIT 32.9 % (42-52); HEMOGLOBIN 10.2 g/dL (14.0-18.0); IG# 0.01 K/uL (0.00-0.02); LYMPH % 20.5 %; LYMPH ABS # 0.94 K/uL (1.2-3.4); MEAN CELL VOLUME 90.6 fL (80-100); MEAN CORPUSCULAR HEMOGLOBIN 28.1 pg (25-34); MEAN PLATELET VOLUME 10.9 fL (7.4-10.4); MONO % 5.9 %; MONO ABS # 0.27 K/uL (0.11-0.59); NEUT % 69.5 %; NEUT ABS # 3.18 K/uL (1.4-6.5); PLATELET COUNT 158 K/uL (130-400); RED CELL DISTRIBUTION WIDTH CV 14.8 % (11.5-14.5); RED CELL DISTRIBUTION WIDTH SD 49.1 fL (36.4-46.3); WHITE BLOOD COUNT 4.58 K/uL (4.8-10.8)
[2017-08-29] MEDS: CARBIDOPA/LEVODOPA 25/100MG EXT REL TAB PO SCH ×3 (09:23→20:05)
[2017-08-29] MEDS: ISOSORBIDE MONONITRATE 30 MG TABCR PO SCH (09:23)
[2017-08-29] MEDS: TOLTERODINE TARTRATE 2 MG TAB PO SCH ×2 (09:23→20:05)
[2017-08-29] MEDS: CLOPIDOGREL BISULFATE 75 MG TAB PO SCH (09:23)
[2017-08-29] MEDS: AMLODIPINE BESYLATE 5 MG TAB PO SCH (09:24)
[2017-08-29] MEDS: LOSARTAN POTASSIUM 50 MG TAB PO SCH (09:24)
[2017-08-29] MEDS: TRAVOPROST Z 0.004% OPH SOLN 2.5 ML BTL OP SCH (09:25)
[2017-08-29 09:28] LABS: CALCIUM 8.5 mg/dl (8.5-10.1); CREATININE 2.7 mg/dl (0.60-1.40); POTASSIUM 4.3 mmol/L (3.5-5.1)
--- NOTE | 2017-08-29 14:17 | Progress Note ---
Subjective Date of Service: Aug 29, 2017. Subjective Pt evaluation today including: conversation w/ patient, conversation w/ family , physical exam, lab review, review of inpatient medication list Pain: no pain PO Intake: adequate Voiding: barreto catheter in place patient was lethargic sitting up in chair, fell asleep and slumped forward RN got him back in bed, awakens easily but very fatigued, unsure if he slept well last night he denies chest pain, dyspnea, edema, has an appetite updated patient's son and at the bedside, discussed discharge plan for rehab reviewed labs, Cr stable at 2.7, K is normal, Hb stable at 10 BP was high this morning 180-190 systolic prior to morning medications, lower at noon but not hypotensive may be too sensitive to Imdur, will raise Norvasc dose instead Problem List Medical Problems: (1) CHF (congestive heart failure) Status: Acute (2) Chronic kidney disease (CKD) Status: Acute (3) Chronic renal disease Status: Acute (4) Elevated troponin Status: Acute (5) Elevated troponin Status: Acute (6) Epigastric abdominal pain Status: Acute Review of Systems Constitutional: + weakness, + fatigue Respiratory: + dyspnea on exertion Neurologic: + weakness, + balance problems All Other Systems: Reviewed and Negative Medications Current Inpatient Medications Medications (Trade) Dose Ordered Sig/Janet Route Start Time Stop Time Status Last Admin Dose Admin Atorvastatin Calcium (Lipitor Tab) 20 mg QPM PO 08/25/17 21:00 09/24/17 20:59 08/28/17 20:24 20 MG Carbidopa/Levodopa (Sinemet Cr 25/ 100MG Tab) 3 tab TID PO 08/25/17 21:00 09/24/17 20:59 08/29/17 09:23 3 TAB Clopidogrel Bisulfate (plAVix TAB) 75 mg DAILY PO 08/26/17 08:00 09/25/17 08:59 08/29/17 09:23 75 MG Tolterodine Tartrate (Detrol Tab) 2 mg BID PO 08/25/17 21:00 09/24/17 20:59 08/29/17 09:23 2 MG Travoprost (Travatan Z) 1 drops QAM OP 08/26/17 08:00 09/25/17 08:59 08/29/17 09:25 1 DROPS Miscellaneous Information (Order Awaiting Action) 1 ea QS N/A 08/25/17 20:45 09/24/17 20:44 Losartan Potassium (coZAAR TAB) 100 mg QAM PO 08/26/17 08:00 09/25/17 08:59 08/29/17 09:24 100 MG Heparin Sodium (Porcine) (Heparin Sq 5000 Unit/0.5ml) 5,000 unit Q8H SQ 08/25/17 18:00 09/24/17 17:59 08/29/17 09:34 5,000 UNIT Acetaminophen (Tylenol Tab) 650 mg Q4H PRN PO 08/25/17 20:00 09/24/17 19:59 Al Hydrox/Mg Hydrox/Simethicone (Maalox Max Susp) 15 ml Q4H PRN PO 08/25/17 20:00 09/24/17 19:59 Amlodipine Besylate (Norvasc Tab) 2.5 mg QAM PO 08/26/17 08:00 09/25/17 08:59 08/29/17 09:24 2.5 MG Docusate Sodium (coLACE CAP) 100 mg BID PRN PO 08/25/17 21:00 09/24/17 20:59 08/26/17 08:41 100 MG Hydralazine HCl (HydrALAZINE INJ) 5 mg Q4 PRN IV. 08/25/17 21:00 09/24/17 20:59 08/26/17 23:41 5 MG Objective Vital Signs Date Time Temp Pulse Resp B/P (MAP) Pulse Ox O2 Delivery O2 Flow Rate FiO2 08/29/17 12:49 64 20 94/48 (63) 96 Room Air 59 102/49 (66) 08/29/17 09:59 95 Room Air 08/29/17 07:41 63 191/72 (111) 95 Room Air 64 186/73 (110) 08/29/17 07:39 36.8 63 16 208/73 (118) 98 2.0 08/29/17 00:00 Nasal Cannula 2.0 08/28/17 22:33 36.5 58 18 166/65 (98) 99 Nasal Cannula 2.0 08/28/17 16:00 Nasal Cannula 2.0 08/28/17 15:05 54 20 133/63 (86) 98 Nasal Cannula 2.0 Physical Exam General Appearance: WD/WN, no apparent distress Eyes: normal inspection ENT: normal ENT inspection, hearing grossly normal, pharynx normal Neck: supple, no adenopathy, no JVD, trachea midline Respiratory/Chest: chest non-tender, lungs clear, normal breath sounds, no respiratory distress, no accessory muscle use Cardiovascular: regular rate, rhythm, no edema, no gallop, no JVD, no murmur Abdomen: normal bowel sounds, non tender, soft, no organomegaly Extremities: normal range of motion, non-tender, normal inspection, no pedal edema, no calf tenderness, pelvis stable 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, normal mood/affect, oriented x 3, + motor weakness, + pertinent finding (lethargic but wakes up easily) Skin: normal color, warm/dry, no rash Laboratory Results Last 24 Hours Test 08/29/17 08:28 08/29/17 12:42 White Blood Count 4.58 K/uL Red Blood Count 3.63 M/uL Hemoglobin 10.2 g/dL Hematocrit 32.9 % Mean Corpuscular Volume 90.6 fL Mean Corpuscular Hemoglobin 28.1 pg Mean Corpuscular Hemoglobin Concent 31.0 g/dl Platelet Count 158 K/uL Mean Platelet Volume 10.9 fL Neutrophils (%) (Auto) 69.5 % Lymphocytes (%) (Auto) 20.5 % Monocytes (%) (Auto) 5.9 % Eosinophils (%) (Auto) 3.5 % Basophils (%) (Auto) 0.4 % Neutrophils # (Auto) 3.18 K/uL Lymphocytes # (Auto) 0.94 K/uL Monocytes # (Auto) 0.27 K/uL Eosinophils # (Auto) 0.16 K/uL Basophils # (Auto) 0.02 K/uL RDW Standard Deviation 49.1 fL RDW Coefficient of Variation 14.8 % Immature Granulocyte % (Auto) 0.2 % Immature Granulocyte # (Auto) 0.01 K/uL Sodium Level 141 mmol/L Potassium Level 4.3 mmol/L Chloride Level 107 mmol/L Carbon Dioxide Level 26 mmol/L Anion Gap 8.0 mmol/L Blood Urea Nitrogen 54 mg/dl Creatinine 2.70 mg/dl Est Creatinine Clear Calc Drug Dose 15.6 ml/min Estimated GFR () 23.5 Estimated GFR (Non- 20.3 BUN/Creatinine Ratio 20.1 Random Glucose 93 mg/dl Calcium Level 8.5 mg/dl Magnesium Level 2.2 mg/dl Pro-B-Type Natriuretic Peptide 5829 pg/ml Bedside Glucose 125 mg/dl Assessment and Plan 87yo male presenting with progressive bilateral LE edema, weakness, increased frequency of falls. - Acute on chronic diastolic heart failure diuresed well with Lasix 40mg IV q12 for two days echo: EF is 55-60%, severely dilated LA, mild RA dilation, elevated pulm pressures Cr trending back down to 2.7 from 2.9 daily weights, monitor I/O's (-6700cc) continue Losartan, continue to hold BB for time being, may just continue to hold on discharge with HR being low BNP down to 5k from 22k, will check on day of discharge - Low normal potassium: measured at 3.6 on 08/26 stop KCl K is 4.3 today - HTN: elevated in the mornings with pressures in 180-190 today pressures dropped to borderline low will d/c the Imdur since that was added this admission increase Norvasc to 5mg, continue Losartan, continue to hold Lopressor - CAD: minimal elevation in troponin, all at 0.1 no chest pain, no EKG changes hold on checking any further troponin levels no wall motion abnormalities on echo continue Plavix and Lipitor - Falls at home: precautions, check PT/OT needs rehab, looking into [facility] PD - stable. Continue home Sinemet and Azilect Overactive bladder - stable. Continue home toteridone barreto placed due to incontinence with diuresis will d/c barreto tomorrow Chronic constipation - bowel regimen with Colace 100mg po BID PRN Heparin for DVT ppx Code - DNR per discussion with patient and family euvolemic on exam, acute heart failure resolved, looking into rehab placement
[2017-08-29] MEDS: ATORVASTATIN 20 MG TAB PO SCH (20:05)
[2017-08-30] MEDS: HEPARIN SOD 5000 UNIT/0.5 ML CARP SQ SCH ×3 (01:57→18:48)
[2017-08-30 07:33] LABS: CALCIUM 8.3 mg/dl (8.5-10.1); CREATININE 2.62 mg/dl (0.60-1.40); POTASSIUM 4.4 mmol/L (3.5-5.1)
[2017-08-30 07:34] LABS: PHOSPHORUS 4.2 mg/dl (2.5-4.9)
[2017-08-30 07:51] VITALS: BP_SYST 188; BP_SYST 192; BP_DIAS 66; BP_DIAS 75; PULSE 63; TEMP 36.8; O2SAT 98
[2017-08-30] MEDS: AZILECT~ORDER AWAITING ACTION SCH ×4 (08:00→23:10)
[2017-08-30 08:15] VITALS: O2SAT 98
[2017-08-30] MEDS: LOSARTAN POTASSIUM 50 MG TAB PO SCH (08:42)
[2017-08-30] MEDS: TOLTERODINE TARTRATE 2 MG TAB PO SCH ×2 (08:42→20:09)
[2017-08-30] MEDS: CLOPIDOGREL BISULFATE 75 MG TAB PO SCH (08:42)
[2017-08-30] MEDS: TRAVOPROST Z 0.004% OPH SOLN 2.5 ML BTL OP SCH (08:42)
[2017-08-30] MEDS: AMLODIPINE BESYLATE 5 MG TAB PO SCH (08:43)
[2017-08-30] MEDS: CARBIDOPA/LEVODOPA 25/100MG EXT REL TAB PO SCH ×3 (08:43→20:09)
--- NOTE | 2017-08-30 09:52 | Progress Note ---
Subjective Date of Service: Aug 30, 2017. Subjective Pt evaluation today including: conversation w/ patient, physical exam, lab review, review of inpatient medication list Pain: denies pain PO Intake: ate 50% of breakfast Voiding: no voiding problems barreto pulled this morning, patient is calmer per RN he still has some slight confusion, asked where he was but then seemed to remember he was in the hospital he denies chest pain/pressure, dyspnea, nausea discussed going to SNF for rehab, possibly as early as tomorrow per RN, very weak, 2 assist for transfers reviewed labs, Cr is 2.6, K is 4.4 Problem List Medical Problems: (1) CHF (congestive heart failure) Status: Acute (2) Chronic kidney disease (CKD) Status: Acute (3) Chronic renal disease Status: Acute (4) Elevated troponin Status: Acute (5) Elevated troponin Status: Acute (6) Epigastric abdominal pain Status: Acute Review of Systems Constitutional: + weakness, + fatigue Neurologic: + memory loss, + weakness, + balance problems All Other Systems: Reviewed and Negative Medications Current Inpatient Medications Medications (Trade) Dose Ordered Sig/Janet Route Start Time Stop Time Status Last Admin Dose Admin Atorvastatin Calcium (Lipitor Tab) 20 mg QPM PO 08/25/17 21:00 09/24/17 20:59 08/29/17 20:05 20 MG Carbidopa/Levodopa (Sinemet Cr 25/ 100MG Tab) 3 tab TID PO 08/25/17 21:00 09/24/17 20:59 08/30/17 08:43 3 TAB Clopidogrel Bisulfate (plAVix TAB) 75 mg DAILY PO 08/26/17 08:00 09/25/17 08:59 08/30/17 08:42 75 MG Tolterodine Tartrate (Detrol Tab) 2 mg BID PO 08/25/17 21:00 09/24/17 20:59 08/30/17 08:42 2 MG Travoprost (Travatan Z) 1 drops QAM OP 08/26/17 08:00 09/25/17 08:59 08/30/17 08:42 1 DROPS Miscellaneous Information (Order Awaiting Action) 1 ea QS N/A 08/25/17 20:45 09/24/17 20:44 Losartan Potassium (coZAAR TAB) 100 mg QAM PO 3/21/18 08:00 09/25/17 08:59 08/30/17 08:42 100 MG Heparin Sodium (Porcine) (Heparin Sq 5000 Unit/0.5ml) 5,000 unit Q8H SQ 08/25/17 18:00 09/24/17 17:59 08/30/17 08:47 5,000 UNIT Acetaminophen (Tylenol Tab) 650 mg Q4H PRN PO 08/25/17 20:00 09/24/17 19:59 Al Hydrox/Mg Hydrox/Simethicone (Maalox Max Susp) 15 ml Q4H PRN PO 08/25/17 20:00 09/24/17 19:59 Docusate Sodium (coLACE CAP) 100 mg BID PRN PO 08/25/17 21:00 09/24/17 20:59 08/26/17 08:41 100 MG Hydralazine HCl (HydrALAZINE INJ) 5 mg Q4 PRN IV. 08/25/17 21:00 09/24/17 20:59 08/26/17 23:41 5 MG Amlodipine Besylate (Norvasc Tab) 5 mg QAM PO 08/30/17 08:00 09/25/17 08:59 08/30/17 08:43 5 MG Objective Vital Signs Date Time Temp Pulse Resp B/P (MAP) Pulse Ox O2 Delivery O2 Flow Rate FiO2 08/30/17 08:15 98 Room Air 08/30/17 07:51 36.8 63 16 188/75 (112) 98 Room Air 192/66 (108) 08/29/17 23:00 Room Air 08/29/17 22:51 36.7 86 20 165/69 (101) 95 Room Air 08/29/17 16:00 98 Room Air 08/29/17 15:48 63 08/29/17 15:19 36.4 51 18 117/60 (79) 98 Room Air 08/29/17 12:49 64 20 94/48 (63) 96 Room Air 59 102/49 (66) 08/29/17 09:59 95 Room Air Physical Exam General Appearance: WD/WN, no apparent distress Eyes: normal inspection, EOMI, sclerae normal Neck: supple, no adenopathy, no JVD, trachea midline Respiratory/Chest: chest non-tender, lungs clear, normal breath sounds, no respiratory distress, no accessory muscle use Cardiovascular: regular rate, rhythm, no edema, no gallop, no JVD, no murmur Abdomen: normal bowel sounds, non tender, soft, no organomegaly Extremities: normal range of motion, non-tender, normal inspection, no pedal edema, no calf tenderness, normal capillary refill, pelvis stable 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, alert, normal mood/affect, oriented x 3, + abnormal gait (unsteady), + motor weakness Skin: warm/dry, no rash, + pertinent finding (venous stasis changes in lower legs bilaterally) Laboratory Results Last 24 Hours Test 08/29/17 12:42 08/30/17 06:47 Bedside Glucose 125 mg/dl Sodium Level 140 mmol/L Potassium Level 4.4 mmol/L Chloride Level 107 mmol/L Carbon Dioxide Level 26 mmol/L Anion Gap 7.0 mmol/L Blood Urea Nitrogen 63 mg/dl Creatinine 2.62 mg/dl Est Creatinine Clear Calc Drug Dose 16.3 ml/min Estimated GFR () 24.4 Estimated GFR (Non- 21.0 BUN/Creatinine Ratio 23.9 Random Glucose 97 mg/dl Calcium Level 8.3 mg/dl Phosphorus Level 4.2 mg/dl Magnesium Level 2.2 mg/dl Assessment and Plan 87yo male presenting with progressive bilateral LE edema, weakness, increased frequency of falls. - Acute on chronic diastolic heart failure diuresed well with Lasix 40mg IV q12 for two days initially echo: EF is 55-60%, severely dilated LA, mild RA dilation, elevated pulm pressures Cr trending back down to 2.6 from 2.9 two days ago daily weights, monitor I/O's (-7000cc) continue Losartan, continue to hold BB for time being, may just continue to hold on discharge with HR being low BNP down to 5k from 22k, will check again tomorrow, that will likely be his baseline - Low normal potassium: measured at 3.6 on 08/26 stop KCl K is 4.4 today - HTN: elevated in the mornings with pressures in 180-190 on 08/29 pressures dropped to borderline low in the afternoon stopped Imdur since that was added this admission increased Norvasc to 5mg, continue Losartan, continue to hold Lopressor for HR in 50-60's BP again elevated this AM at 180 and 190 systolic, prior to morning medications will trend BP later in the day - CAD: minimal elevation in troponin, all at 0.1 no chest pain, no EKG changes hold on checking any further troponin levels no wall motion abnormalities on echo continue Plavix and Lipitor - Falls at home: precautions, check PT/OT needs rehab, looking into [facility] following PD - stable. Continue home Sinemet and Azilect Overactive bladder - stable. Continue home toteridone barreto d/c on 08/30, monitor for urinary retention Chronic constipation - bowel regimen with Colace 100mg po BID PRN Heparin for DVT ppx Code - DNR per discussion with patient and family euvolemic on exam, acute heart failure resolved, looking into rehab placement, possibly tomorrow medication changes: increased Norvasc to 5mg from 2.5mg, stopped Lopressor due to bradycardia
[2017-08-30 15:43] VITALS: BP_SYST 188; BP_SYST 190; BP_DIAS 60; BP_DIAS 64; PULSE 91; TEMP 36.6; O2SAT 90
[2017-08-30 16:00] VITALS: O2SAT 90
[2017-08-30 16:19] VITALS: BP 137/65; PULSE 59
[2017-08-30] MEDS: ATORVASTATIN 20 MG TAB PO SCH (20:09)
[2017-08-30 23:00] VITALS: BP_SYST 211; BP_SYST 222; BP_DIAS 80; BP_DIAS 87; PULSE 61; TEMP 36.7; O2SAT 96
[2017-08-30] MEDS: HydrALAZINE HCL 20 MG/ML VIAL IV. PRN (23:11)
[2017-08-31 00:18] VITALS: BP 166/64; PULSE 62
[2017-08-31] MEDS: HEPARIN SOD 5000 UNIT/0.5 ML CARP SQ SCH ×3 (02:32→19:44)
[2017-08-31] MEDS: AZILECT~ORDER AWAITING ACTION SCH ×2 (02:33→15:16)
[2017-08-31] MEDS: LOSARTAN POTASSIUM 50 MG TAB PO SCH (07:44)
[2017-08-31] MEDS: CLOPIDOGREL BISULFATE 75 MG TAB PO SCH (07:44)
[2017-08-31] MEDS: AMLODIPINE BESYLATE 5 MG TAB PO SCH (07:44)
[2017-08-31] MEDS: TOLTERODINE TARTRATE 2 MG TAB PO SCH ×2 (07:44→19:41)
[2017-08-31] MEDS: CARBIDOPA/LEVODOPA 25/100MG EXT REL TAB PO SCH ×3 (07:44→19:41)
[2017-08-31] MEDS: TRAVOPROST Z 0.004% OPH SOLN 2.5 ML BTL OP SCH (07:45)
[2017-08-31 07:57] LABS: BASO % 0.2 %; BASO ABS # 0.01 K/uL (0-0.2); EOS % 3.4 %; EOS ABS # 0.16 K/uL (0-0.5); HEMATOCRIT 31.1 % (42-52); HEMOGLOBIN 9.9 g/dL (14.0-18.0); IG# 0.03 K/uL (0.00-0.02); LYMPH % 20.4 %; LYMPH ABS # 0.95 K/uL (1.2-3.4); MEAN CELL VOLUME 89.6 fL (80-100); MEAN CORPUSCULAR HEMOGLOBIN 28.5 pg (25-34); MEAN CORPUSCULAR HGB CONC 31.8 g/dl (32-36); MEAN PLATELET VOLUME 10.3 fL (7.4-10.4); MONO % 8.6 %; NEUT % 66.8 %; PLATELET COUNT 155 K/uL (130-400); RED CELL DISTRIBUTION WIDTH SD 49.1 fL (36.4-46.3); WHITE BLOOD COUNT 4.65 K/uL (4.8-10.8)
[2017-08-31 08:13] VITALS: BP 177/69; PULSE 54; TEMP 36.5; O2SAT 98
[2017-08-31 08:27] LABS: CALCIUM 8.6 mg/dl (8.5-10.1); CREATININE 2.55 mg/dl (0.60-1.40); POTASSIUM 4.3 mmol/L (3.5-5.1)
[2017-08-31] MEDS ORDERED: FUROSEMIDE 20 MG TAB PO ONE (09:01)
[2017-08-31] MEDS ORDERED: DOCUSATE SODIUM 100 MG/10 ML UDC PO STA (10:13)
[2017-08-31 10:45] VITALS: Ht 170.2 cm; Wt 58.4 kg
[2017-08-31 13:59] VITALS: BP 177/66; PULSE 57; O2SAT 96
--- NOTE | 2017-08-31 14:46 | Hospitalist Progress Note ---
Hospitalist Progress Note Date of Service Aug 31, 2017. Subjective Pt evaluation today including: conversation w/ patient, physical exam, chart review, lab review, review of studies, review of inpatient medication list Patient seen and evaluated. No acute events overnight. BP remains elevated and will continue to monitor - can accept slightly higher readings to prevent orthostasis however having some systolic readings in the 200 + Will add Lasix 10 mg daily which may give a little BP control and help with volume management. Patient verbalized no complaints. Currently at -7.3 L balance - appears euvolemic. Constitutional: No fever, No chills Respiratory: No cough, No shortness of breath Cardiovascular: No chest pain Abdomen: No pain, No nausea, No vomiting Male : No dysuria Medications Current Inpatient Medications Medications (Trade) Dose Ordered Sig/Janet Route Start Time Stop Time Status Last Admin Dose Admin Atorvastatin Calcium (Lipitor Tab) 20 mg QPM PO 08/25/17 21:00 09/24/17 20:59 08/30/17 20:09 20 MG Carbidopa/Levodopa (Sinemet Cr 25/ 100MG Tab) 3 tab TID PO 08/25/17 21:00 09/24/17 20:59 08/31/17 14:10 3 TAB Clopidogrel Bisulfate (plAVix TAB) 75 mg DAILY PO 08/26/17 08:00 09/25/17 08:59 08/31/17 07:44 75 MG Tolterodine Tartrate (Detrol Tab) 2 mg BID PO 08/25/17 21:00 09/24/17 20:59 08/31/17 07:44 2 MG Travoprost (Travatan Z) 1 drops QAM OP 08/26/17 08:00 09/25/17 08:59 08/31/17 07:45 1 DROPS Miscellaneous Information (Order Awaiting Action) 1 ea QS N/A 08/25/17 20:45 09/24/17 20:44 Losartan Potassium (coZAAR TAB) 100 mg QAM PO 08/26/17 08:00 09/25/17 08:59 08/31/17 07:44 100 MG Heparin Sodium (Porcine) (Heparin Sq 5000 Unit/0.5ml) 5,000 unit Q8H SQ 08/25/17 18:00 09/24/17 17:59 08/31/17 09:25 5,000 UNIT Acetaminophen (Tylenol Tab) 650 mg Q4H PRN PO 08/25/17 20:00 09/24/17 19:59 Al Hydrox/Mg Hydrox/Simethicone (Maalox Max Susp) 15 ml Q4H PRN PO 08/25/17 20:00 09/24/17 19:59 Docusate Sodium (coLACE CAP) 100 mg BID PRN PO 08/25/17 21:00 09/24/17 20:59 08/26/17 08:41 100 MG Amlodipine Besylate (Norvasc Tab) 5 mg QAM PO 08/30/17 08:00 09/25/17 08:59 08/31/17 07:44 5 MG Hydralazine HCl (HydrALAZINE INJ) 10 mg Q4 PRN IV. 08/31/17 08:30 09/24/17 20:59 Furosemide (Lasix Tab) 10 mg QAM PO 09/01/17 08:00 10/01/17 07:59 Docusate Sodium (coLACE SYRUP) 100 mg BID PO 08/31/17 20:00 09/30/17 19:59 Objective Vital Signs Date Time Temp Pulse Resp B/P (MAP) Pulse Ox O2 Delivery O2 Flow Rate FiO2 08/31/17 13:59 57 96 08/31/17 08:13 36.5 54 18 177/69 (105) 98 Room Air 08/31/17 08:00 Room Air 08/31/17 00:30 Room Air 08/31/17 00:18 62 166/64 (98) 08/30/17 23:00 36.7 61 18 222/87 (132) 96 Room Air 211/80 (123) 08/30/17 16:19 59 08/30/17 16:19 137/65 (89) 08/30/17 16:00 90 Room Air 08/30/17 15:43 36.6 91 18 190/64 (106) 90 Room Air 188/60 (102) Physical Exam General Appearance: no apparent distress, + thin Eyes: sclerae normal Neck: supple, no JVD, trachea midline Respiratory/Chest: lungs clear, normal breath sounds, no respiratory distress, no accessory muscle use Cardiovascular: regular rate, rhythm, no gallop, no murmur Abdomen: normal bowel sounds, non tender, soft Extremities: no pedal edema, + pertinent finding (slow gait; ) Neurologic/Psychiatric: alert Skin: normal color, warm/dry Laboratory Results Last 24 Hours Test 08/31/17 07:43 White Blood Count 4.65 K/uL Red Blood Count 3.47 M/uL Hemoglobin 9.9 g/dL Hematocrit 31.1 % Mean Corpuscular Volume 89.6 fL Mean Corpuscular Hemoglobin 28.5 pg Mean Corpuscular Hemoglobin Concent 31.8 g/dl Platelet Count 155 K/uL Mean Platelet Volume 10.3 fL Neutrophils (%) (Auto) 66.8 % Lymphocytes (%) (Auto) 20.4 % Monocytes (%) (Auto) 8.6 % Eosinophils (%) (Auto) 3.4 % Basophils (%) (Auto) 0.2 % Neutrophils # (Auto) 3.10 K/uL Lymphocytes # (Auto) 0.95 K/uL Monocytes # (Auto) 0.40 K/uL Eosinophils # (Auto) 0.16 K/uL Basophils # (Auto) 0.01 K/uL RDW Standard Deviation 49.1 fL RDW Coefficient of Variation 15.0 % Immature Granulocyte % (Auto) 0.6 % Immature Granulocyte # (Auto) 0.03 K/uL Sodium Level 141 mmol/L Potassium Level 4.3 mmol/L Chloride Level 110 mmol/L Carbon Dioxide Level 25 mmol/L Anion Gap 6.0 mmol/L Blood Urea Nitrogen 54 mg/dl Creatinine 2.55 mg/dl Est Creatinine Clear Calc Drug Dose 16.8 ml/min Estimated GFR () 25.2 Estimated GFR (Non- 21.7 BUN/Creatinine Ratio 21.2 Random Glucose 101 mg/dl Calcium Level 8.6 mg/dl Pro-B-Type Natriuretic Peptide 6170 pg/ml Assessment and Plan 87yo male presenting with progressive bilateral LE edema, weakness, increased frequency of falls. Acute on Chronic Diastolic CHF: IMPROVING - Currently at a negative 7.3 L and will continue to monitor; BNP was [address] on admission and down to 6000 - BB on hold and likely will discontinue on D/C due to bradycardia - Start Lasix 10 mg daily; Monitor electrolytes HTN: Uncontrolled - Increased Norvasc to 5 mg daily; Losartan 100 mg daily - Hydralazine PRN CAD: STABLE - Mild elevation in troponins - stable - Atorvastatin 20 mg daily and Plavix 75 mg daily Parkinsons Disease/Multiple Falls: - Sinemet 3 tabs TID - PT/OT following - plans for rehab at [facility], [place] Overactive Bladder: STABLE - Detrol 2 mg BID DVT Prophylaxis: Heparin 5000 units SC Q8H Code Status: DNR per previous discussion with patient and family Disposition: [facility], [place] - Anticipate D/C tomorrow Discharge planning: care home facility
[2017-08-31 15:25] VITALS: BP 185/69; PULSE 60; TEMP 36.4; O2SAT 91
[2017-08-31] MEDS: HydrALAZINE HCL 20 MG/ML VIAL IV. PRN (15:50)
[2017-08-31 16:00] VITALS: O2SAT 91
[2017-08-31 17:57] VITALS: BP 147/68
[2017-08-31] MEDS: DOCUSATE SODIUM 100 MG/10 ML UDC PO SCH (19:40)
[2017-08-31] MEDS: ATORVASTATIN 20 MG TAB PO SCH (21:35)
[2017-09-01] VITALS (15 sets, daily range): BP systolic 107–211; BP diastolic 50–83; PULSE 57–72; TEMP 36.4–36.9; O2SAT 93–99
[2017-09-01] MEDS: HydrALAZINE HCL 20 MG/ML VIAL IV. PRN ×2 (02:16→23:44)
[2017-09-01] MEDS: HEPARIN SOD 5000 UNIT/0.5 ML CARP SQ SCH ×3 (02:18→18:46)
[2017-09-01] MEDS: AZILECT~ORDER AWAITING ACTION SCH ×3 (08:00→15:24)
[2017-09-01] MEDS: DOCUSATE SODIUM 100 MG/10 ML UDC PO SCH ×2 (08:07→20:48)
[2017-09-01] MEDS: CARBIDOPA/LEVODOPA 25/100MG EXT REL TAB PO SCH ×3 (08:07→20:48)
[2017-09-01] MEDS: TOLTERODINE TARTRATE 2 MG TAB PO SCH ×2 (08:07→20:48)
[2017-09-01] MEDS: TRAVOPROST Z 0.004% OPH SOLN 2.5 ML BTL OP SCH (08:07)
[2017-09-01] MEDS: FUROSEMIDE 20 MG TAB PO SCH (08:08)
[2017-09-01] MEDS: AMLODIPINE BESYLATE 5 MG TAB PO SCH ×2 (08:08→20:48)
[2017-09-01] MEDS: CLOPIDOGREL BISULFATE 75 MG TAB PO SCH (08:08)
[2017-09-01] MEDS: LOSARTAN POTASSIUM 50 MG TAB PO SCH (08:09)
[2017-09-01 10:59] LABS: BASO % 0.2 %; BASO ABS # 0.01 K/uL (0-0.2); EOS % 3.3 %; EOS ABS # 0.14 K/uL (0-0.5); HEMATOCRIT 27.2 % (42-52); HEMOGLOBIN 8.6 g/dL (14.0-18.0); IG# 0.02 K/uL (0.00-0.02); LYMPH % 16.5 %; LYMPH ABS # 0.71 K/uL (1.2-3.4); MEAN CELL VOLUME 89.5 fL (80-100); MEAN CORPUSCULAR HEMOGLOBIN 28.3 pg (25-34); MEAN CORPUSCULAR HGB CONC 31.6 g/dl (32-36); MEAN PLATELET VOLUME 9.9 fL (7.4-10.4); MONO % 5.8 %; MONO ABS # 0.25 K/uL (0.11-0.59); NEUT % 73.7 %; NEUT ABS # 3.17 K/uL (1.4-6.5); PLATELET COUNT 145 K/uL (130-400); RED CELL DISTRIBUTION WIDTH CV 15.3 % (11.5-14.5); RED CELL DISTRIBUTION WIDTH SD 49.7 fL (36.4-46.3)
[2017-09-01 11:26] LABS: ALBUMIN 2.8 gm/dl (3.4-5.0); CALCIUM 8.1 mg/dl (8.5-10.1); CREATININE 2.76 mg/dl (0.60-1.40); POTASSIUM 3.8 mmol/L (3.5-5.1)
[2017-09-01 11:28] LABS: TOTAL PROTEIN 5.7 gm/dl (6.4-8.2)
[2017-09-01 12:09] LABS: PHOSPHORUS 3.4 mg/dl (2.5-4.9)
--- NOTE | 2017-09-01 13:59 | Hospitalist Progress Note ---
Hospitalist Progress Note Date of Service Sep 01, 2017. Subjective Pt evaluation today including: conversation w/ patient, physical exam, lab review, review of studies, review of inpatient medication list Patient seen and evaluated. Patient was seen earlier this AM and patient was sleeping. Patient easily awakens but reports being very tired today. Appears in no distress but quickly falls back to sleep. BP has been running in 190s systolically then dropped to 90s today. Slowly improving. Given Hydralazine overnight but only had AM Norvasc and Losartan. Appears to have more sleepy moments at home around mid-morning. Maybe is having lows after medications? EKG showing QT prolongation and T wave inversions in V1-6. Denies any pain or SOB. Only complaint is feeling sleepy Additional Comments: ROS limited due to falling asleep. Denies CP or SOB. Only verbalizes feeling very sleepy Medications Current Inpatient Medications Medications (Trade) Dose Ordered Sig/Janet Route Start Time Stop Time Status Last Admin Dose Admin Atorvastatin Calcium (Lipitor Tab) 20 mg QPM PO 08/25/17 21:00 09/24/17 20:59 08/31/17 21:35 20 MG Carbidopa/Levodopa (Sinemet Cr 25/ 100MG Tab) 3 tab TID PO 08/25/17 21:00 09/24/17 20:59 09/01/17 08:07 3 TAB Clopidogrel Bisulfate (plAVix TAB) 75 mg DAILY PO 08/26/17 08:00 09/25/17 08:59 09/01/17 08:08 75 MG Tolterodine Tartrate (Detrol Tab) 2 mg BID PO 08/25/17 21:00 09/24/17 20:59 09/01/17 08:07 2 MG Travoprost (Travatan Z) 1 drops QAM OP 08/26/17 08:00 09/25/17 08:59 09/01/17 08:07 1 DROPS Miscellaneous Information (Order Awaiting Action) 1 ea QS N/A 08/25/17 20:45 09/24/17 20:44 Losartan Potassium (coZAAR TAB) 100 mg QAM PO 08/26/17 08:00 09/25/17 08:59 09/01/17 08:09 100 MG Heparin Sodium (Porcine) (Heparin Sq 5000 Unit/0.5ml) 5,000 unit Q8H SQ 08/25/17 18:00 09/24/17 17:59 09/01/17 10:49 5,000 UNIT Acetaminophen (Tylenol Tab) 650 mg Q4H PRN PO 08/25/17 20:00 09/24/17 19:59 Al Hydrox/Mg Hydrox/Simethicone (Maalox Max Susp) 15 ml Q4H PRN PO 08/25/17 20:00 09/24/17 19:59 Docusate Sodium (coLACE CAP) 100 mg BID PRN PO 08/25/17 21:00 09/24/17 20:59 08/26/17 08:41 100 MG Hydralazine HCl (HydrALAZINE INJ) 10 mg Q4 PRN IV. 08/31/17 08:30 09/24/17 20:59 09/01/17 02:16 10 MG Furosemide (Lasix Tab) 10 mg QAM PO 09/01/17 08:00 10/01/17 07:59 09/01/17 08:08 10 MG Docusate Sodium (coLACE SYRUP) 100 mg BID PO 08/31/17 20:00 09/30/17 19:59 09/01/17 08:07 100 MG Amlodipine Besylate (Norvasc Tab) 2.5 mg Q12H PO 09/01/17 20:00 09/25/17 08:59 Objective Vital Signs Date Time Temp Pulse Resp B/P (MAP) Pulse Ox O2 Delivery O2 Flow Rate FiO2 09/01/17 12:24 99 Room Air 09/01/17 12:17 70 20 110/50 (70) 99 Room Air 09/01/17 10:30 107/50 (69) 09/01/17 08:00 Room Air 09/01/17 07:32 36.9 57 18 174/78 (110) 93 Room Air 196/70 (112) 09/01/17 03:07 163/68 (99) 09/01/17 02:16 192/82 (118) 09/01/17 00:15 96 Room Air 2.0 09/01/17 00:14 36.7 67 18 184/65 (104) 96 Room Air 08/31/17 17:57 147/68 (94) 08/31/17 16:00 91 Room Air 08/31/17 15:25 36.4 60 18 185/69 (107) 91 Room Air 08/31/17 13:59 57 96 Physical Exam General Appearance: WD/WN, no apparent distress Neck: supple, no JVD, trachea midline Respiratory/Chest: lungs clear, normal breath sounds, no respiratory distress, no accessory muscle use Cardiovascular: regular rate, rhythm, no gallop, no murmur Abdomen: normal bowel sounds, non tender, soft Extremities: no pedal edema, no calf tenderness Neurologic/Psychiatric: + pertinent finding (easily awakens to verbal stimuli but easily falls back asleep) Skin: normal color, warm/dry Laboratory Results Last 24 Hours Test 09/01/17 10:44 09/01/17 11:11 09/01/17 11:27 White Blood Count 4.30 K/uL Red Blood Count 3.04 M/uL Hemoglobin 8.6 g/dL Hematocrit 27.2 % Mean Corpuscular Volume 89.5 fL Mean Corpuscular Hemoglobin 28.3 pg Mean Corpuscular Hemoglobin Concent 31.6 g/dl Platelet Count 145 K/uL Mean Platelet Volume 9.9 fL Neutrophils (%) (Auto) 73.7 % Lymphocytes (%) (Auto) 16.5 % Monocytes (%) (Auto) 5.8 % Eosinophils (%) (Auto) 3.3 % Basophils (%) (Auto) 0.2 % Neutrophils # (Auto) 3.17 K/uL Lymphocytes # (Auto) 0.71 K/uL Monocytes # (Auto) 0.25 K/uL Eosinophils # (Auto) 0.14 K/uL Basophils # (Auto) 0.01 K/uL RDW Standard Deviation 49.7 fL RDW Coefficient of Variation 15.3 % Immature Granulocyte % (Auto) 0.5 % Immature Granulocyte # (Auto) 0.02 K/uL Red Blood Cell Morphology Unremarkable Sodium Level 141 mmol/L Potassium Level 3.8 mmol/L Chloride Level 110 mmol/L Carbon Dioxide Level 23 mmol/L Anion Gap 8.0 mmol/L Blood Urea Nitrogen 60 mg/dl Creatinine 2.76 mg/dl Est Creatinine Clear Calc Drug Dose 15.5 ml/min Estimated GFR () 22.9 Estimated GFR (Non- 19.7 BUN/Creatinine Ratio 21.9 Random Glucose 151 mg/dl Calcium Level 8.1 mg/dl Total Bilirubin 0.5 mg/dl Aspartate Amino Transf (AST/SGOT) 30 U/L Alanine Aminotransferase (ALT/SGPT) 14 U/L Alkaline Phosphatase 86 U/L Total Protein 5.7 gm/dl Albumin 2.8 gm/dl Globulin 2.9 gm/dl Albumin/Globulin Ratio 1.0 Creatine Kinase MB Ratio Phosphorus Level 3.4 mg/dl Magnesium Level 2.2 mg/dl Creatine Kinase MB 4.0 ng/ml Troponin I 0.022 ng/ml Prealbumin 15.9 mg/dl Vitamin B12 Level 431 pg/mL Folate 6.76 ng/mL Thyroid Stimulating Hormone (TSH) 2.330 uIu/ml Assessment and Plan 87yo male presenting with progressive bilateral LE edema, weakness, increased frequency of falls. Acute on Chronic Diastolic CHF: RESOLVED - Currently at a negative 7.4 L and will continue to monitor; BNP was [address]06 on admission and down to 6000 - BB on hold and likely will discontinue on D/C due to bradycardia - Continue Lasix 10 mg daily; Monitor electrolytes HTN: Acute Hypotension - Patient with BPs in 90-110 systolically this AM which is drastic drop from 170 -190s that he commonly runs - Change to Norvasc 2.5 mg BID; Losartan 100 mg daily - Hydralazine PRN CAD: STABLE - Mild elevation in troponins - stable; Repeat EKG with QT prolongation and T wave inversions - transferred to [facility] [place] and will monitor - electrolytes acceptable - Atorvastatin 20 mg daily and Plavix 75 mg daily Parkinsons Disease/Multiple Falls: - Sinemet 3 tabs TID - PT/OT following - plans for rehab at [facility] Overactive Bladder: STABLE - Detrol 2 mg BID DVT Prophylaxis: Heparin 5000 units SC Q8H Code Status: DNR per previous discussion with patient and family Disposition: [facility] - Will keep today and monitor - further assessment in AM Continued [facility] stay due to: abnormal vital signs Discharge planning: shelter facility
--- NOTE | 2017-09-01 14:02 | Cardiology Consultation ---
Cardiology Consultation Date of Consultation: Sep 01, 2017. Requesting Physician: Dr. Singh Reason for Consultation: Abnormal ECG, positive troponin Pt evaluation today including: conversation w/ patient, physical exam, lab review, review of studies, review of inpatient medication list, conversation w/ attending History of Present Illness This is an 87-year-old male who follows with Dr. Dockery in our office. He has a history of hypertension, hypercholesterolemia, chronic kidney disease and Parkinson's disease as well as known coronary artery disease including a myocardial infarction in 2000, four-vessel bypass surgery in 2007 and preserved left ventricular function. He has a very labile blood pressure as well as postural orthostasis, and he tends to have sinus bradycardia. He was admitted August 25, 2017 with bilateral edema and progressive shortness of breath and was in congestive heart failure. He has been diuresed in excess of 7 L. On admission he did have slight troponin elevation (the highest was 0.147 on admission in the descending pattern subsequently). At the time of my evaluation he is feeling well and has no complaints. He told me that he had sudden swelling in his legs prior to admission (although it must have been going on for some time) as well as leg pain. That has resolved. He denies chest discomfort then or now and is not having shortness of breath now. He denies orthopnea or PND currently. He has had no lightheadedness, dizziness , presyncope or syncope. Past Medical/Surgical History (1) Parkinson's disease Hypertension Hypercholesterolemia Parkinson's disease Coronary artery disease Coronary bypass surgery 2007 Family History Unknown Social History Smoking Status: Never Smoker History of Alcohol Use: No Review of Systems Constitutional: No fever, No weight loss, No weakness Respiratory: No cough, No shortness of breath Cardiac: No chest pain Abdomen: No pain, No nausea, No vomiting, No diarrhea, No GI bleeding Male : No urinary frequency, No nocturia more than once/night, No slowing stream, No sexual dysfunction Neurologic: No paralysis, No weakness, No numbness/tingling, No balance problems Heme: No abnormal bleeding/bruising, No clotting problems Endo: No fatigue Skin: No problem reported All Other Systems: Reviewed and Negative Allergies Coded Allergies: Alfuzosin (Unverified Allergy, Unknown, DIZZY, 08/25/17) Lactose Intolerance (GI) (Unverified Allergy, Unknown, diarrhea with milk products, 08/25/17) Medications Current Inpatient Medications Medications (Trade) Dose Ordered Sig/Janet Route Start Time Stop Time Status Last Admin Dose Admin Atorvastatin Calcium (Lipitor Tab) 20 mg QPM PO 08/25/17 21:00 09/24/17 20:59 08/31/17 21:35 20 MG Carbidopa/Levodopa (Sinemet Cr 25/ 100MG Tab) 3 tab TID PO 08/25/17 21:00 09/24/17 20:59 09/01/17 08:07 3 TAB Clopidogrel Bisulfate (plAVix TAB) 75 mg DAILY PO 08/26/17 08:00 09/25/17 08:59 09/01/17 08:08 75 MG Tolterodine Tartrate (Detrol Tab) 2 mg BID PO 08/25/17 21:00 09/24/17 20:59 09/01/17 08:07 2 MG Travoprost (Travatan Z) 1 drops QAM OP 08/26/17 08:00 09/25/17 08:59 09/01/17 08:07 1 DROPS Miscellaneous Information (Order Awaiting Action) 1 ea QS N/A 08/25/17 20:45 09/24/17 20:44 Losartan Potassium (coZAAR TAB) 100 mg QAM PO 08/26/17 08:00 09/25/17 08:59 09/01/17 08:09 100 MG Heparin Sodium (Porcine) (Heparin Sq 5000 Unit/0.5ml) 5,000 unit Q8H SQ 08/25/17 18:00 09/24/17 17:59 09/01/17 10:49 5,000 UNIT Acetaminophen (Tylenol Tab) 650 mg Q4H PRN PO 08/25/17 20:00 09/24/17 19:59 Al Hydrox/Mg Hydrox/Simethicone (Maalox Max Susp) 15 ml Q4H PRN PO 08/25/17 20:00 09/24/17 19:59 Docusate Sodium (coLACE CAP) 100 mg BID PRN PO 08/25/17 21:00 09/24/17 20:59 08/26/17 08:41 100 MG Hydralazine HCl (HydrALAZINE INJ) 10 mg Q4 PRN IV. 08/31/17 08:30 09/24/17 20:59 09/01/17 02:16 10 MG Furosemide (Lasix Tab) 10 mg QAM PO 09/01/17 08:00 10/01/17 07:59 09/01/17 08:08 10 MG Docusate Sodium (coLACE SYRUP) 100 mg BID PO 08/31/17 20:00 09/30/17 19:59 09/01/17 08:07 100 MG Amlodipine Besylate (Norvasc Tab) 2.5 mg Q12H PO 09/01/17 20:00 09/25/17 08:59 Physical Exam Vital Signs Past 12 Hours Date Time Temp Pulse Resp B/P (MAP) Pulse Ox O2 Delivery O2 Flow Rate FiO2 09/01/17 12:24 99 Room Air 09/01/17 12:17 70 20 110/50 (70) 99 Room Air 09/01/17 10:30 107/50 (69) 09/01/17 08:00 Room Air 09/01/17 07:32 36.9 57 18 174/78 (110) 93 Room Air 196/70 (112) 09/01/17 03:07 163/68 (99) 09/01/17 02:16 192/82 (118) Constitutional: Level of Distress: NAD Head: normocephalic Eyes: EOM: EOMI ENMT: normal ENT inspection, hearing grossly normal Neck: supple, no masses Lungs: Respiratory effort: no dyspnea, good air movement Auscultation: breath sounds normal, no wheezing Cardiovascular: Heart Auscultation: RRR, no rubs, no gallops, bradycardia, II/ WSM Peripheral Pulses: Bruits: none appreciated Abdomen: Bowel Sounds: normal Inspection & Palpation: soft, no tenderness, guarding & rebound, no masses Musculoskeletal: abnormal strength Extremities: no edema Neurologic: Cranial Nerves: grossly intact Sensation: grossly intact Data Laboratory Results: Last 24 Hours Test 09/01/17 10:44 09/01/17 11:11 09/01/17 11:27 White Blood Count 4.30 K/uL Red Blood Count 3.04 M/uL Hemoglobin 8.6 g/dL Hematocrit 27.2 % Mean Corpuscular Volume 89.5 fL Mean Corpuscular Hemoglobin 28.3 pg Mean Corpuscular Hemoglobin Concent 31.6 g/dl Platelet Count 145 K/uL Mean Platelet Volume 9.9 fL Neutrophils (%) (Auto) 73.7 % Lymphocytes (%) (Auto) 16.5 % Monocytes (%) (Auto) 5.8 % Eosinophils (%) (Auto) 3.3 % Basophils (%) (Auto) 0.2 % Neutrophils # (Auto) 3.17 K/uL Lymphocytes # (Auto) 0.71 K/uL Monocytes # (Auto) 0.25 K/uL Eosinophils # (Auto) 0.14 K/uL Basophils # (Auto) 0.01 K/uL RDW Standard Deviation 49.7 fL RDW Coefficient of Variation 15.3 % Immature Granulocyte % (Auto) 0.5 % Immature Granulocyte # (Auto) 0.02 K/uL Red Blood Cell Morphology Unremarkable Sodium Level 141 mmol/L Potassium Level 3.8 mmol/L Chloride Level 110 mmol/L Carbon Dioxide Level 23 mmol/L Anion Gap 8.0 mmol/L Blood Urea Nitrogen 60 mg/dl Creatinine 2.76 mg/dl Est Creatinine Clear Calc Drug Dose 15.5 ml/min Estimated GFR () 22.9 Estimated GFR (Non- 19.7 BUN/Creatinine Ratio 21.9 Random Glucose 151 mg/dl Calcium Level 8.1 mg/dl Total Bilirubin 0.5 mg/dl Aspartate Amino Transf (AST/SGOT) 30 U/L Alanine Aminotransferase (ALT/SGPT) 14 U/L Alkaline Phosphatase 86 U/L Total Protein 5.7 gm/dl Albumin 2.8 gm/dl Globulin 2.9 gm/dl Albumin/Globulin Ratio 1.0 Creatine Kinase MB Ratio Phosphorus Level 3.4 mg/dl Magnesium Level 2.2 mg/dl Creatine Kinase MB 4.0 ng/ml Troponin I 0.022 ng/ml Prealbumin 15.9 mg/dl Vitamin B12 Level 431 pg/mL Folate 6.76 ng/mL Thyroid Stimulating Hormone (TSH) 2.330 uIu/ml Imaging: An echocardiogram done August 26, 2017 shows normal left ventricular size and function with ejection fraction of 55-60%. He does have mild concentric left ventricular hypertrophy. EKG: His electrocardiogram today shows sinus bradycardia at 56 bpm, the QTc is prolonged at 513 ms and there is anterolateral T-wave inversion. This is suggestive of ischemia. In comparison his admission electrocardiogram from August 25, 2017 shows sinus rhythm at 60 bpm with premature atrial beats, the QT is long as well with a QTc of 510 ms on that electrocardiogram. The anterolateral T-wave inversion however was not present on the prior tracing. Going back to December 27, 2016 the QT interval is similar, T-wave abnormalities are present on the earlier electrocardiogram but not quite as severe as the current. Telemetry reviewed: Sinus bradycardia, very little heart rate change but he is only been on telemetry since this morning Assessment & Plan 1. Enzyme rise: He did have a slight elevation of his troponin initially, however the first measurement was the highest and there was a descending pattern and currently it is normal. This is consistent with demand ischemia not an infarction, he has known coronary disease and with his congestive heart failure this is not surprising. He has no symptoms to suggest active ischemia. I would not pursue further evaluation. 2. Congestive heart failure: He describes sudden onset of peripheral edema, however he has lost 7 kg and therefore it must have taken some time for this fluid to develop, evidently he only noticed it shortly before admission. It is evidently diastolic in nature, he does not have systolic dysfunction. I would manage this with diuresis and fluid restriction, hopefully with daily weights recurrence can be avoided. 3. QT: He does have a long QT, however his corrected QT interval has only changed by few milliseconds between December 2017, his admission electrocardiogram and the one today. The T waves are different between them, they are inverted now, but I would not ascribe too much significance to that. He is bradycardic which prolongs his QT and corrected the measurement is essentially unchanged this admission. It would be prudent to avoid QT prolonging medications, I do not think we can start a beta-obey due to his resting bradycardia and therefore I would simply observe. 4. Sinus bradycardia: He has an element of sinus node dysfunction. When he came in his heart rate was about 68, now it is about 50 and in the past he has had sinus bradycardia prompting discontinuation of beta blockade. I would avoid negative chronotropic medications but I do not think he has symptoms to suggest the need for a pacemaker. I would like to avoid a pacemaker if possible , will that is always a possibility if his heart rate slows further or if he has symptoms of bradycardia. Thank you for allowing me to participate in his care.
[2017-09-01] MEDS: ATORVASTATIN 20 MG TAB PO SCH (20:48)
[2017-09-01] MEDS ORDERED: AMLODIPINE BESYLATE 5 MG TAB PO SCH (21:00)
--- NOTE | 2017-09-01 21:57 | History & Physical Bridge Note ---
H&P Re-Evaluation Bridge Note: Nurse called regarding patient's atrial fibrillation. Pt has been in Afib since being transferred to telemetry. Chart was reviewed, A Fib is not noted to be in the Patient's PMHx. Patient's Hemoglobin is low and I noticed that an FOBT is ordered. Patient is also here for a history of falls. Vital signs reviewed. Per nurse the patient is stable and has no complaints. Will defer to day team regarding starting anticoagulation (fall risk, hemoglobin is low pt may have a GI bleed) and cardiology regarding Echocardiogram and possible cardioversion. Cardiology is on board. The Patient's CHADS-VASC score is 4 which certainly makes him a candidate for AC , however the drawbacks might outweigh the risks especially regarding the patient's other comorbidities. Resident Involvement: [employer] Officer Coverage Note Care Provided: [facility]
[2017-09-01] MEDS ORDERED: METOPROLOL TARTRATE 1 MG/ML VIAL IV STA (23:58)
[2017-09-02] VITALS (13 sets, daily range): BP systolic 127–208; BP diastolic 56–88; PULSE 56–81; TEMP 36.2–37.1; O2SAT 90–99
[2017-09-02] MEDS: HEPARIN SOD 5000 UNIT/0.5 ML CARP SQ SCH ×2 (01:44→09:12)
[2017-09-02] MEDS ORDERED: METOPROLOL TARTRATE 1 MG/ML VIAL ONE (04:15)
[2017-09-02 06:43] LABS: BASO % 0.2 %; BASO ABS # 0.01 K/uL (0-0.2); EOS % 3.1 %; EOS ABS # 0.13 K/uL (0-0.5); HEMATOCRIT 34.4 % (42-52); HEMOGLOBIN 10.6 g/dL (14.0-18.0); IG# 0.02 K/uL (0.00-0.02); LYMPH % 20.7 %; LYMPH ABS # 0.87 K/uL (1.2-3.4); MEAN CELL VOLUME 90.1 fL (80-100); MEAN CORPUSCULAR HEMOGLOBIN 27.7 pg (25-34); MEAN CORPUSCULAR HGB CONC 30.8 g/dl (32-36); MONO % 6.7 %; MONO ABS # 0.28 K/uL (0.11-0.59); NEUT % 68.8 %; PLATELET COUNT 165 K/uL (130-400); RED CELL DISTRIBUTION WIDTH CV 15.2 % (11.5-14.5); RED CELL DISTRIBUTION WIDTH SD 49.7 fL (36.4-46.3); WHITE BLOOD COUNT 4.21 K/uL (4.8-10.8)
[2017-09-02 07:32] LABS: CALCIUM 8.9 mg/dl (8.5-10.1); CREATININE 2.45 mg/dl (0.60-1.40); PHOSPHORUS 3.3 mg/dl (2.5-4.9); POTASSIUM 4.4 mmol/L (3.5-5.1)
[2017-09-02] MEDS: AZILECT~ORDER AWAITING ACTION SCH ×3 (08:00→14:43)
[2017-09-02] MEDS: TOLTERODINE TARTRATE 2 MG TAB PO SCH ×2 (08:17→21:00)
[2017-09-02] MEDS: DOCUSATE SODIUM 100 MG/10 ML UDC PO SCH ×2 (08:17→21:00)
[2017-09-02] MEDS: CLOPIDOGREL BISULFATE 75 MG TAB PO SCH (08:18)
[2017-09-02] MEDS: LOSARTAN POTASSIUM 50 MG TAB PO SCH (08:18)
[2017-09-02] MEDS: FUROSEMIDE 20 MG TAB PO SCH ×3 (08:19→09:07)
[2017-09-02] MEDS: AMLODIPINE BESYLATE 5 MG TAB PO SCH ×2 (08:19→20:00)
[2017-09-02] MEDS: CARBIDOPA/LEVODOPA 25/100MG EXT REL TAB PO SCH ×3 (08:19→21:00)
[2017-09-02] MEDS: TRAVOPROST Z 0.004% OPH SOLN 2.5 ML BTL OP SCH (08:20)
[2017-09-02] MEDS ORDERED: NURSING VERBAL MED ORDER ONE (10:00)
--- NOTE | 2017-09-02 10:02 | Cardiology Follow-Up ---
Subjective Date of Service: Sep 02, 2017. Pt evaluation today including: conversation w/ patient, physical exam, lab review, review of studies, review of inpatient medication list History of Present Illness This is an 87-year-old male who follows with Dr. Dockery in our office. He has a history of hypertension, hypercholesterolemia, chronic kidney disease and Parkinson's disease as well as known coronary artery disease including a myocardial infarction in 2000, four-vessel bypass surgery in 2007 and preserved left ventricular function. He has a very labile blood pressure as well as postural orthostasis, and he tends to have sinus bradycardia. He was admitted August 25, 2017 with bilateral edema and progressive shortness of breath and was in congestive heart failure. He has been diuresed in excess of 7 L. On admission he did have slight troponin elevation (the highest was 0.147 on admission in the descending pattern subsequently). His QT interval does measure long, however the QTc has been relatively stable at various heart rates and no arrhythmia has been identified. He was reported as having atrial fibrillation last evening, I believe that was due to the appearance on telemetry monitoring and a 12-lead electrocardiogram which was computer read as atrial fibrillation although on review he does not appear to have had atrial fibrillation. This morning he is feeling well, he is in bed reading the paper and has no complaints. He has no complaints of palpitations. Social History Smoking Status: Never Smoker History of Alcohol Use: No Review of Systems Respiratory: No cough, No shortness of breath Cardiac: No chest pain, No palpitations Medications Cardiovascular: Item Value Date Time Amlodipine 2.5 mg 09/01/17 2000 Besylate Q12H/PO 09/02/17 0819 (Norvasc Tab) Furosemide 10 mg 09/01/17 0800 (Lasix Tab) QAM/PO Hydralazine HCl 10 mg 08/31/17 0830 (HydrALAZINE INJ) Q4 PRN/IV. 09/01/17 2344 Clopidogrel 75 mg 08/26/17 0800 Bisulfate DAILY/PO 09/02/17 0818 (plAVix TAB) Losartan Potassium 100 mg 08/26/17 0800 (coZAAR TAB) QAM/PO 09/02/17 0818 Atorvastatin 20 mg 08/25/17 2100 Calcium QPM/PO 09/01/172047 (Lipitor Tab) Objective Vital Signs Past 12 Hours Date Time Temp Pulse Resp B/P (MAP) Pulse Ox O2 Delivery O2 Flow Rate FiO2 09/02/17 09:43 99 Room Air 09/02/17 08:29 66 127/59 (81) 98 Room Air 66 163/64 (97) 64 182/66 (104) 09/02/17 07:28 36.2 68 16 208/88 (128) 93 Room Air 190/73 (112) 09/02/17 05:52 73 18 183/74 (110) 09/02/17 04:26 72 198/82 09/02/17 04:19 36.5 81 18 184/65 (104) 94 Room Air 09/02/17 04:11 71 18 196/81 (119) 09/02/17 04:00 Room Air 09/02/17 00:00 142/67 (92) 09/02/17 00:00 Room Air 09/01/17 23:49 36.7 72 16 93 Room Air 09/01/17 23:43 211/78 (122) 204/83 (123) Last Recorded Weight-Kilograms: 58.100 Physical Exam Constitutional: Level of Distress: NAD Lungs: Respiratory effort: no dyspnea, good air movement Auscultation: breath sounds normal, no wheezing Cardiovascular: Heart Auscultation: RRR, no rubs, no gallops, bradycardia, II/ WSM Peripheral Pulses: Bruits: none appreciated Extremities: no edema Data Laboratory Results: Last 24 Hours Test 09/01/17 10:44 09/01/17 11:11 09/01/17 11:27 09/02/17 06:19 White Blood Count 4.30 K/uL 4.21 K/uL Red Blood Count 3.04 M/uL 3.82 M/uL Hemoglobin 8.6 g/dL 10.6 g/dL Hematocrit 27.2 % 34.4 % Mean Corpuscular Volume 89.5 fL 90.1 fL Mean Corpuscular Hemoglobin 28.3 pg 27.7 pg Mean Corpuscular Hemoglobin Concent 31.6 g/dl 30.8 g/dl Platelet Count 145 K/uL 165 K/uL Mean Platelet Volume 9.9 fL 11.0 fL Neutrophils (%) (Auto) 73.7 % 68.8 % Lymphocytes (%) (Auto) 16.5 % 20.7 % Monocytes (%) (Auto) 5.8 % 6.7 % Eosinophils (%) (Auto) 3.3 % 3.1 % Basophils (%) (Auto) 0.2 % 0.2 % Neutrophils # (Auto) 3.17 K/uL 2.90 K/uL Lymphocytes # (Auto) 0.71 K/uL 0.87 K/uL Monocytes # (Auto) 0.25 K/uL 0.28 K/uL Eosinophils # (Auto) 0.14 K/uL 0.13 K/uL Basophils # (Auto) 0.01 K/uL 0.01 K/uL RDW Standard Deviation 49.7 fL 49.7 fL RDW Coefficient of Variation 15.3 % 15.2 % Immature Granulocyte % (Auto) 0.5 % 0.5 % Immature Granulocyte # (Auto) 0.02 K/uL 0.02 K/uL Large Platelets 1+ Red Blood Cell Morphology Unremarkable Sodium Level 141 mmol/L 139 mmol/L Potassium Level 3.8 mmol/L 4.4 mmol/L Chloride Level 110 mmol/L 109 mmol/L Carbon Dioxide Level 23 mmol/L 24 mmol/L Anion Gap 8.0 mmol/L 6.0 mmol/L Blood Urea Nitrogen 60 mg/dl 56 mg/dl Creatinine 2.76 mg/dl 2.45 mg/dl Est Creatinine Clear Calc Drug Dose 15.5 ml/min 17.5 ml/min Estimated GFR () 22.9 26.4 Estimated GFR (Non- 19.7 22.8 BUN/Creatinine Ratio 21.9 23.0 Random Glucose 151 mg/dl 97 mg/dl Calcium Level 8.1 mg/dl 8.9 mg/dl Total Bilirubin 0.5 mg/dl Aspartate Amino Transf (AST/SGOT) 30 U/L Alanine Aminotransferase (ALT/SGPT) 14 U/L Alkaline Phosphatase 86 U/L Total Protein 5.7 gm/dl Albumin 2.8 gm/dl Globulin 2.9 gm/dl Albumin/Globulin Ratio 1.0 Creatine Kinase MB Ratio Phosphorus Level 3.4 mg/dl 3.3 mg/dl Magnesium Level 2.2 mg/dl 2.4 mg/dl Creatine Kinase MB 4.0 ng/ml Troponin I 0.022 ng/ml Prealbumin 15.9 mg/dl Vitamin B12 Level 431 pg/mL Folate 6.76 ng/mL Thyroid Stimulating Hormone (TSH) 2.330 uIu/ml Total Iron Binding Capacity 277 mcg/dl Ferritin 243.5 ng/ml Chemistry Specimen Hemolysis EKG: An electrocardiogram done September 01, 2017 at 2028 shows sinus rhythm with premature atrial beats or a sinus arrhythmia, it was computer read as atrial fibrillation but clearly is not. Telemetry reviewed: Sinus rhythm with an irregular rate at times, generally consistent with premature atrial beats not atrial fibrillation. Atrial activity is difficult to see on the monitor. Overall heart rate is well controlled, at times somewhat slow. Assessment and Plan 1. Enzyme rise: He did have a slight elevation of his troponin initially, however the first measurement was the highest and there was a descending pattern and currently it is normal. This is consistent with demand ischemia not an infarction, he has known coronary disease and with his congestive heart failure this is not surprising. He has no symptoms to suggest active ischemia. I would not pursue further evaluation. 2. Congestive heart failure: He describes sudden onset of peripheral edema, however he has lost 7 kg and therefore it must have taken some time for this fluid to develop, evidently he only noticed it shortly before admission. It is evidently diastolic in nature, he does not have systolic dysfunction. I would manage this with diuresis and fluid restriction, hopefully with daily weights recurrence can be avoided. He appears to be you hydrated currently. 3. QT: He does have a long QT, however his corrected QT interval has only changed by few milliseconds between December 2017, his admission electrocardiogram and the one on September 01, 2017. The T waves are different between them, they are inverted on September 01, but I would not ascribe too much significance to that. He is bradycardic which prolongs his QT and corrected the measurement is essentially unchanged this admission. It would be prudent to avoid QT prolonging medications, I do not think we can start a beta-obey due to his resting bradycardia and therefore I would simply observe. 4. Sinus bradycardia: He has an element of sinus node dysfunction. When he came in his heart rate was about 68, but it is often 50 at rest and in the past he has had sinus bradycardia prompting discontinuation of beta blockade. I would avoid negative chronotropic medications but I do not think he has symptoms to suggest the need for a pacemaker. I would like to avoid a pacemaker if possible, but that is always a possibility if his heart rate slows further or if he has symptoms of bradycardia. 5. Possible atrial fibrillation: I do not see that he has atrial fibrillation, the 12-lead electrocardiogram was computer read as such but it is not, it is an irregular rhythm which is sinus in origin. In addition telemetry monitoring suggested atrial fibrillation but I think that is just premature atrial beats. I would not consider anticoagulation at this point. Thank you for allowing me to participate in his care.
--- NOTE | 2017-09-02 11:52 | Clinical Documentation Query ---
CLINICAL DOCUMENTATION QUERY 87 yo male admitted with acute on chronic diastolic CHF. Patient's troponins were 0.147 peak and trended downward. EKG shows QT prolongation and T wave inversions. In your clinical opinion is this patient being managed for: ( x ) possible Type 2 CA due to demand ischemia upon admission ( ) Not Agree ( ) Other explanation of clinical findings (Please Explain) ( ) Unable to determine (Please Define) ( ) Need to Discuss The medical record reflects the following clinical findings, treatment, and risk factors. Clinical Indicators: As above Treatment: O2, telemetry, serial troponins, Cardiology consult Risk Factors: Age, HTN, CKD, acute CHF Please clarify and document your clinical opinion in the progress notes and discharge summary. Terms such as "probable", "suspected", "likely", "questionable", "possible", or "still to be ruled out" are acceptable. IF IN AGREEMENT, YOU MUST DOCUMENT ABOVE DIAGNOSTIC STATEMENT IN DAILY PROGRESS NOTES AND DISCHARGE SUMMARY. This document is not part of the patient's record. Thank You, Cris Maya RN [phone]
--- NOTE | 2017-09-02 12:06 | Hospitalist Progress Note ---
Hospitalist Progress Note Date of Service Sep 02, 2017. Subjective Pt evaluation today including: conversation w/ patient, physical exam, lab review, review of studies, review of inpatient medication list Patient seen and evaluated. No acute events overnight. Continues to be hypertensive with occ. lower readings. BPs remain labile Given orthostasis it may be better to leave him a little high given age and fall risk. There is question of A Fib on EKG and monitor but cardiology is following and reviewed strips. Has irregularity however underlying rhythm is sinus. More alert today. Verbalizes no complaints. Tolerating diet. Constitutional: No fever, No chills Respiratory: No cough, No shortness of breath Cardiovascular: No chest pain Abdomen: No pain, No nausea, No vomiting Medications Current Inpatient Medications Medications (Trade) Dose Ordered Sig/Janet Route Start Time Stop Time Status Last Admin Dose Admin Atorvastatin Calcium (Lipitor Tab) 20 mg QPM PO 08/25/17 21:00 09/24/17 20:59 09/01/17 20:48 20 MG Carbidopa/Levodopa (Sinemet Cr 25/ 100MG Tab) 3 tab TID PO 08/25/17 21:00 09/24/17 20:59 09/02/17 08:19 3 TAB Clopidogrel Bisulfate (plAVix TAB) 75 mg DAILY PO 08/26/17 08:00 09/25/17 08:59 09/02/17 08:18 75 MG Tolterodine Tartrate (Detrol Tab) 2 mg BID PO 08/25/17 21:00 09/24/17 20:59 09/02/17 08:17 2 MG Travoprost (Travatan Z) 1 drops QAM OP 08/26/17 08:00 09/25/17 08:59 09/02/17 08:20 1 DROPS Miscellaneous Information (Order Awaiting Action) 1 ea QS N/A 08/25/17 20:45 09/24/17 20:44 Losartan Potassium (coZAAR TAB) 100 mg QAM PO 08/26/17 08:00 09/25/17 08:59 09/02/17 08:18 100 MG Heparin Sodium (Porcine) (Heparin Sq 5000 Unit/0.5ml) 5,000 unit Q8H SQ 08/25/17 18:00 09/24/17 17:59 09/02/17 09:12 5,000 UNIT Acetaminophen (Tylenol Tab) 650 mg Q4H PRN PO 08/25/17 20:00 09/24/17 19:59 Al Hydrox/Mg Hydrox/Simethicone (Maalox Max Susp) 15 ml Q4H PRN PO 08/25/17 20:00 09/24/17 19:59 Docusate Sodium (coLACE CAP) 100 mg BID PRN PO 08/25/17 21:00 09/24/17 20:59 08/26/17 08:41 100 MG Hydralazine HCl (HydrALAZINE INJ) 10 mg Q4 PRN IV. 08/31/17 08:30 09/24/17 20:59 09/01/17 23:44 10 MG Furosemide (Lasix Tab) 10 mg QAM PO 09/01/17 08:00 10/01/17 07:59 09/01/17 08:08 10 MG Docusate Sodium (coLACE SYRUP) 100 mg BID PO 08/31/17 20:00 09/30/17 19:59 09/02/17 08:17 100 MG Amlodipine Besylate (Norvasc Tab) 2.5 mg Q12H PO 09/01/17 20:00 09/25/17 08:59 09/02/17 08:19 2.5 MG Objective Vital Signs Date Time Temp Pulse Resp B/P (MAP) Pulse Ox O2 Delivery O2 Flow Rate FiO2 09/02/17 11:24 37.1 69 20 179/74 (109) 66 163/68 (99) 09/02/17 09:43 99 Room Air 09/02/17 08:29 66 127/59 (81) 98 Room Air 66 163/64 (97) 64 182/66 (104) 09/02/17 07:28 36.2 68 16 208/88 (128) 93 Room Air 190/73 (112) 09/02/17 05:52 73 18 183/74 (110) 09/02/17 04:26 72 198/82 09/02/17 04:19 36.5 81 18 184/65 (104) 94 Room Air 09/02/17 04:11 71 18 196/81 (119) 09/02/17 04:00 Room Air 09/02/17 00:00 142/67 (92) 09/02/17 00:00 Room Air 09/01/17 23:49 36.7 72 16 93 Room Air 09/01/17 23:43 211/78 (122) 204/83 (123) 09/01/17 20:40 194/62 (106) 182/76 (111) 09/01/17 20:00 99 Room Air 09/01/17 19:48 36.4 71 16 187/65 (105) 96 Room Air 09/01/17 16:21 36.8 63 18 187/53 (97) 94 Room Air 09/01/17 16:00 99 Room Air 09/01/17 12:24 99 Room Air 09/01/17 12:17 70 20 110/50 (70) 99 Room Air Physical Exam General Appearance: no apparent distress, + thin Eyes: sclerae normal Neck: supple, no JVD, trachea midline Respiratory/Chest: lungs clear, normal breath sounds, no respiratory distress, no accessory muscle use Cardiovascular: no gallop, no murmur, + pertinent finding (regular rate with intermittent irregularity) Abdomen: normal bowel sounds, non tender, soft Extremities: no pedal edema Neurologic/Psychiatric: alert Skin: normal color, warm/dry Laboratory Results Last 24 Hours Test 09/02/17 06:19 White Blood Count 4.21 K/uL Red Blood Count 3.82 M/uL Hemoglobin 10.6 g/dL Hematocrit 34.4 % Mean Corpuscular Volume 90.1 fL Mean Corpuscular Hemoglobin 27.7 pg Mean Corpuscular Hemoglobin Concent 30.8 g/dl Platelet Count 165 K/uL Mean Platelet Volume 11.0 fL Neutrophils (%) (Auto) 68.8 % Lymphocytes (%) (Auto) 20.7 % Monocytes (%) (Auto) 6.7 % Eosinophils (%) (Auto) 3.1 % Basophils (%) (Auto) 0.2 % Neutrophils # (Auto) 2.90 K/uL Lymphocytes # (Auto) 0.87 K/uL Monocytes # (Auto) 0.28 K/uL Eosinophils # (Auto) 0.13 K/uL Basophils # (Auto) 0.01 K/uL RDW Standard Deviation 49.7 fL RDW Coefficient of Variation 15.2 % Immature Granulocyte % (Auto) 0.5 % Immature Granulocyte # (Auto) 0.02 K/uL Sodium Level 139 mmol/L Potassium Level 4.4 mmol/L Chloride Level 109 mmol/L Carbon Dioxide Level 24 mmol/L Anion Gap 6.0 mmol/L Blood Urea Nitrogen 56 mg/dl Creatinine 2.45 mg/dl Est Creatinine Clear Calc Drug Dose 17.5 ml/min Estimated GFR () 26.4 Estimated GFR (Non- 22.8 BUN/Creatinine Ratio 23.0 Random Glucose 97 mg/dl Calcium Level 8.9 mg/dl Phosphorus Level 3.3 mg/dl Magnesium Level 2.4 mg/dl Total Iron Binding Capacity 277 mcg/dl Ferritin 243.5 ng/ml Chemistry Specimen Hemolysis Assessment and Plan 87yo male presenting with progressive bilateral LE edema, weakness, increased frequency of falls. Acute on Chronic Diastolic CHF: RESOLVED - Currently at a negative 7.5 L and will continue to monitor; BNP was [address]20 on admission and down to 6000 - BB on hold and likely will discontinue on D/C due to bradycardia - Continue Lasix 10 mg daily; Monitor electrolytes HTN: +Orthostatics - Appears to have a drastic response to medications however not sustaining as he drops to 90-110s systolically then rebounds back to 160-190s - Change to Norvasc 2.5 mg BID; Losartan will be decreased to 75 mg daily; Lasix may give additional coverage - Has positive orthostatics which limits complete treatment of BP, given age and falls at home it may be more reasonable to let his BPs run high - Hydralazine PRN; Careful with BB as he has a tendency to have bradycardia Questioned A Fib: - Cardiology following - appears more irregular with underlying sinus rhythm. Not recommending AC which would agree given falls and risk likely would outweigh benefits CAD: STABLE - Mild elevation in troponins - stable - Atorvastatin 20 mg daily and Plavix 75 mg daily Parkinsons Disease/Multiple Falls: - Sinemet 3 tabs TID - PT/OT following - plans for rehab at [facility] Overactive Bladder: STABLE - Detrol 2 mg BID DVT Prophylaxis: Heparin 5000 units SC Q8H Code Status: DNR per previous discussion with patient and family Disposition: [facility] - will reassess tomorrow for possible D/C Continued [facility] stay due to: abnormal vital signs Discharge planning: residential facility
[2017-09-02] MEDS: HydrALAZINE HCL 20 MG/ML VIAL IV. PRN (15:34)
[2017-09-02] MEDS: BOOST PLUS VANILLA PO SCH (17:00)
[2017-09-02] MEDS: ATORVASTATIN 20 MG TAB PO SCH (21:00)
[2017-09-03] VITALS (9 sets, daily range): BP systolic 145–205; BP diastolic 66–92; PULSE 55–81; TEMP 36.3–37.1; O2SAT 92–99
[2017-09-03] MEDS: HEPARIN SOD 5000 UNIT/0.5 ML CARP SQ SCH ×3 (00:50→17:56)
[2017-09-03 06:04] LABS: EOS % 2.4 %; EOS ABS # 0.11 K/uL (0-0.5); HEMATOCRIT 31.2 % (42-52); HEMOGLOBIN 9.5 g/dL (14.0-18.0); IG# 0.02 K/uL (0.00-0.02); LYMPH % 19.6 %; LYMPH ABS # 0.89 K/uL (1.2-3.4); MEAN CELL VOLUME 89.7 fL (80-100); MEAN CORPUSCULAR HEMOGLOBIN 27.3 pg (25-34); MEAN CORPUSCULAR HGB CONC 30.4 g/dl (32-36); MEAN PLATELET VOLUME 10.9 fL (7.4-10.4); MONO % 7.7 %; MONO ABS # 0.35 K/uL (0.11-0.59); NEUT % 69.9 %; NEUT ABS # 3.17 K/uL (1.4-6.5); PLATELET COUNT 158 K/uL (130-400); RED CELL DISTRIBUTION WIDTH CV 15.2 % (11.5-14.5); RED CELL DISTRIBUTION WIDTH SD 49.9 fL (36.4-46.3); WHITE BLOOD COUNT 4.54 K/uL (4.8-10.8)
[2017-09-03 06:40] LABS: CALCIUM 8.4 mg/dl (8.5-10.1); CREATININE 2.42 mg/dl (0.60-1.40); POTASSIUM 4.5 mmol/L (3.5-5.1)
[2017-09-03 06:42] LABS: PHOSPHORUS 3.9 mg/dl (2.5-4.9)
--- NOTE | 2017-09-03 07:19 | DIAGNOSTIC IMAGING REPORT ---
MRI OF THE BRAIN WITHOUT IV CONTRAST CLINICAL HISTORY: Transient ischemic attack versus seizure. COMPARISON STUDY: CT of the brain dated 08/25/2017. TECHNIQUE: MRI of the brain was performed utilizing various T1 and T2-weighted sequences in the axial, sagittal, and coronal planes. IV contrast was not administered for this examination. Examination was performed using the seizure protocol. The examination is degraded by motion artifact. FINDINGS: Brain parenchyma: There are age-related involutional changes noting moderate subcortical and periventricular microangiopathic disease. There is no hemorrhage or mass effect. 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 There is no restricted diffusion to suggest acute ischemia. Umanzor-white matter differentiation is preserved. No extra-axial fluid collection is seen. The cerebellar tonsils are normal in configuration. Ventricles, sulci, and cisterns: Prominent secondary to involutional change. Pituitary and sella: Unremarkable. Intracranial vasculature: Normal flow voids are maintained at the skull base. Orbits: The bony orbits are grossly intact. Orbital contents are normal in appearance noting bilateral ocular lens implants. Sinuses and mastoids: Mild mucosal thickening is seen in the ethmoid sinuses. The remaining paranasal sinuses and the mastoid air cells are clear. Calvarium: Unremarkable. Cervical cord: Partially visualized cervical spinal cord is normal in morphology and signal intensity. IMPRESSION: No acute intracranial abnormality noting a motion compromised examination. Electronically signed by: Bladimir Borrego M.D. 09/03/2017 7:17 AM Dictated Date/Time: 09/03/2017 7:14 AM
[2017-09-03] MEDS: AZILECT~ORDER AWAITING ACTION SCH ×3 (08:00→16:00)
--- NOTE | 2017-09-03 09:14 | Cardiology Follow-Up ---
Subjective Date of Service: Sep 03, 2017. Pt evaluation today including: conversation w/ patient, physical exam, lab review, review of studies, review of inpatient medication list History of Present Illness This is an 87-year-old male who follows with Dr. Dockery in our office. He has a history of hypertension, hypercholesterolemia, chronic kidney disease and Parkinson's disease as well as known coronary artery disease including a myocardial infarction in 2000, four-vessel bypass surgery in 2007 and preserved left ventricular function. He has a very labile blood pressure as well as postural orthostasis, and he tends to have sinus bradycardia. He was admitted August 25, 2017 with bilateral edema and progressive shortness of breath and was in congestive heart failure. He has been diuresed in excess of 7 L. On admission he did have slight troponin elevation (the highest was 0.147 on admission in the descending pattern subsequently). His QT interval does measure long, however the QTc has been relatively stable at various heart rates and no arrhythmia has been identified. He was reported as having atrial fibrillation last evening, I believe that was due to the appearance on telemetry monitoring and a 12-lead electrocardiogram which was computer read as atrial fibrillation although on review he does not appear to have had atrial fibrillation. He feels well today, he has no complaints. He is eating breakfast in bed. Social History Smoking Status: Never Smoker History of Alcohol Use: No Review of Systems Respiratory: No cough, No shortness of breath Cardiac: No chest pain Medications Cardiovascular: Item Value Date Time Losartan Potassium 75 mg 09/03/17 0900 (coZAAR TAB) QAM/PO Amlodipine 2.5 mg 09/01/17 2000 Besylate Q12H/PO (Norvasc Tab) Furosemide 10 mg 09/01/17 0800 (Lasix Tab) QAM/PO Hydralazine HCl 10 mg 08/31/17 0830 (HydrALAZINE INJ) Q4 PRN/IV. 09/02/17 1534 Clopidogrel 75 mg 08/26/17 0800 Bisulfate DAILY/PO 09/02/17 0818 (plAVix TAB) Atorvastatin 20 mg 08/25/17 2100 Calcium QPM/PO (Lipitor Tab) Objective Vital Signs Past 12 Hours Date Time Temp Pulse Resp B/P (MAP) Pulse Ox O2 Delivery O2 Flow Rate FiO2 09/03/17 07:26 36.5 63 18 205/92 (129) 96 Room Air 09/03/17 04:20 36.6 68 16 168/76 (106) 95 Room Air 09/03/17 04:00 Room Air 09/03/17 00:00 Room Air 09/02/17 23:45 37.0 68 18 145/56 (85) 90 Room Air Last Recorded Weight-Kilograms: 57.800 Physical Exam Constitutional: Level of Distress: NAD Lungs: Respiratory effort: no dyspnea, good air movement Auscultation: breath sounds normal, no wheezing Cardiovascular: Heart Auscultation: RRR, no rubs, no gallops, bradycardia, II/ WSM Peripheral Pulses: Bruits: none appreciated Extremities: no edema Data Laboratory Results: Last 24 Hours Test 09/03/17 05:44 White Blood Count 4.54 K/uL Red Blood Count 3.48 M/uL Hemoglobin 9.5 g/dL Hematocrit 31.2 % Mean Corpuscular Volume 89.7 fL Mean Corpuscular Hemoglobin 27.3 pg Mean Corpuscular Hemoglobin Concent 30.4 g/dl Platelet Count 158 K/uL Mean Platelet Volume 10.9 fL Neutrophils (%) (Auto) 69.9 % Lymphocytes (%) (Auto) 19.6 % Monocytes (%) (Auto) 7.7 % Eosinophils (%) (Auto) 2.4 % Basophils (%) (Auto) 0.0 % Neutrophils # (Auto) 3.17 K/uL Lymphocytes # (Auto) 0.89 K/uL Monocytes # (Auto) 0.35 K/uL Eosinophils # (Auto) 0.11 K/uL Basophils # (Auto) 0.00 K/uL RDW Standard Deviation 49.9 fL RDW Coefficient of Variation 15.2 % Immature Granulocyte % (Auto) 0.4 % Immature Granulocyte # (Auto) 0.02 K/uL Sodium Level 142 mmol/L Potassium Level 4.5 mmol/L Chloride Level 111 mmol/L Carbon Dioxide Level 22 mmol/L Anion Gap 9.0 mmol/L Blood Urea Nitrogen 62 mg/dl Creatinine 2.42 mg/dl Est Creatinine Clear Calc Drug Dose 17.6 ml/min Estimated GFR () 26.8 Estimated GFR (Non- 23.1 BUN/Creatinine Ratio 25.7 Random Glucose 100 mg/dl Calcium Level 8.4 mg/dl Phosphorus Level 3.9 mg/dl Magnesium Level 2.2 mg/dl EKG: Yesterday SR, rate 65, QTc around 460 Telemetry reviewed: SR, SB, no AF Assessment and Plan 1. Enzyme rise: He did have a slight elevation of his troponin initially, however the first measurement was the highest and there was a descending pattern and currently it is normal. This is consistent with demand ischemia not an infarction, he has known coronary disease and with his congestive heart failure this is not surprising. He has no symptoms to suggest active ischemia. I would not pursue further evaluation. 2. Congestive heart failure: He describes sudden onset of peripheral edema, however he has lost 7 kg and therefore it must have taken some time for this fluid to develop, evidently he only noticed it shortly before admission. It is evidently diastolic in nature, he does not have systolic dysfunction. I would manage this with diuresis and fluid restriction, hopefully with daily weights recurrence can be avoided. He appears to be you hydrated currently. 3. QT: He does have a long QT, however his corrected QT interval has only changed by few milliseconds between December 2017, his admission electrocardiogram and the one on September 01, 2017. The T waves are different between them, they are inverted on September 01, but I would not ascribe too much significance to that. He is bradycardic which prolongs his QT and corrected the measurement is essentially unchanged this admission. His ECG yesterday has a slightly shorter calculated QTc. It would be prudent to avoid QT prolonging medications, I do not think we can start a beta-obey due to his resting bradycardia and therefore I would simply observe. 4. Sinus bradycardia: He has an element of sinus node dysfunction. When he came in his heart rate was about 68, but it is often 50 at rest and in the past he has had sinus bradycardia prompting discontinuation of beta blockade. I would avoid negative chronotropic medications but I do not think he has symptoms to suggest the need for a pacemaker. I would like to avoid a pacemaker if possible, but that is always a possibility if his heart rate slows further or if he has symptoms of bradycardia. 5. Possible atrial fibrillation: I do not see that he has atrial fibrillation, the 12-lead electrocardiogram from the evening of 09/01/2017 was computer read as such but it is not, it is an irregular rhythm which is sinus in origin (and was confirmed on that ECG as such subsequently). In addition telemetry monitoring suggested atrial fibrillation but I think that is just premature atrial beats. I would not consider anticoagulation at this point. I believe he will be going home soon, I will sign off. I will be happy to see him if I can be further help in his care. Thank you for allowing me to participate in his care.
[2017-09-03] MEDS: CARBIDOPA/LEVODOPA 25/100MG EXT REL TAB PO SCH ×3 (09:15→20:06)
[2017-09-03] MEDS: TOLTERODINE TARTRATE 2 MG TAB PO SCH ×2 (09:15→20:07)
[2017-09-03] MEDS: LOSARTAN POTASSIUM 50 MG TAB PO SCH (09:15)
[2017-09-03] MEDS: CLOPIDOGREL BISULFATE 75 MG TAB PO SCH (09:15)
[2017-09-03] MEDS: DOCUSATE SODIUM 100 MG/10 ML UDC PO SCH ×2 (09:16→20:07)
[2017-09-03] MEDS: FUROSEMIDE 20 MG TAB PO SCH (09:16)
[2017-09-03] MEDS: AMLODIPINE BESYLATE 5 MG TAB PO SCH ×2 (09:16→20:10)
[2017-09-03] MEDS: TRAVOPROST Z 0.004% OPH SOLN 2.5 ML BTL OP SCH (09:17)
[2017-09-03] MEDS: BOOST PLUS VANILLA PO SCH ×2 (09:24→17:09)
--- NOTE | 2017-09-03 10:22 | EEG Procedure Note ---
EEG Procedure Note Date of Service Sep 03, 2017. Start / End Times Start Time: 8:01 AM End Time: 8:21 AM Referring Physician Aayush Singh History This is a 87-year-old male with a change in mental status. EEG for further evaluation of possible seizure etiology. Home Medication List Scheduled Amlodipine Besylate (Norvasc), 2.5 MG PO DAILY Atorvastatin (Lipitor), 20 MG PO QPM Carbidopa-Levodopa (Sinemet Cr 25MG/100MG), 3 TAB PO TID Clopidogrel Bisulfate (Clopidogrel), 75 MG PO DAILY Losartan Potassium & Hydrochlo (Hyzaar), 1 TABLET PO QAM Metoprolol Tartrate (Lopressor) (Lopressor), 12.5 MG PO BID Rasagiline Mesylate (Azilect), 1 MG PO DAILY Tolterodine Tartrate (Tolterodine Tartrate), 2 MG PO BID Travoprost (Travatan Z), 1 DROPS OP QAM Inpatient Medication List Current Inpatient Medications Medications (Trade) Dose Ordered Sig/Janet Route Start Time Stop Time Status Last Admin Dose Admin Atorvastatin Calcium (Lipitor Tab) 20 mg QPM PO 08/25/17 21:00 09/24/17 20:59 09/01/17 20:48 20 MG Carbidopa/Levodopa (Sinemet Cr 25/ 100MG Tab) 3 tab TID PO 08/25/17 21:00 09/24/17 20:59 09/03/17 09:15 3 TAB Clopidogrel Bisulfate (plAVix TAB) 75 mg DAILY PO 08/26/17 08:00 09/25/17 08:59 09/03/17 09:15 75 MG Tolterodine Tartrate (Detrol Tab) 2 mg BID PO 08/25/17 21:00 09/24/17 20:59 09/03/17 09:15 2 MG Travoprost (Travatan Z) 1 drops QAM OP 08/26/17 08:00 09/25/17 08:59 09/03/17 09:17 1 DROPS Miscellaneous Information (Order Awaiting Action) 1 ea QS N/A 08/25/17 20:45 09/24/17 20:44 Heparin Sodium (Porcine) (Heparin Sq 5000 Unit/0.5ml) 5,000 unit Q8H SQ 08/25/17 18:00 4/19/18 17:59 09/03/17 09:18 5,000 UNIT Acetaminophen (Tylenol Tab) 650 mg Q4H PRN PO 08/25/17 20:00 09/24/17 19:59 Al Hydrox/Mg Hydrox/Simethicone (Maalox Max Susp) 15 ml Q4H PRN PO 08/25/17 20:00 09/24/17 19:59 Docusate Sodium (coLACE CAP) 100 mg BID PRN PO 08/25/17 21:00 09/24/17 20:59 08/26/17 08:41 100 MG Hydralazine HCl (HydrALAZINE INJ) 10 mg Q4 PRN IV. 08/31/17 08:30 09/24/17 20:59 09/02/17 15:34 10 MG Furosemide (Lasix Tab) 10 mg QAM PO 09/01/17 08:00 10/01/17 07:59 09/03/17 09:16 10 MG Docusate Sodium (coLACE SYRUP) 100 mg BID PO 08/31/17 20:00 09/30/17 19:59 09/03/17 09:16 100 MG Amlodipine Besylate (Norvasc Tab) 2.5 mg Q12H PO 09/01/17 20:00 09/25/17 08:59 09/03/17 09:16 2.5 MG Losartan Potassium (coZAAR TAB) 75 mg QAM PO 09/03/17 09:00 09/25/17 08:59 09/03/17 09:15 75 MG Enteral Nutritional Formula (Boost Plus Vanilla) 0.5 can BIDM PO 09/02/17 17:00 10/02/17 16:59 09/03/17 09:24 0.5 CAN Description This is a 21 electrode EEG with a single channel dedicated to limited EKG. The electrodes were placed in accordance with the International 10-20 system. At the start of this recording the patient was in reported altered mental status. Background was poorly organized with a poorly formed anterior to posterior gradient. Background was composed of symmetric moderate amplitude predominantly 6-7 Hz theta frequencies with intermixed faster frequencies. There was no well-formed posterior dominant rhythm. Hyperventilation and photic stimulation were not done. There was no state changes or sleep transients. Interpretation This is an abnormal routine EEG secondary to mild to moderate background disorganization and slowing. There was no electrographic seizures or epileptiform discharges. Clinical Correlation This EEG indicates a mild to moderate encephalopathy of nonspecific etiology.
--- NOTE | 2017-09-03 14:40 | Hospitalist Progress Note ---
Hospitalist Progress Note Date of Service Sep 03, 2017. Subjective Pt evaluation today including: conversation w/ patient, physical exam, lab review, review of studies, review of inpatient medication list Patient seen and evaluated. Alert and oriented. NSR with PACs/PVCs on monitor. Eating lunch during my visit. Verbalized no issues. BPs remain elevated however rapidly drops with medications and is orthostatic + yesterday. Seems to be improving today. Orthostatics drawn today negative. BPs seem to be slightly better in 150s systolically today Hopefully can go to [facility] tomorrow Constitutional: No fever, No chills Respiratory: No cough, No shortness of breath Cardiovascular: No chest pain Abdomen: No pain, No nausea, No vomiting Medications Current Inpatient Medications Medications (Trade) Dose Ordered Sig/Janet Route Start Time Stop Time Status Last Admin Dose Admin Atorvastatin Calcium (Lipitor Tab) 20 mg QPM PO 08/25/17 21:00 09/24/17 20:59 09/01/17 20:48 20 MG Carbidopa/Levodopa (Sinemet Cr 25/ 100MG Tab) 3 tab TID PO 08/25/17 21:00 09/24/17 20:59 09/03/17 14:13 3 TAB Clopidogrel Bisulfate (plAVix TAB) 75 mg DAILY PO 08/26/17 08:00 09/25/17 08:59 09/03/17 09:15 75 MG Tolterodine Tartrate (Detrol Tab) 2 mg BID PO 08/25/17 21:00 09/24/17 20:59 09/03/17 09:15 2 MG Travoprost (Travatan Z) 1 drops QAM OP 08/26/17 08:00 09/25/17 08:59 09/03/17 09:17 1 DROPS Miscellaneous Information (Order Awaiting Action) 1 ea QS N/A 08/25/17 20:45 09/24/17 20:44 Heparin Sodium (Porcine) (Heparin Sq 5000 Unit/0.5ml) 5,000 unit Q8H SQ 08/25/17 18:00 09/24/17 17:59 09/03/17 09:18 5,000 UNIT Acetaminophen (Tylenol Tab) 650 mg Q4H PRN PO 08/25/17 20:00 09/24/17 19:59 Al Hydrox/Mg Hydrox/Simethicone (Maalox Max Susp) 15 ml Q4H PRN PO 08/25/17 20:00 09/24/17 19:59 Docusate Sodium (coLACE CAP) 100 mg BID PRN PO 08/25/17 21:00 09/24/17 20:59 08/26/17 08:41 100 MG Hydralazine HCl (HydrALAZINE INJ) 10 mg Q4 PRN IV. 08/31/17 08:30 09/24/17 20:59 09/02/17 15:34 10 MG Furosemide (Lasix Tab) 10 mg QAM PO 09/01/17 08:00 10/01/17 07:59 09/03/17 09:16 10 MG Docusate Sodium (coLACE SYRUP) 100 mg BID PO 08/31/17 20:00 09/30/17 19:59 09/03/17 09:16 100 MG Amlodipine Besylate (Norvasc Tab) 2.5 mg Q12H PO 09/01/17 20:00 09/25/17 08:59 09/03/17 09:16 2.5 MG Losartan Potassium (coZAAR TAB) 75 mg QAM PO 09/03/17 09:00 09/25/17 08:59 09/03/17 09:15 75 MG Enteral Nutritional Formula (Boost Plus Vanilla) 0.5 can BIDM PO 09/02/17 17:00 10/02/17 16:59 09/03/17 09:24 0.5 CAN Objective Vital Signs Date Time Temp Pulse Resp B/P (MAP) Pulse Ox O2 Delivery O2 Flow Rate FiO2 09/03/17 12:00 99 Room Air 09/03/17 11:22 37.1 66 18 158/73 (101) 92 Room Air 09/03/17 11:03 69 145/71 (95) 81 162/72 (102) 69 186/83 (117) 09/03/17 08:00 99 Room Air 09/03/17 07:26 36.5 63 18 205/92 (129) 96 Room Air 09/03/17 04:20 36.6 68 16 168/76 (106) 95 Room Air 09/03/17 04:00 Room Air 09/03/17 00:00 Room Air 09/02/17 23:45 37.0 68 18 145/56 (85) 90 Room Air 09/02/17 16:00 Room Air 09/02/17 16:00 93 Room Air 09/02/17 15:34 191/84 (119) 09/02/17 15:25 36.4 56 18 192/65 (107) 93 Physical Exam General Appearance: no apparent distress, + thin Neck: supple, no JVD, trachea midline Respiratory/Chest: lungs clear, normal breath sounds, no respiratory distress, no accessory muscle use Cardiovascular: regular rate, rhythm, no gallop, no murmur Abdomen: normal bowel sounds, non tender, soft Extremities: no pedal edema Neurologic/Psychiatric: alert, oriented x 3 Skin: normal color Laboratory Results Last 24 Hours Test 09/03/17 05:44 White Blood Count 4.54 K/uL Red Blood Count 3.48 M/uL Hemoglobin 9.5 g/dL Hematocrit 31.2 % Mean Corpuscular Volume 89.7 fL Mean Corpuscular Hemoglobin 27.3 pg Mean Corpuscular Hemoglobin Concent 30.4 g/dl Platelet Count 158 K/uL Mean Platelet Volume 10.9 fL Neutrophils (%) (Auto) 69.9 % Lymphocytes (%) (Auto) 19.6 % Monocytes (%) (Auto) 7.7 % Eosinophils (%) (Auto) 2.4 % Basophils (%) (Auto) 0.0 % Neutrophils # (Auto) 3.17 K/uL Lymphocytes # (Auto) 0.89 K/uL Monocytes # (Auto) 0.35 K/uL Eosinophils # (Auto) 0.11 K/uL Basophils # (Auto) 0.00 K/uL RDW Standard Deviation 49.9 fL RDW Coefficient of Variation 15.2 % Immature Granulocyte % (Auto) 0.4 % Immature Granulocyte # (Auto) 0.02 K/uL Sodium Level 142 mmol/L Potassium Level 4.5 mmol/L Chloride Level 111 mmol/L Carbon Dioxide Level 22 mmol/L Anion Gap 9.0 mmol/L Blood Urea Nitrogen 62 mg/dl Creatinine 2.42 mg/dl Est Creatinine Clear Calc Drug Dose 17.6 ml/min Estimated GFR () 26.8 Estimated GFR (Non- 23.1 BUN/Creatinine Ratio 25.7 Random Glucose 100 mg/dl Calcium Level 8.4 mg/dl Phosphorus Level 3.9 mg/dl Magnesium Level 2.2 mg/dl 25-Hydroxy Vitamin D Total 19.9 ng/ml Assessment and Plan 87yo male presenting with progressive bilateral LE edema, weakness, increased frequency of falls. Acute on Chronic Diastolic CHF: RESOLVED - Continue Lasix 10 mg daily; Monitor electrolytes HTN: +Orthostatics (Resolved today) - Continue Norvasc 2.5 mg BID; continue reduced Losartan at 75 mg daily; Lasix may give additional coverage - Hydralazine PRN; Careful with BB as he has a tendency to have bradycardia Questioned A Fib: - Cardiology following - appears more irregular with underlying sinus rhythm. Not recommending AC which would agree given falls and risk likely would outweigh benefits CAD with Type 2 SC/Demand on Admission: STABLE - Mild elevation in troponins - stable - Atorvastatin 20 mg daily and Plavix 75 mg daily Parkinson's Disease/Multiple Falls: - Sinemet 3 tabs TID - PT/OT following - plans for rehab at [facility] Overactive Bladder: STABLE - Detrol 2 mg BID DVT Prophylaxis: Heparin 5000 units SC Q8H Code Status: DNR per previous discussion with patient and family Disposition: [facility] - possible tomorrow Continued [facility] stay due to: ambulation difficulties Discharge planning: longterm facility
[2017-09-03] MEDS: ATORVASTATIN 20 MG TAB PO SCH (20:09)
[2017-09-04] MEDS: HEPARIN SOD 5000 UNIT/0.5 ML CARP SQ SCH ×2 (02:16→08:32)
[2017-09-04 03:54] VITALS: BP 165/69; PULSE 56; TEMP 36.4; O2SAT 91
[2017-09-04 07:21] VITALS: BP 203/78; PULSE 67; TEMP 36.3; O2SAT 94
[2017-09-04] MEDS: AZILECT~ORDER AWAITING ACTION SCH ×2 (08:00)
[2017-09-04 08:16] LABS: CALCIUM 8.7 mg/dl (8.5-10.1); CREATININE 2.3 mg/dl (0.60-1.40); POTASSIUM 4.3 mmol/L (3.5-5.1)
[2017-09-04] MEDS: AMLODIPINE BESYLATE 5 MG TAB PO SCH (08:25)
[2017-09-04] MEDS: TOLTERODINE TARTRATE 2 MG TAB PO SCH (08:25)
[2017-09-04] MEDS: CLOPIDOGREL BISULFATE 75 MG TAB PO SCH (08:26)
[2017-09-04] MEDS: DOCUSATE SODIUM 100 MG/10 ML UDC PO SCH (08:26)
[2017-09-04] MEDS: CARBIDOPA/LEVODOPA 25/100MG EXT REL TAB PO SCH (08:26)
[2017-09-04] MEDS: FUROSEMIDE 20 MG TAB PO SCH (08:26)
[2017-09-04] MEDS: TRAVOPROST Z 0.004% OPH SOLN 2.5 ML BTL OP SCH (08:27)
[2017-09-04] MEDS: BOOST PLUS VANILLA PO SCH (08:27)
[2017-09-04] MEDS: LOSARTAN POTASSIUM 50 MG TAB PO SCH (08:27)
[2017-09-04] MEDS ORDERED: CHOLECALCIFEROL 1000 INTER.UNIT TAB PO SCH (09:00)
[2017-09-04 11:25] VITALS: BP 155/72; PULSE 67; TEMP 36.6; O2SAT 93
[2017-09-04] MEDS ORDERED: DOCU60SY11 PO (11:31)
[2017-09-04] MEDS ORDERED: CZR50 PO (11:31)
[2017-09-04] MEDS ORDERED: NRV5 PO (11:31)
[2017-09-04] MEDS ORDERED: NUTR-977 PO (11:31)
[2017-09-04] MEDS ORDERED: VTMD1000 PO (11:31)
[2017-09-04] MEDS ORDERED: LSX20 PO (11:31)
--- NOTE | 2017-09-04 11:32 | Discharge Instructions ---
Discharge Instructions Date of Service Sep 04, 2017. Admission Reason for Admission: Chf, Elevated Troponin Discharge Discharge Diagnosis / Problem: Accelerated HTN: +Orthostatics Discharge Goals Goal(s): Decrease discomfort, Improve function, Increase independence, Improve disease control, Improve nutritional status, Learn about illness, Diagnostic testing, Therapeutic intervention, Prevent Disease Progression, Specific goals Activity Recommendations Activity Limitations: resume your previous activity . Instructions / Follow-Up Instructions / Follow-Up you have acute on Chronic Diastolic CHF: Continue Lasix 10 mg daily you have labial and accelerated HTN: +Orthostatics, adjusting blood pressure medicine and ordered compression stocking in bilateral lower extremities, need to continue your current blood pressure medicine: Norvasc 2.5 mg twice daily, Losartan at 75 mg daily; I also order Hydralazine oral as need when systolic blood pressure >200, you have Parkinsons Disease/Multiple Falls: Significant orthostatic hypotensive may also related to the end-stage of Parkinson's disease really need to pay attention of fall precaution you need to have labs of BMP, mag, in 1 week in [facility] because of heart conditions you need to continue Ensure plus Vanilla as ordered because of malnutrition you need to continue oral Vitamin D because of vitamin D deficiency - you need to follow up with your primary care physician in 1 week, - take medication as instructed, never overdose or any misuse, or take with alcohol, because misuse of medicine may cause organ damage or , call your primary care physician if have questions of medicaitons. - call your primary care physician OR go to local emergency room if has any fever/chill, chest pain, shortness of breathing, nausea/vomiting/abdominal pain , facial droop/slurry speech/local weakness, or if has any questions. - fall precaution - diet as instructed Current Hospital Diet Patient's current hospital diet: Low Sodium Diet (2gm Na) Discharge Diet Recommended Diet: AHA Diet (Heart Healthy) Pending Studies Studies pending at discharge: no Medical Emergencies . Who to Call and When: Medical Emergencies: If at any time you feel your situation is an emergency, please call 911 immediately. . Non-Emergent Contact Non-Emergency issues call your: Primary Care Provider . . "Provider Documentation" section prepared by Aayush Singh. .
[2017-09-04 13:05] VITALS: BP 155/72; PULSE 67; TEMP 36.6; O2SAT 93
--- NOTE | 2017-09-04 16:16 | Discharge Summary ---
Discharge Summary Date of Service Sep 04, 2017. Discharge Summary Admission Date: Aug 25, 2017 at 20:19 Discharge Date: Sep 04, 2017 Discharge Disposition: half-way facility Principal Diagnosis: acute on Chronic Diastolic CHF Problems/Secondary Diagnoses: labial and accelerated HTN: +Orthostatics, Parkinsons Disease/Multiple Falls: Immunizations: Have You Had Influenza Vaccine: N/A History of Tetanus Vaccine?: Yes History of Pneumococcal: Unknown History of Hepatitis B Vaccine: No Consultations: Cardiology Medication Reconciliation New Medications: Amlodipine Besylate (Amlodipine Besylate) 5 Mg Tab 2.5 MG PO Q12H for 30 Days, #30 TAB Cholecalciferol (Vitamin D3) 1,000 Inter.unit Tab 1000 INTER.UNIT PO QAM for 30 Days, #3 TAB Docusate Sodium (Gnp Stool Softener) 60 Mg/15 Ml Syp 100 MG PO BID for 30 Days Enteral Nutrition Formula (Ensure Plus Vanilla) 1 Can Liqd 0.5 CAN PO BIDM for 30 Days Furosemide (Furosemide) 20 Mg Tab 10 MG PO QAM for 30 Days, #15 TAB Losartan Potassium (Losartan Potassium) 50 Mg Tab 75 MG PO QAM for 30 Days, #45 TAB Continued Medications: Atorvastatin (Lipitor) 20 Mg Tab 20 MG PO QPM, TAB Carbidopa-Levodopa (Sinemet Cr 25MG/100MG) 1 Tab Tab 3 TAB PO TID for 30 Days, #270 TAB Clopidogrel Bisulfate (Clopidogrel) 75 Mg Tab 75 MG PO DAILY, #90 Rasagiline Mesylate (Azilect) 1 Mg Tab 1 MG PO DAILY, TAB Tolterodine Tartrate (Tolterodine Tartrate) 2 Mg Tab 2 MG PO BID Travoprost (Travatan Z) 0.004 % En 1 DROPS OP QAM, #1 BTL 5 Refills Discontinued Medications: Amlodipine Besylate (Norvasc) 2.5 Mg Tab 2.5 MG PO DAILY Losartan Potassium & Hydrochlo (Hyzaar) 1 Tab Tab 1 TABLET PO QAM 100-25 mg tablet Metoprolol Tartrate (Lopressor) (Lopressor) 25 Mg Tab 12.5 MG PO BID, TAB Discharge Exam Sitting up in chair, pleasant, conversational, no complaint Review of Systems: Constitutional: + weakness, + fatigue, No fever, No chills, No sweats, No weight loss, No problem reported Eyes: No worsening of vision, No eye pain, No redness, No discharge, No diplopia, No problem reported ENT: No hearing loss, No unusual epistaxis, No nasal symptoms, No sore throat, No tinnitus, No dental problems, No trouble swallowing, No problem reported Respiratory: No cough, No sputum, No wheezing, No shortness of breath, No dyspnea on exertion, No dyspnea at rest, No hemoptysis, No problem reported Cardiovascular: No chest pain, No orthopnea, No PND, No edema, No claudication, No palpitations, No problem reported Abdomen: No pain, No nausea, No vomiting, No diarrhea, No constipation, No GI bleeding, No problem reported Musculoskeletal: No joint pain, No muscle pain, No swelling, No calf pain, No problem reported Genitourinary - Male: No hematuria, No dysuria, No urinary frequency, No urinary urgency, No urinary hesitancy, No urinary retention, No urinary incontinence, No penile discharge, No lesions, No impotence, No problem reported Neurologic: No memory loss, No paralysis, No weakness, No numbness/tingling , No vertigo, No balance problems, No problem reported Endocrine: No fatigue, No excessive thirst, No excessive urination, No problem reported Hematologic / Lymphatic: No abnormal bleeding/bruising, No clotting problems , No swollen lymph nodes, No night sweats, No problem reported Integumentary: No rash, No itch, No new/changing skin lesions, No color change, No bleeding, No problem reported Physical Exam: General Appearance: WD/WN, no apparent distress, + cachetic (Frail looking) , + thin Eyes: normal inspection, PERRL, EOMI ENT: normal ENT inspection, hearing grossly normal Neck: supple, no adenopathy Respiratory/Chest: chest non-tender, normal breath sounds, no respiratory distress, + decreased breath sounds Cardiovascular: regular rate, rhythm, no edema, no gallop Abdomen / GI: normal bowel sounds, non tender, soft, no organomegaly, no pulsatile mass Extremities: normal inspection, normal capillary refill Neurologic/Psychiatric: consumer loan specialist II-XII nml as tested, no motor/sensory deficits , alert, normal mood/affect, normal reflexes, oriented x 3 Skin: normal color, warm/dry Hospital Course 87yo male admitted on August 25, 2017 because of progressive bilateral LE edema, weakness, increased frequency of falls. Upon admission he was found has acute on Chronic Diastolic CHF: RESOLVED, after stop Lasix for a while resumed and continue Lasix 10 mg daily; Monitor electrolytes has been stable Accelerated HTN: +Orthostatics hypotension, adjusting blood pressure medicine and ordered compression stocking in bilateral lower extremities He was on 4 category of blood pressure medicine at home, beta-obey was stopped because of bradycardia, has tested Norvasc dose at 5 mg in the morning on 2.5 mg , and losartan 500 mg p.o. daily however his blood pressure significant drop, which was as low as 90s, low blood pressure had caused his mental status getting more confused generally very weak, was worried and concerned about his, there was at least 2 episodes of near syncope or seizure- like episodes, EEG was done MRI was done has rule off seizure epilepsy or CVA, I believe the episodes were related to the significant low systolic blood pressure After testing patient's systolic blood pressure was range at 120-180, diastolic blood pressure was ranging at 60- 90, patient has no any episodes of near syncope, Therefore will continue Norvasc 2.5 mg BID; continue reduced Losartan at 75 mg daily; Lasix may give additional coverage, plus Hydralazine PRN; will not to give BB as he has a tendency to have bradycardia Questioned A Fib: more irregular with underlying sinus rhythm cardiology. Discussed with student success coach patient has no A. fib TIA all seizure episodes, all possible because of hypotensive, has rule out acute CVA by brain MRI and EEG were not remarkable CAD: STABLE Parkinsons Disease/Multiple Falls: Significant orthostatic hypotensive may also related to the end-stage of Parkinson's disease Overactive Bladder: STABLE possible Type 2 NE due to demand ischemia upon admission Planning juniper soon , possible tomorrow Instructions / Follow-Up you have acute on Chronic Diastolic CHF: Continue Lasix 10 mg daily you have labial and accelerated HTN: +Orthostatics, adjusting blood pressure medicine and ordered compression stocking in bilateral lower extremities, need to continue your current blood pressure medicine: Norvasc 2.5 mg twice daily, Losartan at 75 mg daily; I also order Hydralazine oral as need when systolic blood pressure >200, you have Parkinsons Disease/Multiple Falls: Significant orthostatic hypotensive may also related to the end-stage of Parkinson's disease really need to pay attention of fall precaution you need to have labs of BMP, mag, in 1 week in [facility] because of heart conditions you need to continue Ensure plus Vanilla as ordered because of malnutrition you need to continue oral Vitamin D because of vitamin D deficiency - you need to follow up with your primary care physician in 1 week, - take medication as instructed, never overdose or any misuse, or take with alcohol, because misuse of medicine may cause organ damage or , call your primary care physician if have questions of medicaitons. - call your primary care physician OR go to local emergency room if has any fever/chill, chest pain, shortness of breathing, nausea/vomiting/abdominal pain , facial droop/slurry speech/local weakness, or if has any questions. - fall precaution - diet as instructed Total Time Spent: Greater than 30 minutes This includes examination of the patient, discharge planning, medication reconciliation, and communication with other providers. Discharge Instructions Please refer to the electronic Patient Visit Report (Discharge Instructions) for additional information. Additional Copies To Murray Brady M.D.; Gene Crawford M.D.
== END 2017-09-04 13:48 | DRG 280 ==
LOC: C.EDB 16:07 → C.MS4W 20:19 → ENRESERV 20:42 → C.MS4W 08-31 13:49 → ENRESERV 09-01 11:30 → C.MED 09-01 12:09
PROVIDERS: ADMIT Internal Medicine; ATTEND Hospitalist
DX: I21.A1 Myocardial infarction type 2 (principal); I50.33 Acute on chronic diastolic (congestive) heart failure; I95.9 Hypotension, unspecified; I11.0 Hypertensive heart disease with heart failure; R60.9 Edema, unspecified; I25.10 Atherosclerotic heart disease of native coronary artery without angina pectoris; N32.81 Overactive bladder; K59.00 Constipation, unspecified; Z66 Do not resuscitate; Z82.49 Family history of ischemic heart disease and other diseases of the circulatory system; Z83.3 Family history of diabetes mellitus; Z91.81 History of falling

== ENCOUNTER → 2017-10-26 | Outpatient (CLI) | payer BC ==
[~2017-10-26] MED LIST changes: +APR25 PO; -CARB25TA PO; +CARB25TA16 PO; +CHOL1000 PO; +DOCU100C31 PO; +IMDSR30 PO; -LOSA100T2 PO; +LPR25 PO; +LSX40 PO; -METO25TA56 PO; +NRV5 PO; -PLV75 PO
[2017-10-26 17:01] LABS: BLOOD UREA NITROGEN 37 mg/dl (7-18); CALCIUM 8.4 mg/dl (8.5-10.1); CARBON DIOXIDE 24 mmol/L (21-32); CREATININE 2.35 mg/dl (0.60-1.40); GLUCOSE 142 mg/dl (70-99); POTASSIUM 4.1 mmol/L (3.5-5.1); SODIUM 140 mmol/L (136-145)
== END | disposition home or self-care (01) ==
LOC: C.LAB1850 15:11
PROVIDERS: ATTEND Physician Assistant
DX: N18.3 Chronic kidney disease, stage 3 (moderate) (principal)

== ENCOUNTER → 2018-01-08 | Outpatient (CLI) | payer BC ==
[2018-01-08 13:28] LABS: HEMATOCRIT 30.2 % (42-52); HEMOGLOBIN 9.1 g/dL (14.0-18.0); MEAN CORPUSCULAR HEMOGLOBIN 26.2 pg (25-34); MEAN CORPUSCULAR HGB CONC 30.1 g/dl (32-36); MEAN PLATELET VOLUME 11.6 fL (7.4-10.4); PLATELET COUNT 131 K/uL (130-400); RED CELL DISTRIBUTION WIDTH CV 15.3 % (11.5-14.5); RED CELL DISTRIBUTION WIDTH SD 49.2 fL (36.4-46.3); WHITE BLOOD COUNT 4.28 K/uL (4.8-10.8)
[2018-01-08 14:07] LABS: ALBUMIN 3.7 gm/dl (3.4-5.0); BLOOD UREA NITROGEN 56 mg/dl (7-18); CALCIUM 8.4 mg/dl (8.5-10.1); CARBON DIOXIDE 24 mmol/L (21-32); CREATININE 2.34 mg/dl (0.60-1.40); GLUCOSE 85 mg/dl (70-99); PHOSPHORUS 3.7 mg/dl (2.5-4.9); POTASSIUM 4.1 mmol/L (3.5-5.1); SODIUM 137 mmol/L (136-145); TRANSFERRIN 229 mg/dl (200-360)
== END | disposition home or self-care (01) ==
LOC: C.LAB1850 11:41
PROVIDERS: ATTEND Internal Medicine Nephrology
DX: I12.9 Hypertensive chronic kidney disease with stage 1 through stage 4 chronic kidney disease, or unspecified chronic kidney disease (principal); N18.3 Chronic kidney disease, stage 3 (moderate); R80.9 Proteinuria, unspecified; D64.9 Anemia, unspecified; G20 Parkinson's disease